=== PATIENT | male | born 1980 | race Caucasian/White ===

== ENCOUNTER → 2017-03-18 08:40 | Outpatient (CLI) | payer MEDICAID, SELFPAY ==
[2017-03-18 10:39] LABS: Absolute Lymphocyte Count 1.92 X10^3/ul (0.83-4.51); Absolute Neutrophil Count 4.6 X10^3/uL (2.0-7.7); Basophil# 0.07 X10^3/uL; Basophil% 0.9 % (0-1); Eosinophil# 0.43 X10^3/uL; Eosinophils% 5.5 % (0-5); Hematocrit 47.2 % (40-54); Hemoglobin 16.7 g/dl (13.0-16.5); Lymphocyte # 1.92 X10^3/ul (4.0); Lymphocyte % 24.5 % (19-41); Mean Corp Hgb Conc 35.4 g/gl (32-36); Mean Corpuscular Hgb 31.2 pg (27.0-32.0); Mean Corpuscular Volume 88.2 fL (80-94); Mean Platelet Vol. 9.7 fl (6.2-12.0); Monocyte% 10.2 % (0-10); Neutrophil % 58.5 % (47-70); POSITIVE COUNT NO; POSITIVE DIFFERENTIAL NO; POSITIVE MORPHOLOGY NO; Platelet Count 228 K/mm3 (150-450); RBC Distribution Width CV 12.5 % (11.6-14.6); RBC Distribution Width SD 40.4 fl (35.1-43.9); Red Blood Count 5.35 M/mm3 (4.6-6.2); White Blood Count 7.9 K/mm3 (4.4-11.0)
[2017-03-18 11:02] LABS: ALB/GLOB Ratio 1.1 RATIO (0.9-2.4); AST(SGOT) 10 U/L (15-37); Alanine Aminotransfer ALT/SGPT 37 U/L (16-61); Alkaline Phosphatase 53 U/L (45-117); Anion Gap 6 (5-15); BUN 20 mg/dL (7-18); BUN/Creat Ratio 19.6 RATIO (10-20); Calcium,Total 8.8 mg/dL (8.5-10.1); Chloride 106 mmol/L (98-107); Cholesterol 208 mg/dL (200); Creatinine, Serum 1.02 mg/dL (0.70-1.30); EST Glomerular Filtration Rate 87 mL/min (>60); Est Glom Filt Rate - Afr Amer 105 mL/min (>60); Globulin 3.5 g/dL (2.2-4.2); Glucose 104 mg/dL (74-106); High Density Lipoprotein 26 mg/dL; Potassium 4.2 mmol/L (3.5-5.1); Protein, Total 7.5 g/dL (6.4-8.2); Sodium Level 139 mmol/L (136-145); Triglycerides 601 mg/dL
== END ==
PROVIDERS: Family Provider Family Medicine; PCP Family Medicine; Visit Provider Family Medicine
DX: Z00.00 Encounter for general adult medical examination without abnormal findings (principal); E78.1 Pure hyperglyceridemia
CPT/HCPCS: 36415; 80053; 80061; 85025

== ENCOUNTER 2017-04-27 16:14 | Emergency (ER) | payer MEDICAID, SELFPAY ==
[2017-04-27 16:17] VITALS: BP 116/78; PULSE 92; PULSE 94; RESP 14; TEMP 37.1; O2SAT 97; O2SAT 99; BMI 29.3
--- NOTE | 2017-04-27 16:56 | EKG12_ITS ---
Test Reason : CP Blood Pressure : / mmHG Vent. Rate : 111 BPM Atrial Rate : 111 BPM P-R Int : 130 ms QRS Dur : 084 ms QT Int : 324 ms P-R-T Axes : 065 065 071 degrees QTc Int : 440 ms Sinus tachycardia Otherwise normal ECG Confirmed by DOROTHY ANDRADE MD ([id number]), pictures editor TIERRA ZEE ([id number] on 05/01/2017 2:23:49 PM Referred By: KANDIS Confirmed By:DOROTHY ANDRADE MD
--- NOTE | 2017-04-27 16:56 | RAD_ITS ---
STUDY: X-RAY CHEST REASON FOR EXAM: Male, 36 years old. Chest pain and nausea intermittently since Friday. History of hypertension. TECHNIQUE: Single AP portable view of the chest. COMPARISON: Prior chest radiograph of December 23, 2016 FINDINGS: The lungs are clear and expanded. There is no demonstrated pleural abnormality. Normal size heart. Normal mediastinum and noe. Normal visualized pulmonary arteries. Normal visualized aortic arch and descending thoracic aorta. Normal visualized thoracic spine. Normal visualized ribs, clavicles, and shoulders. There is no demonstrated abnormality of the visualized soft tissue structures of the upper abdomen. RAD/Chest 1 View (Portable) IMPRESSION: No acute cardiopulmonary findings or changes. Electronically Signed: Selma Ontiveros MD at 17:31 EDT , Service support ,
--- NOTE | 2017-04-27 17:08 | ED.DCSUM_ITS ---
- ER Visit Summary Date of Service: 04/27/17 Chief Complaint: Chest pain History of Present Illness: The patient is a 36 M who presents with chest pain that has been getting worse over the past 4 days. Patient states the pain is intermittent. Patient states the pain is in the substernal area and radiates into his upper abdomen. Patient states the pain is worse with stress. Patient admits to some nausea and vomiting. Patient admits to some mild diaphoresis. Patient denies any shortness of breath. Patient denies any fevers but admits to some chills. Patient has cardiac risk factors of hypercholesterolemia and smoking. Physical Examination: Vital signs are stable. Patient is afebrile. Patient is in no acute distress. Oral mucosa is pink and moist. Neck is supple. Trachea is midline. There is no JVD or lymphadenopathy. Heart was regular rate and rhythm. There are no murmurs noted. Lungs were clear and equal bilaterally. Abdomen is soft. There is normal bowel sounds. There is tenderness of the upper abdomen. There is voluntary guarding. There is no rebound noted. Cranial nerves II through XII are intact. There are no focal motor or sensory deficits noted. The remaining physical exam is within normal limits. Test Results: EKG showed sinus tachycardia with rate of 111. There are no acute ST or T-wave changes noted. There are no prior EKGs available for comparison. CBC, comprehensive metabolic profile, lipase, and troponin were obtained and were all within normal limits. Chest x-ray was within normal limits. Emergency Department Course and Treatment: Patient states his chest pain has resolved but he still has some mild abdominal pain. Patient states he takes omeprazole at home. Patient was encouraged to take that. Patient was instructed to follow-up with his primary care physician in 5-7 days. Patient understood and was agreeable with the plan. All questions were answered. Disposition: Discharge home Impression: Chest pain of uncertain etiology This note was generated with [employer] dictation software. It may contain incorrect words, spelling, and punctuation that were not noted in review of the chart prior to signing ED Disposition - Plan for ED Patient: Disposition: Home or Assisted Living Chief Complaint: Chest Pain Diagnosis: Chest pain of uncertain etiology Instructions: ED Chest Pain Atypical Unkn Cause Referrals: Bruno Tim DO [Primary Care Provider] -
[2017-04-27 17:15] LABS: Absolute Lymphocyte Count 2.33 X10^3/ul (0.83-4.51); Absolute Neutrophil Count 6.1 X10^3/uL (2.0-7.7); Basophil# 0.06 X10^3/uL; Basophil% 0.6 % (0-1); Eosinophil# 0.12 X10^3/uL; Eosinophils% 1.3 % (0-5); Hematocrit 44.7 % (40-54); Hemoglobin 16.2 g/dl (13.0-16.5); Lymphocyte # 2.33 X10^3/ul (4.0); Lymphocyte % 24.9 % (19-41); Mean Corp Hgb Conc 36.2 g/gl (32-36); Mean Corpuscular Hgb 31.5 pg (27.0-32.0); Mean Corpuscular Volume 86.8 fL (80-94); Mean Platelet Vol. 9.4 fl (6.2-12.0); Monocyte# 0.77 X10^3/uL; Monocyte% 8.2 % (0-10); Neutrophil # 6.06 X10^3/uL (2.7-7.7); Neutrophil % 64.7 % (47-70); POSITIVE COUNT NO; POSITIVE DIFFERENTIAL NO; POSITIVE MORPHOLOGY NO; Platelet Count 269 K/mm3 (150-450); RBC Distribution Width CV 12.5 % (11.6-14.6); RBC Distribution Width SD 39.4 fl (35.1-43.9); Red Blood Count 5.15 M/mm3 (4.6-6.2); White Blood Count 9.4 K/mm3 (4.4-11.0)
[2017-04-27] MEDS: Aspirin 81 MG TAB.CHEW 324 MG PO (17:17)
[2017-04-27 17:36] LABS: ALB/GLOB Ratio 1.2 RATIO (0.9-2.4); AST(SGOT) 15 U/L (15-37); Alanine Aminotransfer ALT/SGPT 28 U/L (16-61); Albumin, Serum 3.9 g/dL (3.2-5.0); Alkaline Phosphatase 37 U/L (45-117); Anion Gap 10 (5-15); BUN 11 mg/dL (7-18); BUN/Creat Ratio 10.3 RATIO (10-20); Calcium,Total 8.4 mg/dL (8.5-10.1); Chloride 105 mmol/L (98-107); Creatinine, Serum 1.07 mg/dL (0.70-1.30); EST Glomerular Filtration Rate 82 mL/min (>60); Est Glom Filt Rate - Afr Amer 99 mL/min (>60); Estimated Creatinine Clearance 108.83 ml/min; Globulin 3.3 g/dL (2.2-4.2); Glucose 110 mg/dL (74-106); Lipase 206 U/L (73-393); Potassium 3.3 mmol/L (3.5-5.1); Protein, Total 7.2 g/dL (6.4-8.2); Sodium Level 140 mmol/L (136-145)
[2017-04-27 18:38] VITALS: BP 125/75; PULSE 87; RESP 16; O2SAT 96
[2017-04-27 19:04] VITALS: BP 136/78; PULSE 85; RESP 14; O2SAT 98
[2017-04-27 19:14] VITALS: BP 130/80; PULSE 80; RESP 14; O2SAT 99
== END 2017-04-27 19:15 | disposition home or self-care (01) ==
PROVIDERS: Emergency Provider Emergency Medicine; Family Provider Family Medicine; PCP Family Medicine
DX: R07.89 Other chest pain (principal); R00.0 Tachycardia, unspecified; R11.2 Nausea with vomiting, unspecified; R61 Generalized hyperhidrosis; R68.83 Chills (without fever); E78.00 Pure hypercholesterolemia, unspecified; F17.210 Nicotine dependence, cigarettes, uncomplicated
CPT/HCPCS: 71045; 80053; 83690; 84484; 85025; 93005; 99285; J7030; A4216

== ENCOUNTER 2017-05-13 18:02 | Emergency (ER) | payer MEDICAID, SELFPAY ==
[2017-05-13 18:04] VITALS: BP 146/106; PULSE 104; RESP 18; TEMP 36.8; O2SAT 96; BMI 28.0
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
[2017-05-13 19:03] LABS: Absolute Lymphocyte Count 2.06 X10^3/ul (0.83-4.51); Absolute Neutrophil Count 7.5 X10^3/uL (2.0-7.7); Basophil# 0.01 X10^3/uL; Basophil% 0.1 % (0-1); Eosinophil# 0.15 X10^3/uL; Eosinophils% 1.4 % (0-5); Hematocrit 45.7 % (40-54); Hemoglobin 15.8 g/dl (13.0-16.5); Lymphocyte # 2.06 X10^3/ul (4.0); Lymphocyte % 19.5 % (19-41); Mean Corp Hgb Conc 34.6 g/gl (32-36); Mean Corpuscular Hgb 30.9 pg (27.0-32.0); Mean Corpuscular Volume 89.3 fL (80-94); Mean Platelet Vol. 9.5 fl (6.2-12.0); Monocyte# 0.85 X10^3/uL; Neutrophil # 7.49 X10^3/uL (2.7-7.7); Neutrophil % 70.8 % (47-70); Platelet Count 249 K/mm3 (150-450); RBC Distribution Width CV 13.2 % (11.6-14.6); RBC Distribution Width SD 43.2 fl (35.1-43.9); Red Blood Count 5.12 M/mm3 (4.6-6.2); White Blood Count 10.6 K/mm3 (4.4-11.0)
[2017-05-13 19:04] LABS: POSITIVE COUNT NO; POSITIVE DIFFERENTIAL NO; POSITIVE MORPHOLOGY NO
[2017-05-13 19:09] LABS: Anion Gap 6 (5-15); BUN 14 mg/dL (7-18); BUN/Creat Ratio 12.4 RATIO (10-20); Calcium,Total 8.4 mg/dL (8.5-10.1); Chloride 111 mmol/L (98-107); Creatinine, Serum 1.13 mg/dL (0.70-1.30); EST Glomerular Filtration Rate 77 mL/min (>60); Est Glom Filt Rate - Afr Amer 93 mL/min (>60); Estimated Creatinine Clearance 103.05 ml/min; Glucose 98 mg/dL (74-106); Potassium 3.7 mmol/L (3.5-5.1); Sodium Level 141 mmol/L (136-145)
[2017-05-13 19:17] LABS: Amphetamine Urine VISTA NEGATIVE (<1000 ng/mL); Barbiturate Urine VISTA NEGATIVE (< 200 ng/mL); Benzodiazepine Urine VISTA NEGATIVE (< 200 ng/mL); Cocaine Urine VISTA NEGATIVE (< 300 ng/mL); Ecstacy Urine VISTA NEGATIVE (< 500 ng/mL); Methadone Urine VISTA NEGATIVE (< 300 ng/mL); PCP Urine VISTA NEGATIVE (< 25 ng/mL); THC Urine VISTA NEGATIVE (< 50 ng/mL); Vista UDS pH Range 6
[2017-05-13] MEDS: LORazepam 1 MG Tablet PO (20:04)
[2017-05-13 20:05] VITALS: BP 134/94; PULSE 85; RESP 16; O2SAT 97
--- NOTE | 2017-05-13 20:54 | EKG12_ITS ---
Test Reason : Blood Pressure : / mmHG Vent. Rate : 081 BPM Atrial Rate : 081 BPM P-R Int : 140 ms QRS Dur : 092 ms QT Int : 356 ms P-R-T Axes : 047 036 048 degrees QTc Int : 413 ms Normal sinus rhythm Normal ECG Confirmed by DOROTHY ANDRADE MD ([id number]), editorial project manager TIERRA ZEE ([id number]) on 05/19/2017 3:45:12 PM Referred By: KANDIS Confirmed By:DOROTHY ANDRADE MD
[2017-05-13 21:00] VITALS: PULSE 84; RESP 14; O2SAT 98
[2017-05-13 21:31] LABS: AST(SGOT) 21 U/L (15-37); Alanine Aminotransfer ALT/SGPT 28 U/L (16-61); Albumin, Serum 4.1 g/dL (3.2-5.0); Alkaline Phosphatase 41 U/L (45-117); Bilirubin, Direct 0.11 mg/dL (0.00-0.30); Protein, Total 7.1 g/dL (6.4-8.2)
[2017-05-13 23:43] VITALS: BP 117/73; PULSE 86; O2SAT 96
[2017-05-14] VITALS: PULSE 82; RESP 16; O2SAT 98
--- NOTE | 2017-05-14 00:25 | ED.RN ---
Pt updated that he was accepted to [facility] but would not be able to go until morning due to transport. Pt became very angry and demanded his clothes and belongings, states Im fucking leaving Pt makes multiple threats to run and states you nurses are in for a hell of a night with me im not afraid to hurt people Pt explained he was pink slipped and explanation given as to what that means. Pt became more angry stating we are holding him against his will, and we are taking away his rights explained to patient his alternative options of being medicated or restrained if he got out of hand or violent. Emotional support given for approx 30 minutes. Pt calmed down, pt agrees to stay calm and cooperative. Phone examined for hidden weapons and given back to patient. Snack given. Pt states an understanding of the process and situation.
[2017-05-14 01:05] VITALS: BP 117/79; PULSE 82; PULSE 84; RESP 16; RESP 19; TEMP 36.9; O2SAT 98; O2SAT 99
[2017-05-14 03:38] VITALS: BP 123/87; PULSE 72; RESP 14; O2SAT 96
[2017-05-14 05:53] VITALS: RESP 14
--- NOTE | 2017-05-14 05:53 | ED.RN ---
BREAKFAST ORDER PLACED, PATIENT DENIES NEEDING ANY MORNING MEDICATIONS
--- NOTE | 2017-05-14 07:49 | NURSING ---
0715 CALLED [facility] FOR TRANSPORT. ETA IS ABOUT 1000
--- NOTE | 2017-05-14 08:20 | ED.RN ---
PT ON THE PHONE WITH HIS . PT BEGAN YELLING. THIS NURSE IN THE ROOM. PT REQUESTING TO HAVE THE POLICE CONTACTED SO THE PT CAN FILE A POLICE REPORT
[2017-05-14 08:29] VITALS: BP 144/88; PULSE 72; RESP 16; O2SAT 100
[2017-05-14 10:06] VITALS: BP 134/78; PULSE 84; RESP 16; O2SAT 100
== END 2017-05-14 11:07 ==
PROVIDERS: Emergency Provider Emergency Medicine; Family Provider Family Medicine; PCP Family Medicine
DX: R45.851 Suicidal ideations (principal); R45.850 Homicidal ideations; F32.9 Major depressive disorder, single episode, unspecified; K21.9 Gastro-esophageal reflux disease without esophagitis; E78.00 Pure hypercholesterolemia, unspecified; Z91.5 Personal history of self-harm; Z79.899 Other long term (current) drug therapy; Z72.0 Tobacco use
CPT/HCPCS: 80048; 80076; 80307; 80320; 85025; 93005; 99284; G0480

== ENCOUNTER 2017-05-29 06:44 | Emergency (ER) | payer MEDICAID, SELFPAY ==
[2017-05-29 06:45] VITALS: BP 128/83; PULSE 91; RESP 22; TEMP 36.7; O2SAT 97; BMI 27.6
--- NOTE | 2017-05-29 07:24 | ED.VISSUMM ---
- ER Visit Summary Date of Service: 05/29/17 Chief Complaint: Swollen uvula History of Present Illness: The patient is a [address] Tim and the counseling center. He reports that he woke up this morning and his uvula is swollen. Is touching the back of his tongue and making him gag. Reports that he has sharp pain when he swallows that is 10 out of 10 in severity. Pain is 8/10 otherwise. He denies being ill otherwise. No fever, chills, cough, or neck pain. Of note the patient was admitted to a psychiatric facility approximately 2 weeks ago and was started on Ativan, buspirone, fenofibrate, and olanzapine. His last dose of olanzapine was yesterday morning. Physical Examination: Vitals: Stable. Afebrile. General: Well-nourished and well-developed. Head: Normocephalic atraumatic. HEENT: Swelling that is limited to the uvula. There are no lesions on this. There is no tonsillar enlargement or exudate. No uvular shift. No evidence of peritonsillar abscess. No pain with palpation or movement of his trachea. No angioedema of his lips or tongue. Neck: Supple, no lymphadenopathy. No JVD. Nontender. Cardiovascular: Regular rate and rhythm. No murmurs. Respiratory: No respiratory distress. Clear to auscultation bilaterally. Abdominal: Soft, nontender, nondistended, normal bowel sounds. No guarding, rebound, or peritoneal signs. Back: Nontender. Extremities: Nontender, no edema. Skin: Normal color, no rash. Neurologic: Alert and oriented ?3. Cranial nerves II through XII are intact. Normal strength and sensation. Psych: Normal affect. Emergency Department Course and Treatment: Review of the literature shows that olanzapine can cause angioedema and I suspect that this is the cause of his swollen uvula. It does not appear infectious in nature. He was given a dose of prednisone here. Treatment Plan: Patient will be discharged on a 5 day burst of prednisone and also placed on Zyrtec. He is instructed to not take olanzapine again. Follow-up with Dr. Pike for further treatment of his bipolar disorder. Follow-up with his primary care physician in 1-2 days if not improving. Return to the emergency department for any worsening symptoms. Disposition: To home in improved and stable condition. Impression: 1. Uvulitis secondary to olanzapine. This note was generated with [employer] dictation software. It may contain incorrect words, spelling, and punctuation that were not noted in review of the chart prior to signing ED Disposition - Plan for ED Patient: Chief Complaint: Sore Throat Instructions: ED Uvulitis Prescriptions: Cetirizine HCl [Zyrtec] 10 mg PO DAILY #14 tab.rapdis Prednisone [Deltasone] 60 mg PO DAILY #15 tablet Referrals: Bruno Tim, [Primary Care Provider] - 1-2 Days if not improving Additional Instructions: Suck on ice to help with the swelling. Do not take olanzapine again. Speak with Dr. Pike about other possible medications for your bipolar disorder. Tell her that you had angioedema and uvulitis due to this medication.
--- NOTE | 2017-05-29 07:28 | ED.DCSUM_ITS ---
- ER Visit Summary Date of Service: 05/29/17 Chief Complaint: Swollen uvula History of Present Illness: The patient is a [address] Tim and the counseling center. He reports that he woke up this morning and his uvula is swollen. Is touching the back of his tongue and making him gag. Reports that he has sharp pain when he swallows that is 10 out of 10 in severity. Pain is 8/ 10 otherwise. He denies being ill otherwise. No fever, chills, cough, or neck pain. Of note the patient was admitted to a psychiatric facility approximately 2 weeks ago and was started on Ativan, buspirone, fenofibrate, and olanzapine. His last dose of olanzapine was yesterday morning. Physical Examination: Vitals: Stable. Afebrile. General: Well-nourished and well-developed. Head: Normocephalic atraumatic. HEENT: Swelling that is limited to the uvula. There are no lesions on this. There is no tonsillar enlargement or exudate. No uvular shift. No evidence of peritonsillar abscess. No pain with palpation or movement of his trachea. No angioedema of his lips or tongue. Neck: Supple, no lymphadenopathy. No JVD. Nontender. Cardiovascular: Regular rate and rhythm. No murmurs. Respiratory: No respiratory distress. Clear to auscultation bilaterally. Abdominal: Soft, nontender, nondistended, normal bowel sounds. No guarding, rebound, or peritoneal signs. Back: Nontender. Extremities: Nontender, no edema. Skin: Normal color, no rash. Neurologic: Alert and oriented ?3. Cranial nerves II through XII are intact. Normal strength and sensation. Psych: Normal affect. Emergency Department Course and Treatment: Review of the literature shows that olanzapine can cause angioedema and I suspect that this is the cause of his swollen uvula. It does not appear infectious in nature. He was given a dose of prednisone here. Treatment Plan: Patient will be discharged on a 5 day burst of prednisone and also placed on Zyrtec. He is instructed to not take olanzapine again. Follow- up with Dr. Pike for further treatment of his bipolar disorder. Follow-up with his primary care physician in 1-2 days if not improving. Return to the emergency department for any worsening symptoms. Disposition: To home in improved and stable condition. Impression: 1. Uvulitis secondary to olanzapine. This note was generated with [employer] dictation software. It may contain incorrect words, spelling, and punctuation that were not noted in review of the chart prior to signing ED Disposition - Plan for ED Patient: Chief Complaint: Sore Throat Instructions: ED Uvulitis Prescriptions: Cetirizine HCl [Zyrtec] 10 mg PO DAILY #14 tab.rapdis Prednisone [Deltasone] 60 mg PO DAILY #15 tablet Referrals: Bruno Tim, [Primary Care Provider] - 1-2 Days if not improving Additional Instructions: Suck on ice to help with the swelling. Do not take olanzapine again. Speak with Dr. Pike about other possible medications for your bipolar disorder. Tell her that you had angioedema and uvulitis due to this medication.
[2017-05-29 07:35] VITALS: BP 139/77; PULSE 62; RESP 15; O2SAT 98
[2017-05-29] MEDS: predniSONE 20 MG Tablet 60 MG PO (07:43)
== END 2017-05-29 07:45 | disposition home or self-care (01) ==
PROVIDERS: Emergency Provider Emergency Medicine; Family Provider Family Medicine; PCP Family Medicine
DX: K12.2 Cellulitis and abscess of mouth (principal); T43.595A Adverse effect of other antipsychotics and neuroleptics, initial encounter; Y92.9 Unspecified place or not applicable; R51 Headache; E78.00 Pure hypercholesterolemia, unspecified; F32.9 Major depressive disorder, single episode, unspecified; F17.200 Nicotine dependence, unspecified, uncomplicated; Z79.899 Other long term (current) drug therapy
CPT/HCPCS: 99283

== ENCOUNTER 2017-06-10 07:18 | Emergency (ER) | payer MEDICAID, SELFPAY ==
[2017-06-10 07:18] VITALS: BP 142/89; PULSE 88; RESP 20; TEMP 36.8; O2SAT 100; BMI 29.3
[2017-06-10] MEDS: MethylPREDNISolone 125 MG/2 ML Vial IV (07:26)
--- NOTE | 2017-06-10 07:32 | ED.DCSUM_ITS ---
- ER Visit Summary Date of Service: 06/10/17 Chief Complaint: Allergic reaction History of Present Illness: The patient is a 36 M who states he is having an allergic reaction. He states an hour ago he started feeling tongue and throat swelling. He denied being short of breath. He has been taking perphenazine for the past week. He thinks that this may be the cause. He did use his EpiPen at home. EMS was called and he was given 50 mg of IV Benadryl. He states that he is starting to feel better. Physical Examination: Vital signs reviewed. HEENT exam does show some mild uvular swelling, but the uvula is midline. There is no tongue swelling. Heart is regular rate and rhythm without murmurs. Lungs are clear to auscultation. Abdomen is soft and nontender. Extremities reveal no edema. Skin exam normal. Neurologic exam normal. Test Results: None indicated Emergency Department Course and Treatment: Patient was given site Medrol and Pepcid IV. He was observed for over an hour. He feels much better and wants to go home for a phone interview. I will send him home with prednisone. He will stop the offending medication and will follow up with his PCP Treatment Plan: [] Disposition: Discharge Impression: Allergic reaction This note was generated with [employer] dictation software. It may contain incorrect words, spelling, and punctuation that were not noted in review of the chart prior to signing ED Disposition - Plan for ED Patient: Chief Complaint: Allergic Reaction Referrals: Bruno Tim DO [Primary Care Provider] -
[2017-06-10 07:50] VITALS: BP 140/83; PULSE 75; RESP 20; O2SAT 97
--- NOTE | 2017-06-10 08:27 | ED.DEP ---
ED Disposition - Plan for ED Patient: Disposition: Home or Assisted Living Chief Complaint: Allergic Reaction Instructions: ED Drug React Allergic Prescriptions: Prednisone [Deltasone] 40 mg PO DAILY #8 tab Referrals: Bruno Tim DO [Primary Care Provider] -
[2017-06-10 08:47] VITALS: BP 139/95; PULSE 87; RESP 18; TEMP 36.6; O2SAT 98
== END 2017-06-10 08:53 | disposition home or self-care (01) ==
PROVIDERS: Emergency Provider Emergency Medicine; Family Provider Family Medicine; PCP Family Medicine
DX: T78.40XA Allergy, unspecified, initial encounter (principal); K13.79 Other lesions of oral mucosa; X58.XXXA Exposure to other specified factors, initial encounter; K21.9 Gastro-esophageal reflux disease without esophagitis; F31.9 Bipolar disorder, unspecified; Z79.899 Other long term (current) drug therapy
CPT/HCPCS: 96365; 96374; 99284; J7030; A4216; J3490

== ENCOUNTER → 2017-07-28 09:22 | Outpatient (CLI) | payer MEDICAID, SELFPAY ==
[2017-07-28 10:54] LABS: Hematocrit 46.3 % (40-54); Hemoglobin 15.6 g/dl (13.0-16.5); Mean Corp Hgb Conc 33.7 g/gl (32-36); Mean Corpuscular Hgb 30.8 pg (27.0-32.0); Mean Corpuscular Volume 91.3 fL (80-94); Mean Platelet Vol. 10.2 fl (6.2-12.0); Platelet Count 244 K/mm3 (150-450); RBC Distribution Width SD 43.2 fl (35.1-43.9); Red Blood Count 5.07 M/mm3 (4.6-6.2)
[2017-07-28 10:56] LABS: Scan Indicated on CBC? Y/N NO
[2017-07-28 11:30] LABS: Valproic Acid (Depakene) Level 9 ug/mL (50-100)
[2017-07-28 11:44] LABS: BUN 17 mg/dL (7-18); Creatinine, Serum 1.22 mg/dL (0.70-1.30); EST Glomerular Filtration Rate 70 mL/min (>60); Glucose 98 mg/dL (74-106)
[2017-07-28 11:45] LABS: AST(SGOT) 14 U/L (15-37); Alanine Aminotransfer ALT/SGPT 25 U/L (16-61); Albumin, Serum 3.9 g/dL (3.2-5.0); Alkaline Phosphatase 33 U/L (45-117); Anion Gap 8 (5-15); BUN/Creat Ratio 13.9 RATIO (10-20); Bilirubin, Direct 0.07 mg/dL (0.00-0.30); Calcium,Total 8.7 mg/dL (8.5-10.1); Chloride 109 mmol/L (98-107); Est Glom Filt Rate - Afr Amer 85 mL/min (>60); Globulin 3.3 g/dL (2.2-4.2); Potassium 4.3 mmol/L (3.5-5.1); Protein, Total 7.2 g/dL (6.4-8.2); Sodium Level 143 mmol/L (136-145); Thyroid Stim Hormone (TSH) 1.38 uIU/mL (0.358-3.74)
== END ==
PROVIDERS: Family Provider Family Medicine; PCP Family Medicine; Visit Provider Psychiatry & Neurology Psychiatry
DX: R53.83 Other fatigue (principal); F19.10 Other psychoactive substance abuse, uncomplicated; Z79.899 Other long term (current) drug therapy
CPT/HCPCS: 36415; 80048; 80076; 80164; 84443; 85027

== ENCOUNTER → 2017-09-15 09:31 | Outpatient (CLI) | payer MEDICAID, SELFPAY ==
[2017-09-15 12:20] LABS: Cholesterol 133 mg/dL (200); High Density Lipoprotein 33 mg/dL; Triglycerides 276 mg/dL; Very Low Density Lipoprotein 55 mg/dL (5-40)
[2017-09-16 15:10] LABS: LDL, Direct 120295 68 mg/dL (0-99)
== END ==
PROVIDERS: Family Provider Family Medicine; PCP Family Medicine; Visit Provider Family Medicine
DX: E78.1 Pure hyperglyceridemia (principal)
CPT/HCPCS: 36415; 80061; 83721

== ENCOUNTER → 2018-01-02 11:19 | Outpatient (CLI) | payer MEDICAID, SELFPAY ==
--- NOTE | 2018-01-02 11:30 | EKG12_ITS ---
Test Reason : PRE OP Blood Pressure : / mmHG Vent. Rate : 067 BPM Atrial Rate : 067 BPM P-R Int : 152 ms QRS Dur : 094 ms QT Int : 374 ms P-R-T Axes : 052 048 055 degrees QTc Int : 395 ms Normal sinus rhythm Normal ECG Confirmed by RAYMOND PERRY, DOROTHY ([id number]), order editor TIERRA ZEE ([id number]) on 01/02/2018 2:57:21 PM Referred By: Hany Castillo Confirmed By:DOROTHY ANDRADE MD
== END ==
PROVIDERS: Family Provider Family Medicine; PCP Family Medicine; Referring Provider Otolaryngology Otolaryngology/Facial Plastic Surgery; Visit Provider Otolaryngology Otolaryngology/Facial Plastic Surgery
DX: Z01.818 Encounter for other preprocedural examination (principal)
CPT/HCPCS: 93005

== ENCOUNTER 2018-03-10 09:44 | Emergency (ER) | payer MEDICAID, SELFPAY ==
[2018-03-10 09:47] VITALS: BP 135/94; PULSE 77; RESP 18; TEMP 36.6; O2SAT 97; BMI 32.8
[2018-03-10] MEDS: DiphenhydrAMINE 50 MG/ML Syringe IV (09:54)
[2018-03-10] MEDS: MethylPREDNISolone 125 MG/2 ML Vial IV (09:54)
--- NOTE | 2018-03-10 10:22 | ED.DCSUM_ITS ---
- ER Visit Summary Date of Service: 03/10/18 Chief Complaint: Swollen uvula History of Present Illness: The patient is a 37 M history of anxiety and reflux. Patient has had a swollen uvula 3 other times. States at 9 AM this morning hestarted swelling up again. Denies any trouble breathing. No itching. No tongue or lip swelling. He is on no LANA inhibitors or any blood pressure medications. Physical Examination: Well-appearing male no acute distress. Vital signs are stable afebrile. No stridor. No drooling. He is able to handle his own secretions. HEENT exam posterior pharynx the uvula is moderately swollen. Again is not having no trouble breathing or swallowing. Tongue and lips are normal. Neck nontender. Trachea midline. No lymphadenopathy. Lungs clear to auscultation bilaterally. Heart regular rate and rhythm no murmur. Abdomen soft and nontender. Extremities moves all 4. Calves nontender. Skin no rashes. Neurologically is awake alert with no focal deficits. Test Results: None Emergency Department Course and Treatment: Treated with IV Solu-Medrol, Benadryl and Pepcid. He will be observed in the ER. We will repeat exams patient is doing well. Is gotten no worse and may be sligh tly better. He is having no trouble swallowing or breathing is comfortable being discharged home. Treatment Plan: Prednisone daily 40 mg for 4 days. Return if worse. Disposition: Discharge Impression: Acute uvulitis This note was generated with [employer] dictation software. It may contain incorrect words, spelling, and punctuation that were not noted in review of the chart prior to signing ED Disposition - Plan for ED Patient: Chief Complaint: Allergic Reaction Referrals: Bruno Tim DO [Primary Care Provider] -
[2018-03-10 10:55] VITALS: BP 161/97; PULSE 75; RESP 18; O2SAT 98
[2018-03-10 11:38] VITALS: BP 164/86; PULSE 77; RESP 18; O2SAT 97
--- NOTE | 2018-03-10 13:54 | ED.DEP ---
ED Disposition - Plan for ED Patient: Disposition: Home or Assisted Living Chief Complaint: Allergic Reaction Instructions: ED Uvulitis Prescriptions: Prednisone [Deltasone] 40 mg PO DAILY 4 Days tab Referrals: Bruno Tim DO [Primary Care Provider] - 3-5 Days if not improving Additional Instructions: Prednisone daily until swelling goes down. Drink plenty of ice water to help decrease the swelling. Return if feeling worse. This should progressively get better the
[2018-03-10 14:11] VITALS: BP 136/70; PULSE 79; RESP 18; O2SAT 95
== END 2018-03-10 14:19 | disposition home or self-care (01) ==
PROVIDERS: Emergency Provider Emergency Medicine; Family Provider Family Medicine; PCP Family Medicine
DX: K12.2 Cellulitis and abscess of mouth (principal); F41.9 Anxiety disorder, unspecified; K21.9 Gastro-esophageal reflux disease without esophagitis; Z79.899 Other long term (current) drug therapy; Z72.0 Tobacco use
CPT/HCPCS: 96374; 96375; 99283; A4216; J3490

== ENCOUNTER → 2018-03-16 09:45 | Outpatient (CLI) | payer MEDICAID, SELFPAY ==
[2018-03-10 09:47] VITALS: BMI 32.8
[2018-03-19 04:10] LABS: Almond <0.10 kU/L (Class 0); Banana <0.10 kU/L (Class 0); Barley, Whole Grain 0.13 kU/L (Class 0/I); Beef <0.10 kU/L (Class 0); Carrot <0.10 kU/L (Class 0); Casein <0.10 kU/L (Class 0); Cashew <0.10 kU/L (Class 0); Celery <0.10 kU/L (Class 0); Cheddar Cheese <0.10 kU/L (Class 0); Chicken <0.10 kU/L (Class 0); Chocolate <0.10 kU/L (Class 0); Clam <0.10 kU/L (Class 0); Codfish <0.10 kU/L (Class 0); Corn 0.11 kU/L (Class 0/I); Crab <0.10 kU/L (Class 0); Egg, White <0.10 kU/L (Class 0); Egg, Whole <0.10 kU/L (Class 0); Egg, Yolk <0.10 kU/L (Class 0); Garlic <0.10 kU/L (Class 0); Gluten <0.10 kU/L (Class 0); Hazelnut/Filbert <0.10 kU/L (Class 0); Lettuce <0.10 kU/L (Class 0); Lobster <0.10 kU/L (Class 0); Milk (Cow) <0.10 kU/L (Class 0); Oat <0.10 kU/L (Class 0); Onion <0.10 kU/L (Class 0); Orange <0.10 kU/L (Class 0); Pea <0.10 kU/L (Class 0); Peach <0.10 kU/L (Class 0); Pecan <0.10 kU/L (Class 0); Pork <0.10 kU/L (Class 0); Potato, White <0.10 kU/L (Class 0); Rice <0.10 kU/L (Class 0); Rye 0.24 kU/L (Class 0/I); Salmon <0.10 kU/L (Class 0); Shrimp <0.10 kU/L (Class 0); Soybean <0.10 kU/L (Class 0); Strawberry <0.10 kU/L (Class 0); Tuna <0.10 kU/L (Class 0); Walnut, (Food) <0.10 kU/L (Class 0); Yeast <0.10 kU/L (Class 0)
[2018-03-19 07:52] LABS: Apple <0.10 kU/L (Class 0); Lactalbumin, Alpha <0.10 kU/L (Class 0); Peanut <0.10 kU/L (Class 0); Turkey <0.10 kU/L (Class 0)
== END ==
PROVIDERS: Family Provider Family Medicine; PCP Family Medicine; Visit Provider Family Medicine
DX: K12.2 Cellulitis and abscess of mouth (principal); R51 Headache; F31.60 Bipolar disorder, current episode mixed, unspecified; F41.1 Generalized anxiety disorder
CPT/HCPCS: 36415; 86003; 86160; 87070

== ENCOUNTER 2018-04-16 18:13 | Emergency (ER) | payer MEDICAID, SELFPAY ==
[2018-04-16] VITALS (7 sets, daily range): BP systolic 142–155; BP diastolic 90–108; PULSE 91–113; RESP 16–27; TEMP 37.3; O2SAT 94–97; BMI 34.0
[2018-04-16] MEDS: MethylPREDNISolone 125 MG/2 ML Vial IV (20:10)
[2018-04-16] MEDS: DiphenhydrAMINE 50 MG/ML Syringe 25 MG IV (20:10)
--- NOTE | 2018-04-16 22:09 | ED.DCSUM_ITS ---
- ER Visit Summary Date of Service: 04/16/18 Chief Complaint: Allergic reaction History of Present Illness: The patient is a 37 M with a history of recurrent uvulitis. Patient had allergy shots this morning which she has had in the past without difficulty. He then ate at [employer] around 415 this afternoon. Around 5 PM he started feeling his throat was tightening. Family member did note that his uvula seemed to be swelling again. He gave himself an EpiPen just prior to 6 PM and came in for evaluation. Patient states his symptoms are improving. Physical Examination: Blood pressure is 155/108, temperature 99.2, heart rate 107, respiratory rate 16, pulse ox 94% on room air. Patient sitting upright in bed no acute distress. He speaks with a strong voice and is tolerating secretions well. Head neck examination was mild uvula edema. No tongue edema noted. Heart is regular rate and rhythm. Lungs sounds clear. Abdomen is soft nontender. Skin exam reveals no rash or lesions. Test Results: [] Emergency Department Course and Treatment: Patient was given Benadryl, Pepcid, and Solu-Medrol. He was rechecked and observed for 2 hours. Symptoms are improved. He will be given prednisone for home. He does have another EpiPen at home. Treatment Plan: [] Disposition: Discharge Impression: Recurrent uvulitis This note was generated with [employer] dictation software. It may contain incorrect words, spelling, and punctuation that were not noted in review of the chart prior to signing ED Disposition - Plan for ED Patient: Disposition: Home or Assisted Living Instructions: ED Allergic Reaction General Other Prescriptions: Prednisone 10 mg PO UD #33 tablet Referrals: Bruno Tim DO [Primary Care Provider] - 5-7 Days
== END 2018-04-16 22:18 | disposition home or self-care (01) ==
PROVIDERS: Emergency Provider Emergency Medicine; Family Provider Family Medicine; PCP Family Medicine
DX: K12.2 Cellulitis and abscess of mouth (principal); K21.9 Gastro-esophageal reflux disease without esophagitis; G47.33 Obstructive sleep apnea (adult) (pediatric); F31.9 Bipolar disorder, unspecified; Z72.0 Tobacco use
CPT/HCPCS: 96374; 96375; 99285; A4216; J3490

== ENCOUNTER → 2018-05-01 16:05 | Outpatient (CLI) | payer MEDICAID, SELFPAY ==
[2018-04-16 18:18] VITALS: BMI 34.0
[2018-05-04 16:07] LABS: Endomysial Antibody IgA Negative (Negative)
[2018-05-05 15:26] LABS: Immunoglobulin A 235 mg/dL (90-386); t-Transglutaminase IgA <2 U/mL (0-3)
== END ==
PROVIDERS: Family Provider Family Medicine; PCP Family Medicine; Visit Provider Family Medicine
DX: K21.0 Gastro-esophageal reflux disease with esophagitis (principal); Z91.018 Allergy to other foods
CPT/HCPCS: 36415; 82784; 83516; 86255

== ENCOUNTER 2018-06-04 13:26 | Emergency (ER) | payer MEDICAID, SELFPAY ==
[2018-04-16 18:18] VITALS: BMI 34.0
[2018-06-04 13:27] VITALS: BP 147/84; PULSE 95; RESP 18; TEMP 37; O2SAT 96; BMI 34.0
--- NOTE | 2018-06-04 14:05 | ED.VIS.GEN ---
History of Present Illness Chief Complaint: Bite Detail of Chief Complaint: Redness anterior proximal right leg Informant: Patient, Significant Other Onset: Yesterday Context: Sudden Onset Timing: Continuous Quality: Redness and warmth Location: Anterior right leg Current Severity: Mild Maximum Severity: Mild Worsened by: Nothing Relieved by: Nothing Associated Symptoms: Redness, warmth, swelling and discomfort Narrative: 37-year-old male presents with lesion proximal anterior right leg. He believes he was bit by something. He denies fever or chills. Denies history medical fever, murmur, SBE, IV drug use or being immune suppressed. He denies antibiotic allergies. Prior similar symptoms: No Recent Illness/Hospitalization: No - Past Medical History (1) GERD with esophagitis Status: Acute Past Medical History - Allergies and Home Meds Allergies/Adverse Reactions: Allergies calamine Allergy (Verified 06/04/18 13:29) Swelling codeine Allergy (Verified 06/04/18 13:29) Hives perphenazine Allergy (Verified 06/04/18 13:29) Swelling rizatriptan Allergy (Verified 06/04/18 13:29) Anaphylaxis topiramate Allergy (Verified 06/04/18 13:29) Anaphylaxis morphine Adverse Reaction (Verified 06/04/18 13:29) Nausea/Vom/Diarrhea ENVIRONMENTAL Allergy (Uncoded 06/04/18 13:29) Itching Primary Care Physician: Bruno Tim DO [Primary Care Provider] - Prior records reviewed: Yes Surgical History: no surgical history Lives: Spouse/ Significant Other Smoking Status: Former smoker Alcohol: None Review of Systems General: Denies: Chills, Fever, Malaise, Subjective, Sweats, Weight loss, - Cardiovascular: Denies: Chest pain, Palpitations, Heart racing, -, - Gastrointestinal: Denies: Abdominal pain, Nausea, Vomiting, Diarrhea, Constipation, Melena, Hematochezia, -, - Skin: Reports: Rash, Wounds. Denies: Abscess, Abrasions Neurological: Denies: Headache, Weakness, Parasthesia, Numbness Hematologic: Denies: Easy bruising, Easy bleeding Allergy: Denies: Uticaria, Swelling of the mouth Physical Exam Vital Signs/Narrative: Vital Signs Temp Pulse Resp BP Pulse Ox 06/04/18 13:27 98.6 F 95 18 147/84 H 96 Inital Vital Signs reviewed: Yes General: Well nourished, Well developed, No Acute Distress Head: Normocephalic, Atraumatic Eyes: Perrl, EOMI. Negative for: Pale conjunctiva, Scleral icterus Cardiovascular: Regular rate, Regular rhythm, No murmurs, Normal S1, Normal S2 Respiratory: No distress, CTA bilaterally, Chest nontender Extremities: Nontender, No edema, - - There is an area 4 cm diameter that is erythematous, warm with induration. There is no lymphangitis. There is no popliteal angle lymphadenopathy. DP and PT pulses are palpable. Skin: Normal color, Rash - Cellulitis anterior proximal right leg Neurological: Alert, Oriented x3, Cranial nerves II-XII grossly intact, Normal Strength, Normal Sensation, Normal Gait Psychological: Normal affect, Normal Mood Diagnostic/Tx/Re-eval - Medical Decision Making Patient with cellulitis. Will treat with oral antibiotics since vital signs are normal and not febrile. Received first dose of cephalexin and Bactrim in the emergency department. Follow-up with primary care physician in 2 days otherwise return for wound reevaluation. ED Disposition - Plan for ED Patient: Disposition: Home or Assisted Living Diagnosis: Cellulitis of right leg without foot Instructions: ED Infec Skin Cellulitis Prescriptions: Smz/Tmp Ds [Bactrim Ds] 1 tablet PO BID #14 tablet Cephalexin [Keflex] 500 mg PO 4X/DAY #28 capsule Referrals: Bruno Tim DO [Primary Care Provider] - 2 Days for wound check Additional Instructions: Your prescriptions were electronically transmitted to [facility] your designated pharmacy of choice. If you are unable to be seen by Dr. Tim for wound evaluation in 2 days please return to the emergency department for reevaluation.
[2018-06-04] MEDS: Smz/Tmp Ds Tablet 1 TABLET PO (14:25)
[2018-06-04] MEDS: Cephalexin 250 MG Capsule 500 MG PO (14:25)
[2018-06-04 14:29] VITALS: BP 139/87; PULSE 84; RESP 18; O2SAT 97
== END 2018-06-04 14:29 | disposition home or self-care (01) ==
PROVIDERS: Emergency Provider Emergency Medicine; Family Provider Family Medicine; PCP Family Medicine
DX: S80.871A Other superficial bite, right lower leg, initial encounter (principal); L03.115 Cellulitis of right lower limb; X58.XXXA Exposure to other specified factors, initial encounter; Y93.9 Activity, unspecified; Y92.9 Unspecified place or not applicable; K21.0 Gastro-esophageal reflux disease with esophagitis; Z87.891 Personal history of nicotine dependence
CPT/HCPCS: 99283

== ENCOUNTER 2018-06-05 13:18 | Inpatient (IN) | payer MEDICAID, SELFPAY ==
[2018-06-04 13:27] VITALS: BMI 34.0
[2018-06-05 13:19] VITALS: BP 129/78; PULSE 98; RESP 14; TEMP 38; O2SAT 97; BMI 32.7
--- NOTE | 2018-06-05 14:43 | ED.VIS.GEN ---
History of Present Illness Chief Complaint: Cellulitis Detail of Chief Complaint: Swelling and rash is worse Informant: Patient, Significant Other Onset: Yesterday Context: Sudden Onset Timing: Continuous Quality: Cellulitis Location: Anterior right leg Current Severity: Moderate Maximum Severity: Moderate Worsened by: Nothing Relieved by: Nothing Associated Symptoms: Fever, chills and pain Narrative: Patient was seen yesterday. He had cellulitis that was approximately 4 cm in diameter proximal anterior right leg. There was no evidence of abscess. He was treated with IV antibiotics and given prescription for cephalexin and Bactrim. Patient presents because of redness of the entire leg with pain and limping. He states he is taken antibiotics. Prior similar symptoms: Yes Recent Illness/Hospitalization: Yes - Past Medical History (1) GERD with esophagitis Status: Acute Past Medical History - Allergies and Home Meds Allergies/Adverse Reactions: Allergies calamine Allergy (Verified 06/05/18 13:24) Swelling codeine Allergy (Verified 06/05/18 13:24) Hives perphenazine Allergy (Verified 06/05/18 13:24) Swelling rizatriptan Allergy (Verified 06/05/18 13:24) Anaphylaxis topiramate Allergy (Verified 06/05/18 13:24) Anaphylaxis morphine Adverse Reaction (Verified 06/05/18 13:24) Nausea/Vom/Diarrhea ENVIRONMENTAL Allergy (Uncoded 06/05/18 13:24) Itching Primary Care Physician: Bruno Tim DO [Primary Care Provider] - Prior records reviewed: Yes Surgical History: no surgical history Lives: Spouse/ Significant Other, With Family Smoking Status: Never smoker Alcohol: None Drugs: None Review of Systems General: Reports: Chills, Fever, Subjective. Denies: Malaise, Sweats, Weight loss, - Eyes: Denies: Visual changes - bilaterally, Diplopia ENT: Denies: Rhinorrhea, Sore throat Cardiovascular: Denies: Chest pain, Palpitations Respiratory: Denies: Dyspnea, Cough, Dyspnea on exertion Gastrointestinal: Denies: Nausea, Vomiting Musculoskeletal: Reports: Swelling, Extremity Pain. Denies: Myalgias, Arthralgias, Neck pain, Back pain Skin: Reports: Rash, Wounds, - - Patient has a small wound which is unchanged. The area was palpated with no fluctuance. Unable to express any fluid from the small wound.. Denies: Abscess Neurological: Denies: Headache, Weakness Hematologic: Denies: Easy bruising, Easy bleeding Physical Exam Vital Signs/Narrative: Vital Signs Temp Pulse Resp BP Pulse Ox 06/05/18 13:19 100.4 F H 98 14 129/78 H 97 Inital Vital Signs reviewed: Yes General: Well nourished, Well developed, No Acute Distress Head: Normocephalic, Atraumatic Eyes: Perrl, EOMI. Negative for: Pale conjunctiva, Scleral icterus ENT: Moist mucous membranes, No rhinorrhea, TM's clear Neck: Supple, Nontender, No lymphadenopathy, No JVD Cardiovascular: Regular rate, Regular rhythm, No murmurs, Normal S1, Normal S2 Respiratory: No distress, CTA bilaterally, Chest nontender Extremities: Tenderness Skin: Normal color, Rash. Negative for: Cyanosis, Jaundice Neurological: Alert, Oriented x3, Cranial nerves II-XII grossly intact, Normal Strength, Normal Sensation Psychological: Normal affect, Normal Mood Diagnostic/Tx/Re-eval Laboratory Results 06/05/18 06/05/18 06/05/18 14:33 14:33 14:33 WBC 12.1 H RBC 5.13 Hgb 15.8 Hct 45.6 MCV 88.9 MCH 30.8 MCHC 34.6 RDW 12.8 RDW Differential 41.1 Plt Count 234 MPV 9.5 Immature Gran % (Auto) 0.200 Neut % (Auto) 77.8 H Lymph % (Auto) 13.6 L [place] % (Auto) 7.5 Eos % (Auto) 0.7 Baso % (Auto) 0.2 Absolute Neuts (auto) 9.4 H Absolute Lymphs (auto) 1.64 Total Counted Not Reportable Sodium 139 Potassium 3.9 Chloride 106 Carbon Dioxide 25.0 Anion Gap 8 BUN 11 Creatinine 1.20 Estim Creat Clear Calc 88.02 Est GFR (MDRD) Af Amer 86 Est GFR (MDRD) Non-Af 71 BUN/Creatinine Ratio 9.2 L Glucose 99 Lactic Acid 1.1 Calcium 9.2 - Medical Decision Making Patient returns after appropriate outpatient trial. He failed outpatient trial. He is febrile today. Blood work is obtained to assess for sepsis and specifically severe. He was given dose of IV antibiotics after blood cultures were obtained. He will require admission to the hospital. We will compared laboratory results. ED Disposition - Plan for ED Patient: Disposition: Acute Care Hospital [facility] Diagnosis: Cellulitis of right leg without foot, Sepsis Referrals: Bruno Tim DO [Primary Care Provider] -
[2018-06-05 14:54] LABS: Absolute Lymphocyte Count 1.64 X10^3/ul (0.83-4.51); Absolute Neutrophil Count 9.4 X10^3/uL (2.0-7.7); Basophil# 0.02 X10^3/uL; Basophil% 0.2 % (0-1); Eosinophil# 0.09 X10^3/uL; Eosinophils% 0.7 % (0-5); Hematocrit 45.6 % (40-54); Hemoglobin 15.8 g/dl (13.0-16.5); Lymphocyte # 1.64 X10^3/ul (4.0); Lymphocyte % 13.6 % (19-41); Mean Corp Hgb Conc 34.6 g/gl (32-36); Mean Corpuscular Hgb 30.8 pg (27.0-32.0); Mean Corpuscular Volume 88.9 fL (80-94); Mean Platelet Vol. 9.5 fl (6.2-12.0); Monocyte# 0.91 X10^3/uL; Monocyte% 7.5 % (0-10); Neutrophil # 9.39 X10^3/uL (2.7-7.7); Neutrophil % 77.8 % (47-70); Platelet Count 234 K/mm3 (150-450); RBC Distribution Width CV 12.8 % (11.6-14.6); RBC Distribution Width SD 41.1 fl (35.1-43.9); Red Blood Count 5.13 M/mm3 (4.6-6.2); White Blood Count 12.1 K/mm3 (4.4-11.0)
[2018-06-05 14:56] LABS: POSITIVE COUNT NO; POSITIVE DIFFERENTIAL NO; POSITIVE MORPHOLOGY NO
[2018-06-05] MEDS: 0.9% Normal Saline 1,000 ML 1000 ML IV (14:58)
[2018-06-05] MEDS: Ceftriaxone 1 GM/50 ML BAG IV (14:59)
[2018-06-05 15:05] LABS: Anion Gap 8 (5-15); BUN 11 mg/dL (7-18); BUN/Creat Ratio 9.2 RATIO (10-20); Calcium,Total 9.2 mg/dL (8.5-10.1); Chloride 106 mmol/L (98-107); EST Glomerular Filtration Rate 71 mL/min (>60); Est Glom Filt Rate - Afr Amer 86 mL/min (>60); Estimated Creatinine Clearance 88.02 ml/min; Glucose 99 mg/dL (74-106); Potassium 3.9 mmol/L (3.5-5.1); Sodium Level 139 mmol/L (136-145)
[2018-06-05 15:27] LABS: Lactic Acid 1.1 mmol/L (0.4-2.0)
[2018-06-05 16:08] VITALS: BP 128/78; PULSE 74; RESP 16; O2SAT 98
--- NOTE | 2018-06-05 16:11 | HP.PCM_ITS ---
Problem List (1) Cellulitis of right leg without foot Status: Acute (2) H. pylori infection Status: Resolved (3) GERD with esophagitis Status: Chronic History of Present Illness Date of Admission: 06/05/18 Chief Complaint: Right leg pain, redness. The patient is a 37 year old M who presents to the Emergency Room due to right lower extremity pain and redness. He initially presented to the ER yesterday and was treated for cellulitis and discharged home on Bactrim and Keflex. He reports increased redness and pain. He also reports fever, chills and nausea. Patient notes a small black scab on his right barone. He reports a minimal amount of pus drainage following attempting to shave area. He states he initially thought it was an ingrown hair. He denies injury or trauma to the right lower extremity. He denies any known insect bite. His other past medical history includes DL, GERD and Anxiety. Past Medical History Past Medical History (Chronic Problems): Chronic Problems GERD with esophagitis (Chronic) Allergies calamine Allergy (Verified 06/05/18 13:24) Swelling codeine Allergy (Verified 06/05/18 13:24) Hives perphenazine Allergy (Verified 06/05/18 13:24) Swelling rizatriptan Allergy (Verified 06/05/18 13:24) Anaphylaxis topiramate Allergy (Verified 06/05/18 13:24) Anaphylaxis morphine Adverse Reaction (Verified 06/05/18 13:24) Nausea/Vom/Diarrhea ENVIRONMENTAL Allergy (Uncoded 06/05/18 13:24) Itching Home Medications: Ambulatory Orders Medication Instructions Recorded Omeprazole [Prilosec] 40 mg PO DAILY 03/08/13 Epi Pen (for allergic rxn) [Epi 0.3 mg IM X1 PRN 08/22/14 Pen] Buspirone HCl 7.5 mg PO BID 05/13/17 Surgical History: - - Right foot surgery. Psychiatric History: Anxiety Lives: Spouse/ Significant Other Smoking Status: Former smoker - Recent cessation Alcohol: None Drugs: None - *Family History Maternal History Items: Diabetes, Heart Disease, Hypertension, - - Mini stroke Paternal History Items: - - Father estranged, denies known paternal medical history. Review of Systems Constitutional: Reports: Chills, Fever HEENT: Denies: Head Aches, Sinus Congestion, Sinus Drainage Cardiovascular: Denies: Chest Pain, Palpitations Respiratory: Denies: Cough, Shortness of breath at rest, Sputum production Gastrointestinal: Reports: Nausea. Denies: Abdominal Pain, Vomiting Genitourinary: Denies: Dysuria Musculoskeletal: Denies: Joint Pain, Joint Tenderness Skin: Reports: - - Right barone scab, erythema right barone extending to below the knee and on right ankle. Neurological: Denies: Numbness, Tingling, Focal weakness Psychiatric: Reports: Anxiety Hematologic/ Lymphatic: Reports: Adenopathy VTE Information - Inpt Only VTE Present on Admission: No VTE Mechan Device Prophylaxis: None VTE Pharm Prophylaxis ordered?: Yes Patient Problems: Active and Suspected Problems Cellulitis of right leg without foot (Acute) - Physical Exam General: Alert, Oriented x3, Cooperative HEENT: Atraumatic, PERRLA, EOMI, Normocephalic, - - Hearing aid devices intact. Neck: Supple, No JVD, Negative Carotid Bruits Lungs: Clear to auscultation, Normal air movement Cardiovascular: Regular rate, Regular Rhythm, Normal S1, Normal S2, No murmurs Abdomen: Bowel Sounds Present, Soft, Non Tender, Non-Distended Extremities: No clubbing, No cyanosis, No edema, Capillary Refill Less than 3 Seconds Skin: - - Right lower extremity erythema, warmth. Small barone scab. No angina or abscess noted. Musculoskeletal: No Tenderness to Palpation of Joints or Extremities Neurological: Cranial nerves II-XII grossly intact, Neuro grossly intact Psych/Mental Status: Normal Affect, Appropriate Vital Signs Temp Pulse Resp BP Pulse Ox 100.4 F H 98 14 129/78 H 97 06/05/18 13:19 06/05/18 13:19 06/05/18 13:19 06/05/18 13:19 06/05/18 13:19 Oxygen Delivery Method Room Air Weight: 234 lb 12.677 oz Body Mass Index (BMI) 32.7 Laboratory Tests Past 24 Hrs 06/05/18 06/05/18 06/05/18 14:33 14:33 14:33 WBC 12.1 H RBC 5.13 Hgb 15.8 Hct 45.6 MCV 88.9 MCH 30.8 MCHC 34.6 RDW 12.8 RDW Differential 41.1 Plt Count 234 MPV 9.5 Immature Gran % (Auto) 0.200 Neut % (Auto) 77.8 H Lymph % (Auto) 13.6 L [place] % (Auto) 7.5 Eos % (Auto) 0.7 Baso % (Auto) 0.2 Absolute Neuts (auto) 9.4 H Absolute Lymphs (auto) 1.64 Total Counted Not Reportable Sodium 139 Potassium 3.9 Chloride 106 Carbon Dioxide 25.0 Anion Gap 8 BUN 11 Creatinine 1.20 Estim Creat Clear Calc 88.02 Est GFR (MDRD) Af Amer 86 Est GFR (MDRD) Non-Af 71 BUN/Creatinine Ratio 9.2 L Glucose 99 Lactic Acid 1.1 Calcium 9.2 Assessment/Plan All Active Problems Cellulitis of right leg without foot (Acute) H. pylori infection (Resolved) 1. Acute right lower extremity cellulitis-failed outpatient antibiotic therapy with Keflex and Bactrim. Begin IV cefazolin. PRN pain regimen. Obtain duplex ultrasound right lower extremity. Elevate right lower extremity. Obtain MRSA PCR. Blood cultures drawn in ER, pending. 2. DL-continue CPAP nightly. 3. GERD-continue home omeprazole regimen. 4. Anxiety-continue home Wellbutrin regimen. DVT prophylaxis- Lovenox sc This patient was seen by VIKTOR Childs under the supervision of Dr. Vallejo.
--- NOTE | 2018-06-05 16:46 | VDLE_ITS ---
Reason For Study: LEG PAIN RIGHT LEFT GSV is normal. CFV is compressible, spontaneous, phasic, CFV is compressible, spontaneous, phasic, competent, and demonstrates normal competent and demonstrates normal augmentation. augmentation. FV is compressible, spontaneous, phasic, competent and demonstrates normal augmentation. POP V is compressible, spontaneous, phasic, competent and demonstrates normal augmentation. T/P Trunk is compressible. PTV is compressible. RT PerV is compressible. Procedure Exam performed portable in patient room. A preliminary report was called and/or faxed to MS-2 nurse. Interpretation Summary There is no evidence of right lower extremity deep vein thrombosis. Right greater saphenous vein appears patent and compressible segmentally. Normal flow patterns left common femoral vein. Ordering Physician: Tracy Vallejo Referring Physician: Bruno Tim Performed By: Corina Ribeiro RVT
[2018-06-05 16:47] VITALS: BMI 32.4
[2018-06-05 16:52] VITALS: BMI 32.5
[2018-06-05 17:11] VITALS: BP 124/79; PULSE 86; RESP 18; TEMP 36.8; O2SAT 99
[2018-06-05] MEDS: Enoxaparin 100 MG/ML Syringe SC (17:28)
[2018-06-05] MEDS: 0.9% Normal Saline 1,000 ML 100 ML IV (17:28)
[2018-06-05] MEDS: Acetaminophen 325 MG Tablet 650 MG PO (17:38)
[2018-06-05] MEDS: busPIRone 5 MG Tablet 10 MG PO (21:09)
[2018-06-05] MEDS: Cefazolin 1 GM/50 ML BAG IV (21:09)
[2018-06-05 21:19] VITALS: BP 118/76; PULSE 77; RESP 16; TEMP 37.2; O2SAT 98
[2018-06-05] MEDS: Pantoprazole Sodium 40 MG Tablet PO (21:42)
[2018-06-06] MEDS: 0.9% Normal Saline 1,000 ML 100 ML IV ×2 (03:07→17:56)
[2018-06-06 03:12] VITALS: BP 119/77; PULSE 71; RESP 16; TEMP 37.2; O2SAT 99
[2018-06-06] MEDS: Acetaminophen 325 MG Tablet 650 MG PO ×3 (06:07→21:38)
[2018-06-06] MEDS: Cefazolin 1 GM/50 ML BAG IV ×3 (06:08→21:38)
[2018-06-06] MEDS: busPIRone 5 MG Tablet 10 MG PO ×3 (06:08→21:39)
[2018-06-06 07:10] LABS: Absolute Lymphocyte Count 1.51 X10^3/ul (0.83-4.51); Absolute Neutrophil Count 5.5 X10^3/uL (2.0-7.7); Basophil# 0.01 X10^3/uL; Basophil% 0.1 % (0-1); Eosinophil# 0.23 X10^3/uL; Eosinophils% 2.8 % (0-5); Hematocrit 43.5 % (40-54); Hemoglobin 15.2 g/dl (13.0-16.5); Lymphocyte # 1.51 X10^3/ul (4.0); Lymphocyte % 18.6 % (19-41); Mean Corp Hgb Conc 34.9 g/gl (32-36); Mean Corpuscular Hgb 30.7 pg (27.0-32.0); Mean Corpuscular Volume 87.9 fL (80-94); Mean Platelet Vol. 9.5 fl (6.2-12.0); Monocyte# 0.84 X10^3/uL; Monocyte% 10.4 % (0-10); Neutrophil # 5.49 X10^3/uL (2.7-7.7); Neutrophil % 67.9 % (47-70); Platelet Count 217 K/mm3 (150-450); RBC Distribution Width CV 12.7 % (11.6-14.6); RBC Distribution Width SD 40.5 fl (35.1-43.9); Red Blood Count 4.95 M/mm3 (4.6-6.2); White Blood Count 8.1 K/mm3 (4.4-11.0)
[2018-06-06 07:11] LABS: POSITIVE COUNT NO; POSITIVE DIFFERENTIAL NO; POSITIVE MORPHOLOGY NO
[2018-06-06 07:26] LABS: Anion Gap 5 (5-15); BUN 8 mg/dL (7-18); BUN/Creat Ratio 7.4 RATIO (10-20); Calcium,Total 8.4 mg/dL (8.5-10.1); Chloride 109 mmol/L (98-107); Creatinine, Serum 1.08 mg/dL (0.70-1.30); EST Glomerular Filtration Rate 81 mL/min (>60); Est Glom Filt Rate - Afr Amer 97 mL/min (>60); Glucose 103 mg/dL (74-106); Potassium 3.9 mmol/L (3.5-5.1); Sodium Level 141 mmol/L (136-145)
--- NOTE | 2018-06-06 07:44 | PCM.PN.HOSP ---
Patient Problems: Active and Suspected Problems Cellulitis of right leg without foot (Acute) Sepsis (Acute) Subjective: Patient is a 37-year-old gentleman who presented with erythema and warmth with swelling involving the right lower leg. An assessment of acute cellulitis made admitted to the hospital for inpatient management. Patient apparently being managed with Keflex and Bactrim as outpatient without much improvement. Objective: GENERAL: cooperative HEENT: Atraumatic; moist oral mucosa EYES; Anicteric, Normal Conjunctiva NECK; supple, normal thyroid, no distended JVD. RESPIRATORY: Diminished to auscultation bilaterally, CARDIOVASCULAR: Regular S1 S2, no audible murmurs GI: soft, non-tender, normoactive bowel sounds, : No Renal angle tenderness; EXTREMITIES: No edema, no clubbing, no cyanosis. MUSCULOSKELETAL: No Joint Tenderness; no muscle waisting NEURO: Awake; no lateralizing signs. SKIN: Area of induration just below the right knee with surrounding erythema and warmth PSYCH; Normal affect Vitals/I&O's: Vital Signs Temp Pulse Resp BP Pulse Ox 99.0 F 71 16 119/77 99 06/06/18 03:12 06/06/18 03:12 06/06/18 03:12 06/06/18 03:12 06/06/18 03:12 Oxygen Delivery Method CPAP Weight: 105.6 kg Body Mass Index (BMI) 32.4 Intake and Output for Last 24 Hours 06/04/18 06/05/18 06/06/18 23:59 23:59 23:59 Intake Total 607 / 607 657 / 657 Output Total 1750 / 1750 Balance 607 / 607 -1093 / -1093 Laboratory Results 06/05/18 14:33: WBC 12.1 H, RBC 5.13, Hgb 15.8, Hct 45.6, MCV 88.9, MCH 30.8, MCHC 34.6, RDW 12.8, RDW Differential 41.1, Plt Count 234, MPV 9.5, Immature Gran % (Auto) 0.200, Neut % (Auto) 77.8 H, Lymph % (Auto) 13.6 L, [place] % (Auto) 7.5, Eos % (Auto) 0.7, Baso % (Auto) 0.2, Absolute Neuts (auto) 9.4 H, Absolute Lymphs (auto) 1.64, Total Counted Not Reportable 06/05/18 14:33: Sodium 139, Potassium 3.9, Chloride 106, Carbon Dioxide 25.0, Anion Gap 8, BUN 11, Creatinine 1.20, Estim Creat Clear Calc 88.02, Est GFR (MDRD) Af Amer 86, Est GFR (MDRD) Non-Af 71, BUN/Creatinine Ratio 9.2 L, Glucose 99, Calcium 9.2 06/05/18 14:33: Lactic Acid 1.1 06/06/18 06:43: WBC 8.1, RBC 4.95, Hgb 15.2, Hct 43.5, MCV 87.9, MCH 30.7, MCHC 34.9, RDW 12.7, RDW Differential 40.5, Plt Count 217, MPV 9.5, Immature Gran % (Auto) 0.200, Neut % (Auto) 67.9, Lymph % (Auto) 18.6 L, [place] % (Auto) 10.4 H, Eos % (Auto) 2.8, Baso % (Auto) 0.1, Absolute Neuts (auto) 5.5, Absolute Lymphs (auto) 1.51, Total Counted Not Reportable 06/06/18 06:43: Sodium 141, Potassium 3.9, Chloride 109 H, Carbon Dioxide 27.0, Anion Gap 5, BUN 8, Creatinine 1.08, Estim Creat Clear Calc 97.80, Est GFR (MDRD) Af Amer 97, Est GFR (MDRD) Non-Af 81, BUN/Creatinine Ratio 7.4 L, Glucose 103, Calcium 8.4 L Current Medications Acetaminophen (Tylenol) 650 mg PO Q6H PRN PRN PRN Reason: Non-cardiac pain (mod-severe) Last Admin: 06/06/18 06:07 Dose: 650 mg Hydrocodone Bitart/Acetaminophen ([place] 5mg-325mg) 1 - 2 tablet PO Q6H PRN PRN PRN Reason: MOD-SEVERE PAIN (4-10/10) Al Hydroxide/Mg Hydroxide (Mylanta Ii) 15 - 30 ml PO Q4H PRN PRN PRN Reason: INDIGESTION Albuterol Sulfate (Ventolin Aerosols) 2.5 mg INHALATION Q2H PRN PRN PRN Reason: dyspnea, wheezing Buspirone HCl (Buspar) 10 mg PO TID [facility] Last Admin: 06/06/18 06:08 Dose: 10 mg Dextrose (D50w Syringe) 0 gm IV X1 PRN; Protocol PRN Reason: Hypoglycemia Enoxaparin Sodium (Lovenox) 100 mg SC BID [facility] Last Admin: 06/05/18 17:28 Dose: 100 mg Glucagon () 1 mg IM .X1 PRN PRN Reason: Hypoglycemia Hydralazine HCl (Apresoline Iv) 10 mg IV Q4H PRN PRN PRN Reason: SBP > 160 Sodium Chloride () 1,000 mls @ 100 mls/hr IV .Q10H [facility] Last Admin: 06/06/18 03:07 Dose: 100 mls/hr Cefazolin Sodium () 1 gm in 50 mls @ 150 mls/hr IV Q8 [facility] Last Admin: 06/06/18 06:08 Dose: 150 mls/hr Morphine Sulfate () 1 - 2 mg IV Q4H PRN PRN PRN Reason: PAIN Pantoprazole Sodium (Protonix) 40 mg PO BID [facility] Last Admin: 06/05/18 21:42 Dose: 40 mg Sodium Chloride () 5 - 15 ml IV UD PRN PRN Reason: SALINE FLUSH Medical Necessity - Tobacco Use Smoking Status: Former smoker Tobacco Use: Cigarettes Assessment/Plan All Active Problems Cellulitis of right leg without foot (Acute) Sepsis (Acute) H. pylori infection (Resolved) Patient is a 37-year-old gentleman who presented with erythema and warmth with swelling involving the right lower leg. An assessment of acute cellulitis made admitted to the hospital for inpatient management. Patient apparently being managed with Keflex and Bactrim as outpatient without much improvement. 1. Acute right lower extremity cellulitis patient apparently did fail outpatient treatment the patient was started on cefazolin on admission, with the patient having evidence of some purulence Comycin was added to his therapy 2. Obstructive sleep apnea patient is on CPAP at night 3. GERD patient is on omeprazole 4. Obesity with BMI of 32.5 weight loss advised 5. Anxiety disorder.patient is on Wellbutrin did continue 6. DVT prophylaxis SC Lovenox Code Visit Inpatient E&M: 22099 [facility] Hosp L3
[2018-06-06 08:15] VITALS: BP 121/82; PULSE 70; RESP 20; TEMP 36.6; O2SAT 98
--- NOTE | 2018-06-06 08:19 | NURSING ---
Dr. Alexander confirmed that order from Dr. Vallejo for US to right lower ext. is indeed to rule out DVT. This RN texted RN electronics supervisor to notify of order for US to rule out DVT.
[2018-06-06] MEDS: Pantoprazole Sodium 40 MG Tablet PO ×2 (09:47→21:40)
[2018-06-06] MEDS: Enoxaparin 100 MG/ML Syringe SC (09:48)
--- NOTE | 2018-06-06 10:08 | CM.UR ---
RN CM Assessment Introduced role of RN CM to patient and Josh at bedside.? Patient is alert, oriented and able?to participate in RN CM Assessment. ?Care providers, pharmacy, and demographics verified. Presentation: Bit by something on right leg. developed cellulitis. Failed OP treatment. Barriers/Issues: None PCP: Glenroy Dalton Pharmacy: [facility] Insurance: [employer] Rx Benefit:?Yes LNOK: Ailin ADL?s: Independent with ambulation and ADL's Transportation: Patient drives DME: None HHC: None SNF: None Goal: Home DC PLAN: Home. Denies any needs at this time. Case management will remain available should any needs arise. Maru Anderson RN, CCM.
--- NOTE | 2018-06-06 11:07 | PCM.RX.CS ---
Consult Pharmacy has been consulted to manage selected antiobiotic: Vancomycin Type of Consult: New start Suspected Infection: Sepsis, Skin/Soft tissue Labs: Sodium 141 mmol/L (136-145) 06/06/18 06:43 Potassium 3.9 mmol/L (3.5-5.1) 06/06/18 06:43 Chloride 109 mmol/L (98-107) H 06/06/18 06:43 Carbon Dioxide 27.0 mmol/L (21.0-32.0) 06/06/18 06:43 Anion Gap 5 (5-15) 06/06/18 06:43 BUN 8 mg/dL (7-18) 06/06/18 06:43 Creatinine 1.08 mg/dL (0.70-1.30) 06/06/18 06:43 Est GFR (MDRD) Af Amer 97 mL/min (>60) 06/06/18 06:43 Est GFR (MDRD) Non-Af 81 mL/min (>60) 06/06/18 06:43 BUN/Creatinine Ratio 7.4 RATIO (10-20) L 06/06/18 06:43 Glucose 103 mg/dL (74-106) 06/06/18 06:43 Weight used for dosin.6 kg Estimated Creatinine Clearance: 98 ML/MIN Goal Trough: 10-15 mcg/mL Pharmacy Plan for Drug Dosing: Per the [facility] Pharmacist-Managed Dosing Protocol, start with initial standard dose of 1500mg IV x1, then continue with 1500mg IV q12h. Draw a vancomycin trough before the 4th dose. Pharmacy Service will continue to monitor and adjust dosing as required. Follow-Up Labs: Trough Vancomycin Labs to be done on [date and time ordered]: 06/07/18 21:30
--- NOTE | 2018-06-06 11:11 | PHA.PHARE_ITS ---
Consult Pharmacy has been consulted to manage selected antiobiotic: Vancomycin Type of Consult: New start Suspected Infection: Sepsis, Skin/Soft tissue Labs: Sodium 141 mmol/L (136-145) 06/06/18 06:43 Potassium 3.9 mmol/L (3.5-5.1) 06/06/18 06:43 Chloride 109 mmol/L (98-107) H 06/06/18 06:43 Carbon Dioxide 27.0 mmol/L (21.0-32.0) 06/06/18 06:43 Anion Gap 5 (5-15) 06/06/18 06:43 BUN 8 mg/dL (7-18) 06/06/18 06:43 Creatinine 1.08 mg/dL (0.70-1.30) 06/06/18 06:43 Est GFR (MDRD) Af Amer 97 mL/min (>60) 06/06/18 06:43 Est GFR (MDRD) Non-Af 81 mL/min (>60) 06/06/18 06:43 BUN/Creatinine Ratio 7.4 RATIO (10-20) L 06/06/18 06:43 Glucose 103 mg/dL (74-106) 06/06/18 06:43 Weight used for dosin.6 kg Estimated Creatinine Clearance: 98 ML/MIN Goal Trough: 10-15 mcg/mL Pharmacy Plan for Drug Dosing: Per the [facility] Pharmacist-Managed Dosing Protocol, start with initial standard dose of 1500mg IV x1, then continue with 1500mg IV q12h. Draw a vancomycin trough before the 4th dose. Pharmacy Service will continue to monitor and adjust dosing as required. Follow-Up Labs: Trough Vancomycin Labs to be done on [date and time ordered]: 06/07/18 21:30
[2018-06-06 14:15] VITALS: BP 120/79; PULSE 78; RESP 20; TEMP 37.6; O2SAT 98
[2018-06-06] MEDS: 0.9% NaCl Peripheral Flush Adult/Peds IV (14:20)
[2018-06-06 15:41] VITALS: PULSE 78
[2018-06-06 21:34] VITALS: BP 126/78; PULSE 68; RESP 16; TEMP 36.8; O2SAT 98
[2018-06-07 04:23] VITALS: BP 126/87; PULSE 66; RESP 16; TEMP 36.8; O2SAT 98
[2018-06-07] MEDS: Cefazolin 1 GM/50 ML BAG IV (05:23)
[2018-06-07] MEDS: 0.9% Normal Saline 1,000 ML 100 ML IV ×2 (05:23→21:33)
[2018-06-07] MEDS: busPIRone 5 MG Tablet 10 MG PO ×3 (05:24→21:45)
[2018-06-07] MEDS: Acetaminophen 325 MG Tablet 650 MG PO ×2 (06:53→21:32)
--- NOTE | 2018-06-07 07:16 | PN_ITS ---
Patient Problems: Active and Suspected Problems Cellulitis of right leg without foot (Acute) Sepsis (Acute) Subjective: Patient seen complains of pain on ambulating. Patient appears to have a well- circumscribed area of induration on the anterior tibia. Did adjust patient antibiotics. Also order CT of the right lower extremity to confirm the suspicion of an abscess. Consultation placed to general surgery for possible I&D Objective: GENERAL: cooperative HEENT: Atraumatic; moist oral mucosa EYES; Anicteric, Normal Conjunctiva NECK; supple, normal thyroid, no distended JVD. RESPIRATORY: Diminished to auscultation bilaterally, CARDIOVASCULAR: Regular S1 S2, no audible murmurs GI: soft, non-tender, normoactive bowel sounds, : No Renal angle tenderness; EXTREMITIES: No edema, no clubbing, no cyanosis. MUSCULOSKELETAL: No Joint Tenderness; no muscle waisting NEURO: Awake; no lateralizing signs. SKIN: Area of induration just below the right knee with surrounding erythema and warmth PSYCH; Normal affect Vitals/I&O's: Vital Signs Temp Pulse Resp BP Pulse Ox 98.2 F 66 16 126/87 H 98 06/07/18 04:23 06/07/18 04:23 06/07/18 04:23 06/07/18 04:23 06/07/18 04:23 Oxygen Delivery Method Room Air Weight: 105.6 kg Body Mass Index (BMI) 32.4 Intake and Output for Last 24 Hours 06/05/18 06/06/18 06/07/18 23:59 23:59 23:59 Intake Total 607 / 607 3682 / 3682 1092 / 1092 Output Total 3925 / 3925 800 / 800 Balance 607 / 607 -243 / -243 292 / 292 Laboratory Results 06/06/18 06:43: Sodium 141, Potassium 3.9, Chloride 109 H, Carbon Dioxide 27.0, Anion Gap 5, BUN 8, Creatinine 1.08, Estim Creat Clear Calc 97.80, Est GFR (MDRD) Af Amer 97, Est GFR (MDRD) Non-Af 81, BUN/Creatinine Ratio 7.4 L, Glucose 103, Calcium 8.4 L 06/07/18 06:33: WBC Pending, RBC Pending, Hgb Pending, Hct Pending, MCV Pending, MCH Pending, MCHC Pending, RDW Pending, RDW Differential Pending, Plt Count Pending, Neut % (Auto) Pending, Absolute Neuts (auto) Pending, Total Counted Pending 06/07/18 06:33: Sodium Pending, Potassium Pending, Chloride Pending, Carbon Dioxide Pending, Anion Gap Pending, BUN Pending, Creatinine Pending, Est GFR (MDRD) Af Amer Pending, Est GFR (MDRD) Non-Af Pending, BUN/Creatinine Ratio Pending, Glucose Pending, Calcium Pending, Magnesium Pending Current Medications Acetaminophen (Tylenol) 650 mg PO Q6H PRN PRN PRN Reason: Non-cardiac pain (mod-severe) Last Admin: 06/07/18 06:53 Dose: 650 mg Hydrocodone Bitart/Acetaminophen ([place] 5mg-325mg) 1 - 2 tablet PO Q6H PRN PRN PRN Reason: MOD-SEVERE PAIN (4-10/10) Al Hydroxide/Mg Hydroxide (Mylanta Ii) 15 - 30 ml PO Q4H PRN PRN PRN Reason: INDIGESTION Albuterol Sulfate (Ventolin Aerosols) 2.5 mg INHALATION Q2H PRN PRN PRN Reason: dyspnea, wheezing Buspirone HCl (Buspar) 10 mg PO TID [facility] Last Admin: 06/07/18 05:24 Dose: 10 mg Dextrose (D50w Syringe) 0 gm IV X1 PRN; Protocol PRN Reason: Hypoglycemia Enoxaparin Sodium (Lovenox) 100 mg SC BID [facility] Last Admin: 06/06/18 21:43 Dose: Not Given Glucagon () 1 mg IM .X1 PRN PRN Reason: Hypoglycemia Hydralazine HCl (Apresoline Iv) 10 mg IV Q4H PRN PRN PRN Reason: SBP > 160 Sodium Chloride () 1,000 mls @ 100 mls/hr IV .Q10H [facility] Last Admin: 06/07/18 05:23 Dose: 100 mls/hr Cefazolin Sodium () 1 gm in 50 mls @ 150 mls/hr IV Q8 [facility] Last Admin: 06/07/18 05:23 Dose: 150 mls/hr Vancomycin IV Pharmacy to Dose (1 ea/ Sodium Chloride) 500 mls @ 250 mls/hr IV X1 PRN; Protocol PRN Reason: Rx to Dose Vancomycin HCl 1,500 mg/ (Sodium Chloride) 530 mls @ 250 mls/hr IV Q12H NOEL Last Admin: 06/06/18 22:58 Dose: 250 mls/hr Morphine Sulfate () 1 - 2 mg IV Q4H PRN PRN PRN Reason: PAIN Pantoprazole Sodium (Protonix) 40 mg PO BID NOEL Last Admin: 06/06/18 21:40 Dose: 40 mg Sodium Chloride () 5 - 15 ml IV UD PRN PRN Reason: SALINE FLUSH Last Admin: 06/06/18 14:20 Dose: 10 ml Medical Necessity - Tobacco Use Smoking Status: Former smoker Tobacco Use: Cigarettes Assessment/Plan All Active Problems Cellulitis of right leg without foot (Acute) Sepsis (Acute) H. pylori infection (Resolved) Patient is a 37-year-old gentleman who presented with erythema and warmth with swelling involving the right lower leg. An assessment of acute cellulitis made admitted to the hospital for inpatient management. Patient apparently being managed with Keflex and Bactrim as outpatient without much improvement. 1. Acute right lower extremity cellulitis patient apparently did fail outpatient treatment the patient was started on cefazolin on admission, with the patient having evidence of some purulence; vancomycin added to therapy 06/07 18 patient appears to have a well-circumscribed area of induration on the anterior tibia. Did adjust patient antibiotics: Discontinued cefazolin, added to Zosyn and clindamycin. Also order CT of the right lower extremity to confirm the suspicion of an abscess. Consultation placed to general surgery Dr. Lezama for possible I&D 2. Obstructive sleep apnea patient is on CPAP at night 3. GERD patient is on omeprazole 4. Obesity with BMI of 32.5 weight loss advised 5. Anxiety disorder.patient is on Wellbutrin did continue 6. DVT prophylaxis SC Lovenox Code Visit Inpatient E&M: 08537 [facility] Hosp L3
[2018-06-07 07:32] LABS: Absolute Lymphocyte Count 1.28 X10^3/ul (0.83-4.51); Absolute Neutrophil Count 5.8 X10^3/uL (2.0-7.7); Basophil# 0.02 X10^3/uL; Basophil% 0.2 % (0-1); Eosinophils% 3.7 % (0-5); Hematocrit 43.9 % (40-54); Hemoglobin 14.9 g/dl (13.0-16.5); Lymphocyte # 1.28 X10^3/ul (4.0); Lymphocyte % 15.7 % (19-41); Mean Corp Hgb Conc 33.9 g/gl (32-36); Mean Corpuscular Hgb 30.4 pg (27.0-32.0); Mean Corpuscular Volume 89.6 fL (80-94); Mean Platelet Vol. 9.9 fl (6.2-12.0); Monocyte# 0.75 X10^3/uL; Monocyte% 9.2 % (0-10); Platelet Count 203 K/mm3 (150-450); RBC Distribution Width CV 12.7 % (11.6-14.6); RBC Distribution Width SD 41.1 fl (35.1-43.9); White Blood Count 8.2 K/mm3 (4.4-11.0)
[2018-06-07 07:41] LABS: POSITIVE COUNT NO; POSITIVE DIFFERENTIAL NO; POSITIVE MORPHOLOGY NO
--- NOTE | 2018-06-07 08:02 | CT_ITS ---
STUDY: LOWER EXTREMITY WITH CONTRAST RIGHT RIGHT REASON FOR EXAM: Male, 37 years old. Rule out abscess no further history is provided. RADIATION DOSAGE (If Supplied By Facility): CTDIvol = ( 15.35 ) mGy, DLP = ( 699.16 ) mGycm. Individualized dose optimization techniques were used for this CT.? TECHNIQUE: Multiple axial images of the right lower extremity were obtained from the distal femur through the distal one third shaft of the tibia. Sagittal coronal reformatted images were performed. 100 mL of Isovue-300 was administered IV. COMPARISON: None. FINDINGS: There is a trace joint effusion. There is mild arthrosis of the mediolateral and patellofemoral compartments. There is a slightly widened appearance of the medial side of the patellofemoral compartment suggesting patellar retinaculum laxity. There is focal skin thickening within the anterior aspect of the knee with superficial edema essentially overlying the level of the tibial tuberosity without a definitive focal performed abscess. There is skin thickening along this area and soft tissue edema throughout the peripheral soft tissues and fat. There is no visualized bony lesion or fracture. CT/Extremity Lower WITH Contrast IMPRESSION: Things are most consistent with cellulitis overlying the tibial tuberosity. No definitive evidence of abscess. There is a trace joint effusion and degenerative change within the knee joint as detailed above. There is likely laxity or prior injury of the medial patellar retinaculum. Electronically Signed: Gladys Conley MD at 8:54 EDT Tel , Service support ,
[2018-06-07 08:05] LABS: Anion Gap 6 (5-15); BUN 12 mg/dL (7-18); BUN/Creat Ratio 13.1 RATIO (10-20); Calcium,Total 8.5 mg/dL (8.5-10.1); Chloride 111 mmol/L (98-107); Creatinine, Serum 0.92 mg/dL (0.70-1.30); EST Glomerular Filtration Rate 97 mL/min (>60); Est Glom Filt Rate - Afr Amer 118 mL/min (>60); Estimated Creatinine Clearance 114.81 ml/min; Glucose 117 mg/dL (74-106); Magnesium 2.1 mg/dL (1.6-2.6); Potassium 3.9 mmol/L (3.5-5.1); Sodium Level 142 mmol/L (136-145)
[2018-06-07 08:21] VITALS: BP 124/84; PULSE 66; RESP 20; TEMP 37.1; O2SAT 98
--- NOTE | 2018-06-07 08:26 | PCM.CONS.GEN ---
Reason for Consult Date of Consultation: 06/07/18 History of Present Illness: The patient is a 37 year old M presented to ER due to RLE cellulitis. Pt states it started about 4 days ago unsure if he bumped his leg on anything or if it was a bug bite. Patient came to the ER 06/04/2018 was given p.o. antibiotics and sent home and told to return if it worsened. Patient states that on Friday it seemed like the erythema was worsened and he had a lot of pain in the lower leg. Pt was admitting 06/05/18 and on Ancef IV initially then vancomycin was added yesterday and ancef changed to zosyn and vancomycin today. Pt still has some erythema over right anterior barone, pt states he had a small about of purulent material drain yesterday when the scab came off, no further drainage today. Past Medical History Past Medical History (Chronic Problems): Chronic Problems GERD with esophagitis (Chronic) Allergies calamine Allergy (Verified 06/05/18 13:24) Swelling codeine Allergy (Verified 06/05/18 13:24) Hives perphenazine Allergy (Verified 06/05/18 13:24) Swelling rizatriptan Allergy (Verified 06/05/18 13:24) Anaphylaxis topiramate Allergy (Verified 06/05/18 13:24) Anaphylaxis morphine Adverse Reaction (Verified 06/05/18 13:24) Nausea/Vom/Diarrhea ENVIRONMENTAL Allergy (Uncoded 06/05/18 13:24) Itching Home Medications: Ambulatory Orders Medication Instructions Recorded Omeprazole [Prilosec] 40 mg PO BID 03/08/13 Epi Pen (for allergic rxn) [Epi 0.3 mg IM X1 PRN 08/22/14 Pen] busPIRone [Buspar] 10 mg PO TID 06/05/18 Surgical History: - - Right foot surgery. Psychiatric History: Anxiety Lives: Spouse/ Significant Other Smoking Status: Former smoker Tobacco Use: Cigarettes Alcohol: None Drugs: None - *Family History Maternal History Items: Diabetes, Heart Disease, Hypertension, - - Mini stroke Paternal History Items: - - Father estranged, denies known paternal medical history. Review of Systems Constitutional: Denies: Anorexia Cardiovascular: Denies: Chest Pain Respiratory: Denies: Shortness of Breath Gastrointestinal: Denies: Abdominal Pain Musculoskeletal: Reports: Leg Pain - right lower Skin: Reports: Wounds - and erythema right barone Neurological: Denies: Balance problems Hematologic/ Lymphatic: Denies: Easy Bruising Patient Problems: Active and Suspected Problems Cellulitis of right leg without foot (Acute) Sepsis (Acute) - Physical Exam General: Alert, Oriented x3, Cooperative, No apparent distress HEENT: Atraumatic Lungs: Normal air movement Cardiovascular: Regular rate Abdomen: Soft Extremities: - - right anterior prox barone- 5x5cm area of erythema, small scab in middle, no obvious fluctuance as it is over the tibia. Skin: - - erythema 5x5cm on anterior barone, small scab no current drainage Vital Signs Temp Pulse Resp BP Pulse Ox 98.7 F 66 20 H 124/84 H 98 06/07/18 08:21 06/07/18 08:21 06/07/18 08:21 06/07/18 08:21 06/07/18 08:21 Oxygen Delivery Method Room Air Weight: 232 lb 12.93 oz Body Mass Index (BMI) 32.4 Intake and Output for Last 24 Hours 06/05/18 06/06/18 06/07/18 23:59 23:59 23:59 Intake Total 607 / 607 3682 / 3682 1092 / 1092 Output Total 3925 / 3925 800 / 800 Balance 607 / 607 -243 / -243 292 / 292 Laboratory Tests Past 24 Hrs 06/07/18 06/07/18 06:33 06:33 WBC 8.2 RBC 4.90 Hgb 14.9 Hct 43.9 MCV 89.6 MCH 30.4 MCHC 33.9 RDW 12.7 RDW Differential 41.1 Plt Count 203 MPV 9.9 Immature Gran % (Auto) 0.200 Neut % (Auto) 71.0 H Lymph % (Auto) 15.7 L [place] % (Auto) 9.2 Eos % (Auto) 3.7 Baso % (Auto) 0.2 Absolute Neuts (auto) 5.8 Absolute Lymphs (auto) 1.28 Total Counted Not Reportable Sodium 142 Potassium 3.9 Chloride 111 H Carbon Dioxide 25.0 Anion Gap 6 BUN 12 Creatinine 0.92 Estim Creat Clear Calc 114.81 Est GFR (MDRD) Af Amer 118 Est GFR (MDRD) Non-Af 97 BUN/Creatinine Ratio 13.1 Glucose 117 H Calcium 8.5 Magnesium 2.1 Assessment/Plan All Active Problems Cellulitis of right leg without foot (Acute) Sepsis (Acute) H. pylori infection (Resolved) 37 y/o M with cellulitis to R anterior barone 1. Discussed with patient that did not see any large fluid collection on CT. Region is still pending. Discussed with patient that I could do a small I&D the over the area of the scab to see if this helps at all with the erythema or any drainage. Discussed patient he could possibly need additional I&D in the future. Discussed risk and benefits including but not limited to bleeding, further infection patient was agreeable to proceed with I&D. Patient currently on Zosyn, Clinda, vancomycin IV. Bianca Rojas M.D. Pager: [phone] [facility] [address] [place] [address], [address] [place] [address] Office: [phone]
[2018-06-07] MEDS: 0.9% NaCl Peripheral Flush Adult/Peds IV (09:20)
--- NOTE | 2018-06-07 09:25 | PCM.OPRPT ---
Report of Operation Date of Procedure: 06/07/18 Pre-Operative Diagnosis: Right anterior barone cellulitis/abscess Post-Operative Diagnosis: Same Surgery/Procedure Performed:: Incision and drainage of right anterior barone abscess Type of Anesthesia:: Local Specimen's removed: Cultures obtained anaerobic and aerobic Estimated Blood Loss (mL): Minimal Description of Procedure: After consent was obtained. The right anterior barone prepped and draped in usual sterile fashion with Betadine. Local anesthesia of lidocaine 1% with epinephrine was used a total of 3 cc. A cruciate incision was made with 11 blade scalpel at the previous area of scab. Hemostat was used to try to explore the wound. Only a small amount of purulent material was able to be expressed. Wound culture was taken for anaerobic and aerobic. Wound was irrigated with saline. A small skin bleeder was stopped using an electric Bovie. Wound was dressed by with 2 x 2 and tape. Patient tolerated procedure well. - Complications none
--- NOTE | 2018-06-07 09:27 | NURSING ---
0915 Dr Rojas into do I/D of area on RT lower leg. noted some purulent drainage, pt tolerated well. dot applied. Junie Hatfield RN
--- NOTE | 2018-06-07 10:04 | NURSING ---
Sent text at 0820 to RN insulation supervisor requesting minor surgical tray within 45min-1hr and entered order to pharmacy for lidocaine/epi per order. Pt sent to CT around that time per Dr. Alexander's order. Dr. Rojas updated on pt leaving unit via cortext. Consent printed and pt signed- Dr. Rojas up to unit to completed I&D right leg. Order entered for culture and culture then sent to pharmacy. New order for dressing changes completed per Dr. Rojas order.
[2018-06-07] MEDS: Enoxaparin 100 MG/ML Syringe SC (10:07)
[2018-06-07] MEDS: Pantoprazole Sodium 40 MG Tablet PO ×2 (10:07→21:45)
--- NOTE | 2018-06-07 10:08 | NURSING ---
This RN called Cali in pharmacy and was notified that Extended Zosyn and Vancomycin cannot be infused together. Will initiate 2nd IV for IV therapy ordered.
--- NOTE | 2018-06-07 11:10 | NURSING ---
Vancomycin to be hung late due to difficulty inserting a 2nd IV.
[2018-06-07 14:10] VITALS: BP 126/79; PULSE 73; RESP 20; TEMP 36.6; O2SAT 99
[2018-06-07 16:31] VITALS: PULSE 73
[2018-06-07 20:02] VITALS: BP 126/84; PULSE 75; RESP 18; TEMP 36.5; O2SAT 97
[2018-06-07 22:51] LABS: Vancomycin, Trough Level 7.9 ug/mL (5.0-15.0)
--- NOTE | 2018-06-08 03:41 | PCM.RX.CS ---
Consult Pharmacy has been consulted to manage selected antiobiotic: Vancomycin Type of Consult: Follow-up Suspected Infection: Sepsis, Skin/Soft tissue Labs: Sodium 142 mmol/L (136-145) 06/07/18 06:33 Potassium 3.9 mmol/L (3.5-5.1) 06/07/18 06:33 Chloride 111 mmol/L (98-107) H 06/07/18 06:33 Carbon Dioxide 25.0 mmol/L (21.0-32.0) 06/07/18 06:33 Anion Gap 6 (5-15) 06/07/18 06:33 BUN 12 mg/dL (7-18) 06/07/18 06:33 Creatinine 0.92 mg/dL (0.70-1.30) 06/07/18 06:33 Est GFR (MDRD) Af Amer 118 mL/min (>60) 06/07/18 06:33 Est GFR (MDRD) Non-Af 97 mL/min (>60) 06/07/18 06:33 BUN/Creatinine Ratio 13.1 RATIO (10-20) 06/07/18 06:33 Glucose 117 mg/dL (74-106) H 06/07/18 06:33 Vancomycin Trough 7.9 ug/mL (5.0-15.0) 06/07/18 21:42 Microbiology: Microbiology 06/05/18 14:40 Blood Culture (Wb) - Anticubital Right Blood Culture - Preliminary No growth in 48 hours. 06/05/18 14:33 Blood Culture (Wb) - Anticubital Left Blood Culture - Preliminary No growth in 48 hours. Goal Trough: 10-15 mcg/mL Pharmacy Plan for Drug Dosing: Pharmacy Service will continue to monitor and adjust dosing as required. Medications Vancomycin HCl 2,000 mg/ (Sodium Chloride) 540 mls @ 250 mls/hr IV Q12H NOEL TROUGH 7.9 NEW DOSE 2000MG Q12H NEXT TROUGH 06/09 @ 2200 Follow-Up Labs: Trough Vancomycin Labs to be done on [date and time ordered]: 06/09 @ 2200
[2018-06-08 03:46] VITALS: BP 120/84; PULSE 59; RESP 16; TEMP 36.4; O2SAT 98
[2018-06-08] MEDS: busPIRone 5 MG Tablet 10 MG PO ×3 (05:42→21:08)
[2018-06-08 06:07] LABS: Absolute Lymphocyte Count 1.08 X10^3/ul (0.83-4.51); Absolute Neutrophil Count 3.5 X10^3/uL (2.0-7.7); Basophil# 0.02 X10^3/uL; Basophil% 0.4 % (0-1); Eosinophil# 0.28 X10^3/uL; Eosinophils% 5.1 % (0-5); Hematocrit 44.3 % (40-54); Hemoglobin 15.1 g/dl (13.0-16.5); Lymphocyte # 1.08 X10^3/ul (4.0); Lymphocyte % 19.7 % (19-41); Mean Corp Hgb Conc 34.1 g/gl (32-36); Mean Corpuscular Hgb 30.5 pg (27.0-32.0); Mean Corpuscular Volume 89.5 fL (80-94); Mean Platelet Vol. 9.6 fl (6.2-12.0); Monocyte# 0.57 X10^3/uL; Monocyte% 10.4 % (0-10); Neutrophil # 3.52 X10^3/uL (2.7-7.7); Neutrophil % 64.2 % (47-70); Platelet Count 205 K/mm3 (150-450); RBC Distribution Width CV 12.6 % (11.6-14.6); Red Blood Count 4.95 M/mm3 (4.6-6.2); White Blood Count 5.5 K/mm3 (4.4-11.0)
[2018-06-08 06:21] LABS: POSITIVE COUNT NO; POSITIVE DIFFERENTIAL NO; POSITIVE MORPHOLOGY NO
[2018-06-08 06:30] LABS: Anion Gap 5 (5-15); BUN 10 mg/dL (7-18); BUN/Creat Ratio 11.6 RATIO (10-20); Calcium,Total 8.6 mg/dL (8.5-10.1); Chloride 110 mmol/L (98-107); Creatinine, Serum 0.86 mg/dL (0.70-1.30); EST Glomerular Filtration Rate 105 mL/min (>60); Est Glom Filt Rate - Afr Amer 127 mL/min (>60); Estimated Creatinine Clearance 122.82 ml/min; Glucose 99 mg/dL (74-106); Sodium Level 142 mmol/L (136-145)
--- NOTE | 2018-06-08 07:38 | PN.SURG_ITS ---
Patient Problems: Active and Suspected Problems Cellulitis of right leg without foot (Acute) Sepsis (Acute) Subjective: Pt states pain/pressure is improved was a 6/10 now 2/10 and pt states he thinks it is less swollen - Physical Exam General: Alert, Oriented x3, Cooperative, No apparent distress HEENT: Atraumatic Lungs: Normal air movement Cardiovascular: Regular rate Abdomen: Soft Extremities: - - Right anterior barone- +erythema about the same 5x5cm, maybe slightly fainter red, +ttp, less swelling/edema, no fluctuance on exam to suggest fluid collection Vital Signs Temp Pulse Resp BP Pulse Ox 97.6 F L 59 L 16 120/84 H 98 06/08/18 03:46 06/08/18 03:46 06/08/18 03:46 06/08/18 03:46 06/08/18 03:46 Oxygen Delivery Method Bi-pap Weight: 232 lb 12.93 oz Body Mass Index (BMI) 32.4 Intake and Output for Last 24 Hours 06/06/18 06/07/18 06/08/18 23:59 23:59 23:59 Intake Total 3682 / 3682 3805 / 3805 2278 / 2278 Output Total 3925 / 3925 1400 / 1400 1225 / 1225 Balance -243 / -243 2405 / 2405 1053 / 1053 Microbiology Past 72 Hours 06/05/18 14:40 Blood Culture - Preliminary Blood Culture (Wb) - Anticubital Right No growth in 48 hours. 06/05/18 14:33 Blood Culture - Preliminary Blood Culture (Wb) - Anticubital Left No growth in 48 hours. Laboratory Tests Past 24 Hrs 06/07/18 06/07/18 06/07/18 06:33 06:33 21:42 WBC 8.2 RBC 4.90 Hgb 14.9 Hct 43.9 MCV 89.6 MCH 30.4 MCHC 33.9 RDW 12.7 RDW Differential 41.1 Plt Count 203 MPV 9.9 Immature Gran % (Auto) 0.200 Neut % (Auto) 71.0 H Lymph % (Auto) 15.7 L [place] % (Auto) 9.2 Eos % (Auto) 3.7 Baso % (Auto) 0.2 Absolute Neuts (auto) 5.8 Absolute Lymphs (auto) 1.28 Total Counted Not Reportable Sodium 142 Potassium 3.9 Chloride 111 H Carbon Dioxide 25.0 Anion Gap 6 BUN 12 Creatinine 0.92 Estim Creat Clear Calc 114.81 Est GFR (MDRD) Af Amer 118 Est GFR (MDRD) Non-Af 97 BUN/Creatinine Ratio 13.1 Glucose 117 H Calcium 8.5 Magnesium 2.1 Vancomycin Trough 7.9 06/08/18 06/08/18 05:25 05:25 WBC 5.5 RBC 4.95 Hgb 15.1 Hct 44.3 MCV 89.5 MCH 30.5 MCHC 34.1 RDW 12.6 RDW Differential 41.0 Plt Count 205 MPV 9.6 Immature Gran % (Auto) 0.200 Neut % (Auto) 64.2 Lymph % (Auto) 19.7 [place] % (Auto) 10.4 H Eos % (Auto) 5.1 H Baso % (Auto) 0.4 Absolute Neuts (auto) 3.5 Absolute Lymphs (auto) 1.08 Total Counted Not Reportable Sodium 142 Potassium 4.0 Chloride 110 H Carbon Dioxide 27.0 Anion Gap 5 BUN 10 Creatinine 0.86 Estim Creat Clear Calc 122.82 Est GFR (MDRD) Af Amer 127 Est GFR (MDRD) Non-Af 105 BUN/Creatinine Ratio 11.6 Glucose 99 Calcium 8.6 Magnesium Vancomycin Trough Medical Necessity - Tobacco Use Smoking Status: Former smoker Tobacco Use: Cigarettes Assessment/Plan All Active Problems Cellulitis of right leg without foot (Acute) Sepsis (Acute) H. pylori infection (Resolved) 37 y/o male s/p I&D right anterior barone 1. Pt states pain is better, swelling is improved; however still about same erythema, maybe a little more faint. CT of leg didn't show any fluid collections, only a little purulent fluid obtained on I&D, wait cultures, continue IV abx-per primary.
[2018-06-08 08:11] VITALS: BP 130/91; PULSE 53; RESP 18; TEMP 37; O2SAT 98
[2018-06-08] MEDS: Pantoprazole Sodium 40 MG Tablet PO ×2 (08:20→21:08)
[2018-06-08] MEDS: 0.9% Normal Saline 1,000 ML 100 ML IV ×2 (09:54→21:07)
--- NOTE | 2018-06-08 10:58 | PCM.PN.HOSP ---
Patient Problems: Active and Suspected Problems Cellulitis of right leg without foot (Acute) Sepsis (Acute) Subjective: RLE feeling better. Less pain. Vitals/I&O's: Vital Signs Temp Pulse Resp BP Pulse Ox 37.0 C 53 L 18 130/91 H 98 06/08/18 08:11 06/08/18 08:11 06/08/18 08:11 06/08/18 08:11 06/08/18 08:11 Oxygen Delivery Method Room Air Weight: 105.6 kg Body Mass Index (BMI) 32.4 Intake and Output for Last 24 Hours 06/06/18 06/07/18 06/08/18 23:59 23:59 23:59 Intake Total 3682 / 3682 3805 / 3805 2278 / 2278 Output Total 3925 / 3925 1400 / 1400 1225 / 1225 Balance -243 / -243 2405 / 2405 1053 / 1053 General: Alert, No apparent distress HEENT: Atraumatic, Normocephalic Extremities: No edema, No Calf Tenderness Skin: - - decreased erythema RLE, withdrawn from line of demarcation. Microbiology Past 72 Hours 06/07/18 09:00 Incision/Surgical Site Gram Stain - Final 06/05/18 14:40 Blood Culture (Wb) - Anticubital Right Blood Culture - Preliminary No growth in 48 hours. 06/05/18 14:33 Blood Culture (Wb) - Anticubital Left Blood Culture - Preliminary No growth in 48 hours. Laboratory Results 06/07/18 21:42: Vancomycin Trough 7.9 06/08/18 05:25: WBC 5.5, RBC 4.95, Hgb 15.1, Hct 44.3, MCV 89.5, MCH 30.5, MCHC 34.1, RDW 12.6, RDW Differential 41.0, Plt Count 205, MPV 9.6, Immature Gran % (Auto) 0.200, Neut % (Auto) 64.2, Lymph % (Auto) 19.7, [place] % (Auto) 10.4 H, Eos % (Auto) 5.1 H, Baso % (Auto) 0.4, Absolute Neuts (auto) 3.5, Absolute Lymphs (auto) 1.08, Total Counted Not Reportable 06/08/18 05:25: Sodium 142, Potassium 4.0, Chloride 110 H, Carbon Dioxide 27.0, Anion Gap 5, BUN 10, Creatinine 0.86, Estim Creat Clear Calc 122.82, Est GFR (MDRD) Af Amer 127, Est GFR (MDRD) Non-Af 105, BUN/Creatinine Ratio 11.6, Glucose 99, Calcium 8.6 Current Medications Acetaminophen (Tylenol) 650 mg PO Q6H PRN PRN PRN Reason: Non-cardiac pain (mod-severe) Last Admin: 06/07/18 21:32 Dose: 650 mg Hydrocodone Bitart/Acetaminophen ([place] 5mg-325mg) 1 - 2 tablet PO Q6H PRN PRN PRN Reason: MOD-SEVERE PAIN (4-1010) Al Hydroxide/Mg Hydroxide ([place]ylanta Ii) 15 - 30 ml PO Q4H PRN PRN PRN Reason: INDIGESTION Albuterol Sulfate (Ventolin Aerosols) 2.5 mg INHALATION Q2H PRN PRN PRN Reason: dyspnea, wheezing Buspirone HCl (Buspar) 10 mg PO TID [facility] Last Admin: 06/08/18 05:42 Dose: 10 mg Dextrose (D50w Syringe) 0 gm IV X1 PRN; Protocol PRN Reason: Hypoglycemia Enoxaparin Sodium (Lovenox) 100 mg SC BID [facility] Last Admin: 06/08/18 08:22 Dose: Not Given Glucagon () 1 mg IM .X1 PRN PRN Reason: Hypoglycemia Hydralazine HCl (Apresoline Iv) 10 mg IV Q4H PRN PRN PRN Reason: SBP > 160 Sodium Chloride () 1,000 mls @ 100 mls/hr IV .Q10H [facility] Last Admin: 06/08/18 09:54 Dose: 100 mls/hr Vancomycin IV Pharmacy to Dose (1 ea/ Sodium Chloride) 500 mls @ 250 mls/hr IV X1 PRN; Protocol PRN Reason: Rx to Dose Piperacillin Sod/Tazobactam (Sod 3.375 gm/ Sodium Chloride) 50 mls @ 12.5 mls/hr IV Q8 [facility] Last Admin: 06/08/18 05:37 Dose: 12.5 mls/hr Clindamycin Phosphate 600 mg/ (Dextrose) 54 mls @ 100 mls/hr IV Q8H [facility] Last Admin: 06/08/18 03:43 Dose: 100 mls/hr Vancomycin HCl 2,000 mg/ (Sodium Chloride) 540 mls @ 250 mls/hr IV Q12H NOEL Last Admin: 06/08/18 09:54 Dose: 250 mls/hr Morphine Sulfate () 1 - 2 mg IV Q4H PRN PRN PRN Reason: PAIN Pantoprazole Sodium (Protonix) 40 mg PO BID NOEL Last Admin: 06/08/18 08:20 Dose: 40 mg Sodium Chloride () 5 - 15 ml IV UD PRN PRN Reason: SALINE FLUSH Last Admin: 06/07/18 09:20 Dose: 10 ml Medical Necessity - Tobacco Use Smoking Status: Former smoker Tobacco Use: Cigarettes Assessment/Plan All Active Problems Cellulitis of right leg without foot (Acute) Sepsis (Acute) H. pylori infection (Resolved) 1. RLE cellulitis and abscess improving. I+D done 06/07, cultures pending Continue vanc DC Zosyn adjust abx accordingly based on cultures not sure this was an abx failure 2. Sepsis POA 2/2 #1 resolved 3. VTE proph: LMWH. Code Visit Inpatient E&M: 42712 Subs Hosp L1
--- NOTE | 2018-06-08 11:02 | PN_ITS ---
Patient Problems: Active and Suspected Problems Cellulitis of right leg without foot (Acute) Sepsis (Acute) Subjective: RLE feeling better. Less pain. Vitals/I&O's: Vital Signs Temp Pulse Resp BP Pulse Ox 37.0 C 53 L 18 130/91 H 98 06/08/18 08:11 06/08/18 08:11 06/08/18 08:11 06/08/18 08:11 06/08/18 08:11 Oxygen Delivery Method Room Air Weight: 105.6 kg Body Mass Index (BMI) 32.4 Intake and Output for Last 24 Hours 06/06/18 06/07/18 06/08/18 23:59 23:59 23:59 Intake Total 3682 / 3682 3805 / 3805 2278 / 2278 Output Total 3925 / 3925 1400 / 1400 1225 / 1225 Balance -243 / -243 2405 / 2405 1053 / 1053 General: Alert, No apparent distress HEENT: Atraumatic, Normocephalic Extremities: No edema, No Calf Tenderness Skin: - - decreased erythema RLE, withdrawn from line of demarcation. Microbiology Past 72 Hours 06/07/18 09:00 Incision/Surgical Site Gram Stain - Final 06/05/18 14:40 Blood Culture (Wb) - Anticubital Right Blood Culture - Preliminary No growth in 48 hours. 06/05/18 14:33 Blood Culture (Wb) - Anticubital Left Blood Culture - Preliminary No growth in 48 hours. Laboratory Results 06/07/18 21:42: Vancomycin Trough 7.9 06/08/18 05:25: WBC 5.5, RBC 4.95, Hgb 15.1, Hct 44.3, MCV 89.5, MCH 30.5, MCHC 34.1, RDW 12.6, RDW Differential 41.0, Plt Count 205, MPV 9.6, Immature Gran % (Auto) 0.200, Neut % (Auto) 64.2, Lymph % (Auto) 19.7, [place] % (Auto) 10.4 H, Eos % (Auto) 5.1 H, Baso % (Auto) 0.4, Absolute Neuts (auto) 3.5, Absolute Lymphs (auto) 1.08, Total Counted Not Reportable 06/08/18 05:25: Sodium 142, Potassium 4.0, Chloride 110 H, Carbon Dioxide 27.0, Anion Gap 5, BUN 10, Creatinine 0.86, Estim Creat Clear Calc 122.82, Est GFR (MDRD) Af Amer 127, Est GFR (MDRD) Non-Af 105, BUN/Creatinine Ratio 11.6, Glucose 99, Calcium 8.6 Current Medications Acetaminophen (Tylenol) 650 mg PO Q6H PRN PRN PRN Reason: Non-cardiac pain (mod-severe) Last Admin: 06/07/18 21:32 Dose: 650 mg Hydrocodone Bitart/Acetaminophen ([place] 5mg-325mg) 1 - 2 tablet PO Q6H PRN PRN PRN Reason: MOD-SEVERE PAIN (4-1010) Al Hydroxide/Mg Hydroxide (Mylanta Ii) 15 - 30 ml PO Q4H PRN PRN PRN Reason: INDIGESTION Albuterol Sulfate (Ventolin Aerosols) 2.5 mg INHALATION Q2H PRN PRN PRN Reason: dyspnea, wheezing Buspirone HCl (Buspar) 10 mg PO TID [facility] Last Admin: 06/08/18 05:42 Dose: 10 mg Dextrose (D50w Syringe) 0 gm IV X1 PRN; Protocol PRN Reason: Hypoglycemia Enoxaparin Sodium (Lovenox) 100 mg SC BID [facility] Last Admin: 06/08/18 08:22 Dose: Not Given Glucagon () 1 mg IM .X1 PRN PRN Reason: Hypoglycemia Hydralazine HCl (Apresoline Iv) 10 mg IV Q4H PRN PRN PRN Reason: SBP > 160 Sodium Chloride () 1,000 mls @ 100 mls/hr IV .Q10H [facility] Last Admin: 06/08/18 09:54 Dose: 100 mls/hr Vancomycin IV Pharmacy to Dose (1 ea/ Sodium Chloride) 500 mls @ 250 mls/hr IV X1 PRN; Protocol PRN Reason: Rx to Dose Piperacillin Sod/Tazobactam (Sod 3.375 gm/ Sodium Chloride) 50 mls @ 12.5 mls/hr IV Q8 [facility] Last Admin: 06/08/18 05:37 Dose: 12.5 mls/hr Clindamycin Phosphate 600 mg/ (Dextrose) 54 mls @ 100 mls/hr IV Q8H [facility] Last Admin: 06/08/18 03:43 Dose: 100 mls/hr Vancomycin HCl 2,000 mg/ (Sodium Chloride) 540 mls @ 250 mls/hr IV Q12H [facility] Last Admin: 06/08/18 09:54 Dose: 250 mls/hr Morphine Sulfate () 1 - 2 mg IV Q4H PRN PRN PRN Reason: PAIN Pantoprazole Sodium (Protonix) 40 mg PO BID [facility] Last Admin: 06/08/18 08:20 Dose: 40 mg Sodium Chloride () 5 - 15 ml IV UD PRN PRN Reason: SALINE FLUSH Last Admin: 06/07/18 09:20 Dose: 10 ml Medical Necessity - Tobacco Use Smoking Status: Former smoker Tobacco Use: Cigarettes Assessment/Plan All Active Problems Cellulitis of right leg without foot (Acute) Sepsis (Acute) H. pylori infection (Resolved) 1. RLE cellulitis and abscess * improving. * I+D done 06/07, cultures pending * Continue vanc * DC Zosyn * adjust abx accordingly based on cultures * not sure this was an abx failure 2. Sepsis * POA * 2/2 #1 * resolved 3. VTE proph: LMWH. Code Visit Inpatient E&M: 84615 Subs Hosp L1
[2018-06-08 14:00] VITALS: BP 131/89; PULSE 70; RESP 18; TEMP 37.2; O2SAT 98
[2018-06-08] MEDS: Acetaminophen 325 MG Tablet 650 MG PO (15:44)
[2018-06-08 20:21] VITALS: BP 126/84; PULSE 72; RESP 16; TEMP 36.7; O2SAT 97
[2018-06-08] MEDS: Enoxaparin 100 MG/ML Syringe SC (21:08)
[2018-06-09 03:48] VITALS: BP 124/87; PULSE 58; RESP 16; TEMP 36.9; O2SAT 97
[2018-06-09] MEDS: busPIRone 5 MG Tablet 10 MG PO (05:33)
[2018-06-09 07:07] LABS: Absolute Lymphocyte Count 1.26 X10^3/ul (0.83-4.51); Absolute Neutrophil Count 3.6 X10^3/uL (2.0-7.7); Basophil# 0.01 X10^3/uL; Basophil% 0.2 % (0-1); Eosinophil# 0.31 X10^3/uL; Eosinophils% 5.4 % (0-5); Hematocrit 45.8 % (40-54); Hemoglobin 15.6 g/dl (13.0-16.5); Lymphocyte # 1.26 X10^3/ul (4.0); Lymphocyte % 22.1 % (19-41); Mean Corp Hgb Conc 34.1 g/gl (32-36); Mean Corpuscular Hgb 29.8 pg (27.0-32.0); Mean Corpuscular Volume 87.6 fL (80-94); Mean Platelet Vol. 9.7 fl (6.2-12.0); Monocyte# 0.52 X10^3/uL; Monocyte% 9.1 % (0-10); Neutrophil # 3.59 X10^3/uL (2.7-7.7); Neutrophil % 62.8 % (47-70); Platelet Count 210 K/mm3 (150-450); RBC Distribution Width CV 12.4 % (11.6-14.6); RBC Distribution Width SD 39.6 fl (35.1-43.9); Red Blood Count 5.23 M/mm3 (4.6-6.2); White Blood Count 5.7 K/mm3 (4.4-11.0)
[2018-06-09 07:09] LABS: POSITIVE COUNT NO; POSITIVE DIFFERENTIAL NO; POSITIVE MORPHOLOGY NO
[2018-06-09 07:32] LABS: Anion Gap 10 (5-15); BUN 9 mg/dL (7-18); BUN/Creat Ratio 9.8 RATIO (10-20); Calcium,Total 8.8 mg/dL (8.5-10.1); Chloride 107 mmol/L (98-107); Creatinine, Serum 0.92 mg/dL (0.70-1.30); EST Glomerular Filtration Rate 97 mL/min (>60); Est Glom Filt Rate - Afr Amer 118 mL/min (>60); Estimated Creatinine Clearance 114.81 ml/min; Glucose 120 mg/dL (74-106); Sodium Level 142 mmol/L (136-145)
--- NOTE | 2018-06-09 08:35 | PN.SURG_ITS ---
Patient Problems: Active and Suspected Problems Cellulitis of right leg without foot (Acute) Sepsis (Acute) Subjective: Patient states pain is a 1 out of 6, patient has been ambulating. Patient has had some diarrhea however he has been on IV antibiotics. - Physical Exam General: Alert, Oriented x3, Cooperative, No apparent distress HEENT: Atraumatic Lungs: Normal air movement Extremities: - - Right anterior barone: Still about a 4 x 4 centimeter area of erythema, minimal drainage on the dressing the I&D site still open, mild tenderness palpation of the erythematous area, no obvious fluctuance on exam Vital Signs Temp Pulse Resp BP Pulse Ox 98.4 F 58 L 16 124/87 H 97 06/09/18 03:48 06/09/18 03:48 06/09/18 03:48 06/09/18 03:48 06/09/18 03:48 Oxygen Delivery Method CPAP Weight: 232 lb 12.93 oz Body Mass Index (BMI) 32.4 Intake and Output for Last 24 Hours 06/07/18 06/08/18 06/09/18 23:59 23:59 23:59 Intake Total 3805 / 3805 7055 / 7055 802 / 802 Output Total 1400 / 1400 4375 / 4375 500 / 500 Balance 2405 / 2405 2680 / 2680 302 / 302 Microbiology Past 72 Hours 06/07/18 09:00 Gram Stain - Final Incision/Surgical Site Wound Culture - Final Staphylococcus aureus 06/05/18 14:40 Blood Culture - Preliminary Blood Culture (Wb) - Anticubital Right No growth in 48 hours. 06/05/18 14:33 Blood Culture - Preliminary Blood Culture (Wb) - Anticubital Left No growth in 48 hours. Laboratory Tests Past 24 Hrs 06/09/18 06/09/18 06:30 06:30 WBC 5.7 RBC 5.23 Hgb 15.6 Hct 45.8 MCV 87.6 MCH 29.8 MCHC 34.1 RDW 12.4 RDW Differential 39.6 Plt Count 210 MPV 9.7 Immature Gran % (Auto) 0.400 Neut % (Auto) 62.8 Lymph % (Auto) 22.1 [place] % (Auto) 9.1 Eos % (Auto) 5.4 H Baso % (Auto) 0.2 Absolute Neuts (auto) 3.6 Absolute Lymphs (auto) 1.26 Total Counted Not Reportable Sodium 142 Potassium 4.0 Chloride 107 Carbon Dioxide 25.0 Anion Gap 10 BUN 9 Creatinine 0.92 Estim Creat Clear Calc 114.81 Est GFR (MDRD) Af Amer 118 Est GFR (MDRD) Non-Af 97 BUN/Creatinine Ratio 9.8 L Glucose 120 H Calcium 8.8 Medical Necessity - Tobacco Use Smoking Status: Former smoker Tobacco Use: Cigarettes Assessment/Plan All Active Problems Cellulitis of right leg without foot (Acute) Sepsis (Acute) H. pylori infection (Resolved) 37 y/o male s/p I&D right anterior barone, culture staph aureus 1. Pt states pain is better, swelling is improved; however still about same erythema, maybe a little more faint-no fluctuation on exam. Continue IV pain per primary, cultures are showing staph aureus await sensitivities Bianca Rojas M.D. Pager: [phone] [facility] [address] [place] [address], [facility], [address] [place] [address] Office: [phone]
[2018-06-09] MEDS: Pantoprazole Sodium 40 MG Tablet PO (09:04)
[2018-06-09 09:16] VITALS: BP 129/92; PULSE 68; RESP 16; TEMP 36.1; O2SAT 98
--- NOTE | 2018-06-09 10:10 | DCINST_ITS ---
- Discharge Diagnoses Current Active Problems: Current Active and Chronic Problems Cellulitis of right leg without foot (Acute) Sepsis (Acute) You will use the following diet at home:: No restrictions Your food should be the consistency of: Regular Your liquids should be the consistency of: Regular/Thin Discharge Activity: Return to Normal Activity Return to work on:: 06/10/18 Keep extremity elevated above heart level: Right Leg Call your doctor if your incision/area has: Continuous Slow Oozing, Sudden Increased Bleeding, Increased Pain/ Swelling, Increased Redness Call your doctor if you observe: Fever of 101 or Higher Cleanse incision/area with: Soap & Water, Keep Dressing Clean & Dry - until healed. Allergies/Adverse Reactions: Allergies calamine Allergy (Verified 06/05/18 13:24) Swelling codeine Allergy (Verified 06/05/18 13:24) Hives perphenazine Allergy (Verified 06/05/18 13:24) Swelling rizatriptan Allergy (Verified 06/05/18 13:24) Anaphylaxis topiramate Allergy (Verified 06/05/18 13:24) Anaphylaxis morphine Adverse Reaction (Verified 06/05/18 13:24) Nausea/Vom/Diarrhea ENVIRONMENTAL Allergy (Uncoded 06/05/18 13:24) Itching Medications to take at Discharge Omeprazole [Prilosec] 40 mg PO BID 03/08/13 Epi Pen (for allergic rxn) 0.3 mg IM X1 PRN 08/22/14 busPIRone [Buspar] 10 mg PO TID 06/05/18 Acetaminophen [Tylenol Tablet] 650 mg PO Q6H PRN PRN tablet 06/09/18 Ibuprofen 2 - 3 tab PO Q6H PRN #1 tablet 06/09/18 Sulfamethoxazole/Trimethoprim [Bactrim Ds Tablet] 1 each PO BID #1 tablet 06/09/18 The following prescriptions were given: Sulfamethoxazole/Trimethoprim [Bactrim Ds Tablet] 1 each PO BID #1 tablet Ibuprofen 2 - 3 tab PO Q6H PRN #1 tablet PRN Reason: Pain Primary Care Physician: Bruno Tim DO [Primary Care Provider] - Within 2 Weeks Test Results: Test results from this visit will be discussed in further detail at your follow- up appointment, if applicable. Proposed Discharge Date: 06/09/18
--- NOTE | 2018-06-09 10:10 | PCM.WORK.EX ---
Work/School Excuse Work/School Excuse for:: Patient Please excuse this person from:: Work From: 06/05/18 through: 06/09/18
--- NOTE | 2018-06-09 10:10 | PCM.DC.SUM ---
Discharge Date and Diagnosis - Problem List Patient Problems: Active and Suspected Problems Cellulitis of right leg without foot (Acute) Sepsis (Acute) Date of Admission: 06/05/18 Date of Discharge: 06/09/18 - Primary Discharge Diagnosis Active and Suspected Problems Cellulitis of right leg without foot (Acute) Sepsis (Acute) 1. RLE cellulitis and abscess MSSA finish Bactrim (hold Keflex) improving. I+D done 06/07, cultures pending 2. Sepsis POA 03/14 #1 resolved - Secondary Discharge Diagnosis Chronic Problems GERD with esophagitis (Chronic) Hospital Course and Treatment Imaging Results: Clinical Impression(s) from Imaging Studies Lower Extremity CT 06/07/18 08:02 IMPRESSION: Things are most consistent with cellulitis overlying the tibial tuberosity. No definitive evidence of abscess. There is a trace joint effusion and degenerative change within the knee joint as detailed above. There is likely laxity or prior injury of the medial patellar retinaculum. Electronically Signed: Gladys Conley MD at 8:54 EDT Tel , Service support , Bianca Rojas MD: Surgery Operations: None Procedures: - - I+D right barone abscess. Summary of Care Provided: The patient is a 37 year old M with sepsis and cellulitis of the right barone. Patient was seen earlier in the emergency room and diagnosed with cellulitis and discharged with Bactrim and Keflex. Returns a short time later with just pain after standing on his leg. Patient was seen by general surgery and did a bedside I&D and had a culture that came back showing methicillin sensitive staph aureus. Overall, his cellulitis is improved though not completely resolved at this time. Does recommend the patient just continue with the Bactrim and hold off on the Keflex and to return if he has any worsening symptoms. Patient did have some temporary diarrhea while he was here but this subsequently resolved. His normal stools since and therefore I do not feel that this is C. difficile. Though I did talk to the patient about being on antibiotics and hospitalization is being risk factors for C. difficile and that he could be at risk for developing that and advised him if he does have worsening refractory diarrhea and/or abdominal pain to notify his primary care provider or go to an urgent care or emergency room for further evaluation. [] Patient Problems: Active and Suspected Problems Cellulitis of right leg without foot (Acute) Sepsis (Acute) - Physical Exam General: Alert, No apparent distress HEENT: Atraumatic, Normocephalic Skin: - - resolving erythema of right barone. Psych/Mental Status: Normal Affect, Appropriate Vital Signs Temp Pulse Resp BP Pulse Ox 36.1 C L 68 16 129/92 H 98 06/09/18 09:16 06/09/18 09:16 06/09/18 09:16 06/09/18 09:16 06/09/18 09:16 Oxygen Delivery Method Room Air Weight: 105.6 kg Body Mass Index (BMI) 32.4 Intake and Output for Last 24 Hours 06/07/18 06/08/18 06/09/18 23:59 23:59 23:59 Intake Total 3805 / 3805 7055 / 7055 802 / 802 Output Total 1400 / 1400 4375 / 4375 500 / 500 Balance 2405 / 2405 2680 / 2680 302 / 302 Microbiology Past 72 Hours 06/07/18 09:00 Gram Stain - Final Incision/Surgical Site Wound Culture - Final Staphylococcus aureus 06/05/18 14:40 Blood Culture - Preliminary Blood Culture (Wb) - Anticubital Right No growth in 48 hours. 06/05/18 14:33 Blood Culture - Preliminary Blood Culture (Wb) - Anticubital Left No growth in 48 hours. Laboratory Tests Past 24 Hrs 06/09/18 06/09/18 06:30 06:30 WBC 5.7 RBC 5.23 Hgb 15.6 Hct 45.8 MCV 87.6 MCH 29.8 MCHC 34.1 RDW 12.4 RDW Differential 39.6 Plt Count 210 MPV 9.7 Immature Gran % (Auto) 0.400 Neut % (Auto) 62.8 Lymph % (Auto) 22.1 [place] % (Auto) 9.1 Eos % (Auto) 5.4 H Baso % (Auto) 0.2 Absolute Neuts (auto) 3.6 Absolute Lymphs (auto) 1.26 Total Counted Not Reportable Sodium 142 Potassium 4.0 Chloride 107 Carbon Dioxide 25.0 Anion Gap 10 BUN 9 Creatinine 0.92 Estim Creat Clear Calc 114.81 Est GFR (MDRD) Af Amer 118 Est GFR (MDRD) Non-Af 97 BUN/Creatinine Ratio 9.8 L Glucose 120 H Calcium 8.8 Discharge Diet: No Restrictions Discharge Activity: Return to Normal Activity Return to work on:: 06/10/18 Keep extremity elevated above heart level: Right Leg Call your doctor if your incision/area has: Continuous Slow Oozing, Sudden Increased Bleeding, Increased Pain/ Swelling, Increased Redness Call your doctor if you observe: Fever of 101 or Higher Cleanse incision/area with: Soap & Water, Keep Dressing Clean & Dry - until healed. Home Medications: Medications to take at Discharge Omeprazole [Prilosec] 40 mg PO BID 03/08/13 Epi Pen (for allergic rxn) 0.3 mg IM X1 PRN 08/22/14 busPIRone [Buspar] 10 mg PO TID 06/05/18 Acetaminophen [Tylenol Tablet] 650 mg PO Q6H PRN PRN tablet 06/09/18 Ibuprofen 2 - 3 tab PO Q6H PRN #1 tablet 06/09/18 Sulfamethoxazole/Trimethoprim [Bactrim Ds Tablet] 1 each PO BID #1 tablet 06/09/18 Following Prescrptions Were Given to Patient: Sulfamethoxazole/Trimethoprim [Bactrim Ds Tablet] 1 each PO BID #1 tablet Ibuprofen 2 - 3 tab PO Q6H PRN #1 tablet PRN Reason: Pain Primary Care Physician: Bruno Tim DO [Primary Care Provider] - Within 2 Weeks Disposition: Home Minutes spent on discharge:: 32 Patient Condition:: Good Medical Necessity - Tobacco Use Smoking Status: Former smoker Tobacco Use: Cigarettes Meaningful Use Info Meaningful Use Diagnoses (Choose all that apply): None applicable Code Visit Inpatient E&M: 65068 Disch Hosp
--- NOTE | 2018-06-09 10:14 | DS.PCM_ITS ---
Discharge Date and Diagnosis - Problem List Patient Problems: Active and Suspected Problems Cellulitis of right leg without foot (Acute) Sepsis (Acute) Date of Admission: 06/05/18 Date of Discharge: 06/09/18 - Primary Discharge Diagnosis Active and Suspected Problems Cellulitis of right leg without foot (Acute) Sepsis (Acute) 1. RLE cellulitis and abscess * MSSA * finish Bactrim (hold Keflex) * improving. * I+D done 06/07, cultures pending 2. Sepsis * POA * 2/ #1 * resolved - Secondary Discharge Diagnosis Chronic Problems GERD with esophagitis (Chronic) Hospital Course and Treatment Imaging Results: Clinical Impression(s) from Imaging Studies Lower Extremity CT 06/07/18 08:02 IMPRESSION: Things are most consistent with cellulitis overlying the tibial tuberosity. No definitive evidence of abscess. There is a trace joint effusion and degenerative change within the knee joint as detailed above. There is likely laxity or prior injury of the medial patellar retinaculum. Electronically Signed: Gladys Conley MD at 8:54 EDT Tel , Service support , Bianca Rojas MD: Surgery Operations: None Procedures: - - I+D right barone abscess. Summary of Care Provided: The patient is a 37 year old M with sepsis and cellulitis of the right barone. Patient was seen earlier in the emergency room and diagnosed with cellulitis and discharged with Bactrim and Keflex. Returns a short time later with just pain after standing on his leg. Patient was seen by general surgery and did a bedside I&D and had a culture that came back showing methicillin sensitive staph aureus. Overall, his cellulitis is improved though not completely resolved at this time. Does recommend the patient just continue with the Bactrim and hold off on the Keflex and to return if he has any worsening symptoms. Patient did have some temporary diarrhea while he was here but this subsequently resolved. His normal stools since and therefore I do not feel that this is C. difficile. Though I did talk to the patient about being on antibiotics and hospitalization is being risk factors for C. difficile and that he could be at risk for developing that and advised him if he does have worsening refractory diarrhea and/or abdominal pain to notify his primary care provider or go to an urgent care or emergency room for further evaluation. [] Patient Problems: Active and Suspected Problems Cellulitis of right leg without foot (Acute) Sepsis (Acute) - Physical Exam General: Alert, No apparent distress HEENT: Atraumatic, Normocephalic Skin: - - resolving erythema of right barone. Psych/Mental Status: Normal Affect, Appropriate Vital Signs Temp Pulse Resp BP Pulse Ox 36.1 C L 68 16 129/92 H 98 06/09/18 09:16 06/09/18 09:16 06/09/18 09:16 06/09/18 09:16 06/09/18 09:16 Oxygen Delivery Method Room Air Weight: 105.6 kg Body Mass Index (BMI) 32.4 Intake and Output for Last 24 Hours 06/07/18 06/08/18 06/09/18 23:59 23:59 23:59 Intake Total 3805 / 3805 7055 / 7055 802 / 802 Output Total 1400 / 1400 4375 / 4375 500 / 500 Balance 2405 / 2405 2680 / 2680 302 / 302 Microbiology Past 72 Hours 06/07/18 09:00 Gram Stain - Final Incision/Surgical Site Wound Culture - Final Staphylococcus aureus 06/05/18 14:40 Blood Culture - Preliminary Blood Culture (Wb) - Anticubital Right No growth in 48 hours. 06/05/18 14:33 Blood Culture - Preliminary Blood Culture (Wb) - Anticubital Left No growth in 48 hours. Laboratory Tests Past 24 Hrs 06/09/18 06/09/18 06:30 06:30 WBC 5.7 RBC 5.23 Hgb 15.6 Hct 45.8 MCV 87.6 MCH 29.8 MCHC 34.1 RDW 12.4 RDW Differential 39.6 Plt Count 210 MPV 9.7 Immature Gran % (Auto) 0.400 Neut % (Auto) 62.8 Lymph % (Auto) 22.1 [place] % (Auto) 9.1 Eos % (Auto) 5.4 H Baso % (Auto) 0.2 Absolute Neuts (auto) 3.6 Absolute Lymphs (auto) 1.26 Total Counted Not Reportable Sodium 142 Potassium 4.0 Chloride 107 Carbon Dioxide 25.0 Anion Gap 10 BUN 9 Creatinine 0.92 Estim Creat Clear Calc 114.81 Est GFR (MDRD) Af Amer 118 Est GFR (MDRD) Non-Af 97 BUN/Creatinine Ratio 9.8 L Glucose 120 H Calcium 8.8 Discharge Diet: No Restrictions Discharge Activity: Return to Normal Activity Return to work on:: 06/10/18 Keep extremity elevated above heart level: Right Leg Call your doctor if your incision/area has: Continuous Slow Oozing, Sudden Increased Bleeding, Increased Pain/ Swelling, Increased Redness Call your doctor if you observe: Fever of 101 or Higher Cleanse incision/area with: Soap & Water, Keep Dressing Clean & Dry - until healed. Home Medications: Medications to take at Discharge Omeprazole [Prilosec] 40 mg PO BID 03/08/13 Epi Pen (for allergic rxn) 0.3 mg IM X1 PRN 08/22/14 busPIRone [Buspar] 10 mg PO TID 06/05/18 Acetaminophen [Tylenol Tablet] 650 mg PO Q6H PRN PRN tablet 06/09/18 Ibuprofen 2 - 3 tab PO Q6H PRN #1 tablet 06/09/18 Sulfamethoxazole/Trimethoprim [Bactrim Ds Tablet] 1 each PO BID #1 tablet 06/09/18 Following Prescrptions Were Given to Patient: Sulfamethoxazole/Trimethoprim [Bactrim Ds Tablet] 1 each PO BID #1 tablet Ibuprofen 2 - 3 tab PO Q6H PRN #1 tablet PRN Reason: Pain Primary Care Physician: Bruno Tim DO [Primary Care Provider] - Within 2 Weeks Disposition: Home Minutes spent on discharge:: 32 Patient Condition:: Good Medical Necessity - Tobacco Use Smoking Status: Former smoker Tobacco Use: Cigarettes Meaningful Use Info Meaningful Use Diagnoses (Choose all that apply): None applicable Code Visit Inpatient E&M: 51194 Disch Hosp
[2018-06-09 11:05] VITALS: BP 138/74; PULSE 74; RESP 18; TEMP 36.9; O2SAT 98
--- NOTE | 2018-06-10 14:32 | CASEMGMT ---
RN DAKSHA Discharge Follow-Up Phone Call. Lace: 10 Strata: 3 Discharge Date: 06/09/18 Adm Dx: Cellulitis Attempted discharge follow-up phone call. No answer. Message left for pt to return call to MS2 NOLAN CROOKS, Rajesh, if he has any questions about discharge instructions, medications, appts, or any other concerns. Phone number provided. Melecio BUCHANAN RN CM
== END 2018-06-09 11:05 | disposition home or self-care (01) | DRG 720 ==
LOC: ED 15:32 → MS2 16:06
PROVIDERS: Internal Medicine; Admitting Provider Family Medicine; Emergency Provider Emergency Medicine; Family Provider Family Medicine; PCP Family Medicine; Referring Provider Family Medicine
DX: A41.9 Sepsis, unspecified organism (principal); L02.415 Cutaneous abscess of right lower limb; L03.115 Cellulitis of right lower limb; G47.33 Obstructive sleep apnea (adult) (pediatric); F41.9 Anxiety disorder, unspecified; E66.9 Obesity, unspecified; B95.61 Methicillin susceptible Staphylococcus aureus infection as the cause of diseases classified elsewhere; K21.0 Gastro-esophageal reflux disease with esophagitis; Z68.32 Body mass index [BMI] 32.0-32.9, adult; S80.871A Other superficial bite, right lower leg, initial encounter; Z87.891 Personal history of nicotine dependence; X58.XXXA Exposure to other specified factors, initial encounter; Y93.9 Activity, unspecified; Y92.9 Unspecified place or not applicable
CPT/HCPCS: 36415; 73701; 80048; 80202; 83605; 83735; 85025; 87040; 87070; 87075; 87077; 87186; 87205; 87493; 93971; 99283; 99285; J7030; J7040; Q9967; A4216

== ENCOUNTER → 2018-09-15 | Outpatient (CLI) | payer MEDICAID, SELFPAY ==
--- NOTE | 2018-09-15 17:10 | MRI_ITS ---
HISTORY:instability, recurrent patellar dislocation MRI EXAMINATION OF THERight KNEE COMPARISON: None TECHNIQUE: Coronal proton density, fat-suppressed T2, thin section T2, sagittal proton density and fat-suppressed T2 and axial fat-suppressed T2 # of images including paperwork:207 FINDINGS: Bones: There is marrow edema and following the far lateral anterior femoral tibia with an associated subcortical cysts. Minimal marrow edema is seen at the far medial inferior patella. Ligaments and tendons: The medial collateral ligaments, anterior and posterior cruciate ligaments, iliotibial band, biceps femoris tendon, as anserine is tendons, and popliteus tendons are intact. There is minimal abnormal signal seen within the lateral collateral ligament near its attachment suspect for chronic mild sprain Extensor mechanism: The quadriceps tendon and the patellar tendon are intact. A trace amount of fluid is seen within the deep patella bursa The medial and lateral retinaculum are intact. Knee joint: Trace joint effusion. No significant popliteal cyst. No loose bodies are noted Medial compartment: No evidence of a meniscal tear. The articular cartilage is intact Lateral compartment: No evidence of a meniscal tear. The articular cartilage is intact Patellofemoral articulation: The articular cartilage of the patella and the trochlea are intact MRI/Lower Ext Joint Only (Routine) IMPRESSION: There is subchondral edema and subcortical cyst formation that is seen at the far anterior lateral tibia Trace edema seen at the inferior lateral patella. Trace joint effusion Trace amount of fluid within the deep infrapatellar bursa Minimal abnormal signal within the proximal lateral collateral ligament near its attachment suggesting a chronic mild sprain at 1940 Reported and signed by: Gladys Haq DO Electronically Signed: Gladys Haq DO at 19:39 EDT Tel , Service support ,
== END | disposition home or self-care (01) ==
LOC: MRI 16:42
PROVIDERS: Family Provider Family Medicine; PCP Family Medicine; Referring Provider Family Medicine; Visit Provider Family Medicine
DX: M25.561 Pain in right knee (principal); M22.01 Recurrent dislocation of patella, right knee
CPT/HCPCS: 73721

== ENCOUNTER 2018-09-18 11:54 | Outpatient (RCR) | payer MEDICAID, SELFPAY ==
--- NOTE | 2018-09-18 12:51 | HP.PTEVAL_ITS ---
Patient's Visit Information BENY GAXIOLA is a 38 year old M referred to Physical Therapy by Bruno Tim DO with a diagnosis of RIGHT KNEE PAIN. Date of Evaluation: 09/18/18 Physical Therapist: Jose Rizo, PT, Cert MDT, OCS - Visit Plan Frequency: 2x /Week Duration: 4 Weeks Plan: PT INTERVENTIONS PRES' QUADS/HAMS/HIP,FLEXABLITY,MODALITIES ORN,FUNCTIONAL STRENGTHENING - Subjective Findings: This 38 y/o male presents to physical therapy physical therapy with right knee pain. Patient was mowing dog and slipped in yard . Pateint twisted knee causing immediate pain. Patient pain seen DR 2 weeks ago . Patient had MRI -. Patient pain is global knee. Pain is desribed as sharp pain. Patient aggraveting bending ,lifting squatting,kneeling. Alleviating factors rest. Patient pain affects job demands ,ADLS' and housework tasks. Patient pain affects sleeping. Denies parathesia/tingling. Patient knee pain affects QOL. SOCAIL: spouse. VOCATION: cuts cars - Pain Right Knee Pain Intensity (Out of 10): 5 Pain Intensity Range: 10 - Objective POSTURE: WFL. GAIT: reciprocal pattern. PALAPTION: medial joint line. EDEMA: ABSENT. FLEXABILITY: hams mod tight. AROM: 0-135 supine knee flexion. MMT: quads 4-/5,hams 4/5,hip flexion 4/5,hip abd 4-/5,ankle5/5. STAIRS: alteranating - Special Tests R Knee Maryse - Meniscus: Negative R Knee Apley - Meniscus: Negative R Knee Eduardo - ACL: Negative R Knee Anterior Drawer - ACL: Negative R Knee Valgus - MCL: Negative R Knee Varus - LCL: Negative R Knee Patellar Grind - PFS: Negative - Goals Goal 1:: Indeepndant with HEP. Goal Time Frame: 2-4 Weeks Goal 2:: Pateint to decrease knee pain by 75% or greater to improve function. Goal Time Frame: 2-4 Weeks Goal 3:: Patient increase strength quads/hams 5/5 to improve function. Goal Time Frame: 2-4 Weeks Goal 4:: Patient to improve ability to perform squatting/kneeling/lifting for jpob deamnds. Goal Time Frame: 2-4 Weeks Goal 5:: Patient to improve LFES score by 5-8 points > to improve QOL. Goal Time Frame: 2-4 Weeks - Rehabilitation Potential Physical Therapy Diagnosis: Patient has right knee pain with weakness and pain impairs job demnads and lifting ,MRI was negative except effusion . Rehabilitation Potential: Good - Anticipated Interventions Patient/Client Instruction: Educate patient on: Condition, Plan of Care For the Purpose of:: To decrease pain, To increase ROM, To improve muscle performance and motor function, To improve ability to perform ADL's, To increase tolerance to activity/condition/position, To improve ability of physical actions for home/community/work/leisure, To improve health of tissue, To decrease soft tissue restriction, To increase flexibility/ROM, To improve ability to perform tasks related to life management Therapeutic Exercise to Include: Strength training, Balance training, Postural training, Active ROM Comment: KNEE /HIP For the Purpose of:: To decrease pain, To increase ROM, To improve muscle performance and motor function, To increase tolerance to activity/condition/position, To improve ability of physical actions for home/community/work/leisure, To improve health of tissue, To decrease soft tissue restriction, To increase flexibility/ROM, To improve ability to perform tasks related to life management TENS: Yes IF ES: Yes Cryotherapy (ice pack, ice massage): Yes Thermo therapy (hot pack): Yes For the Purpose of:: To decrease pain, To increase ROM, To improve health of tissue, To decrease soft tissue restriction Thank you for the opportunity to evaluate your patient. For Medicare and Medicare HMO plans, please review the plan of care and approve it. It will need to be FAXED BACK to us at [phone] for Medicare purposes. For Medicare only, by signing this I certify the plan of care. Please let me know if there are questions or concerns regarding this plan of care. Physician Signature: Date:
--- NOTE | 2018-12-01 09:56 | HP.PT.NRP ---
HP - Discharge Summary (1) - Patient Information BENY GAXIOLA was seen in my office for initial evaluation on 09/18/18. The following Plan of Care was established for this patient: Initial Frequency: 2x /Week Initial Duration: 4 Weeks - Anticipated Interventions Patient/Client Instruction: Educate patient on: Condition, Plan of Care For the Purpose of:: To decrease pain, To increase ROM, To improve muscle performance and motor function, To improve ability to perform ADL's, To increase tolerance to activity/condition/position, To improve ability of physical actions for home/community/work/leisure, To improve health of tissue, To decrease soft tissue restriction, To increase flexibility/ROM, To improve ability to perform tasks related to life management Therapeutic Exercise to Include: Strength training, Balance training, Postural training, Active ROM For the Purpose of:: To decrease pain, To increase ROM, To improve muscle performance and motor function, To increase tolerance to activity/condition/position, To improve ability of physical actions for home/community/work/leisure, To improve health of tissue, To decrease soft tissue restriction, To increase flexibility/ROM, To improve ability to perform tasks related to life management TENS: Yes IF ES: Yes Cryotherapy (ice pack, ice massage): Yes Thermo therapy (hot pack): Yes For the Purpose of:: To decrease pain, To increase ROM, To improve health of tissue, To decrease soft tissue restriction This patient was last seen in our office . Pertinent comments regarding their Physical therapy will appear below: Patient was seen for PT Becca for Knee pain for HEP. At this point I will be discontinuing this patient from physical therapy. I would be happy to see this patient again in the future if found appropriate by the physician. Thank you! Jose Rizo, PT, Cert MDT, OCS
== END 2018-09-18 19:00 | disposition home or self-care (01) ==
LOC: PT 11:54
PROVIDERS: Family Provider Family Medicine; PCP Family Medicine; Referring Provider Family Medicine; Visit Provider Family Medicine
DX: M25.561 Pain in right knee (principal)
CPT/HCPCS: 97110; 97162

== ENCOUNTER 2018-10-24 21:17 | Emergency (ER) | payer MEDICAID, SELFPAY ==
[2018-10-24 21:17] VITALS: BP 138/95; PULSE 96; RESP 18; TEMP 37.3; O2SAT 99; BMI 29.0
--- NOTE | 2018-10-24 22:37 | ED.VIS.GEN ---
History of Present Illness Chief Complaint: Back Narrative: Patient is a 38-year-old male who presents with left-sided back pain and right knee pain. He is actually been having the right knee pain for months. He is already had x-rays. He has already done physical therapy although he states this continues to hurt. He also complains of left sided mid back pain for the past 3 days. He was having a little bit of pain but was helping a friend with some yard work and went to move a ladder and his pain has increased since that time. It is worse with palpation or movement. He denies any chest pain shortness of breath numbness tingling weakness. Past Medical History - Allergies and Home Meds Allergies/Adverse Reactions: Allergies calamine Allergy (Verified 10/24/18 21:20) Swelling codeine Allergy (Verified 10/24/18 21:20) Hives perphenazine Allergy (Verified 10/24/18 21:20) Swelling rizatriptan Allergy (Verified 10/24/18 21:20) Anaphylaxis topiramate Allergy (Verified 10/24/18 21:20) Anaphylaxis morphine Adverse Reaction (Verified 10/24/18 21:20) Nausea/Vom/Diarrhea ENVIRONMENTAL Allergy (Uncoded 10/24/18 21:20) Itching Primary Care Physician: Bruno Tim DO [Primary Care Provider] - Past Medical History: - - Bipolar, depression, GERD Surgical History: - - Right foot surgery. Smoking Status: Current every day smoker - Family History Maternal Family History: Reports: Diabetes, Heart Disease, Hypertension, - - Mini stroke Paternal Family History: Reports: - - Father estranged, denies known paternal medical history. Review of Systems All systems negative except as indicated Physical Exam Vital Signs/Narrative: Vital Signs Temp Pulse Resp BP Pulse Ox 10/24/18 21:17 99.1 F 96 18 138/95 H 99 Inital Vital Signs reviewed: Yes General: Well nourished, Well developed Head: Normocephalic Eyes: EOMI ENT: Moist mucous membranes Neck: Supple Cardiovascular: Regular rate, Regular rhythm Respiratory: No distress, CTA bilaterally Abdomen: Soft Back: - - Left-sided posterior paraspinal thoracic tenderness Extremities: - - Active full range of motion x4, no tenderness of the right knee no appreciable effusion no soft tissue swelling no erythema not hot to the touch brisk capillary refill distally with normal sensation to light touch Skin: Normal color Neurological: Alert Diagnostic/Tx/Re-eval - Medical Decision Making Patient was given an Antonio wrap for his right knee. He was also given a prescription for naproxen and advised on supportive care both for his knee pain and thoracic strain. I do not believe any imaging would be of benefit at this time. Patient in agreement with the plan and advised to follow-up as an outpatient. He understands to return for new or worsening symptoms and was discharged home. ED Disposition - Plan for ED Patient: Disposition: Psychiatric Hospital or Unit Diagnosis: Right knee pain, Acute thoracic myofascial strain Instructions: Back Sprain/Strain, KNEE PAIN, Uncertain Cause Prescriptions: Naproxen [Naprosyn] 500 mg PO BID #20 tab Prescription Printed Referrals: Bruno Tim DO [Primary Care Provider] -
[2018-10-24] MEDS: Naproxen 500 MG Tablet PO (22:50)
[2018-10-24 22:51] VITALS: RESP 16
== END 2018-10-24 22:51 | disposition home or self-care (01) ==
PROVIDERS: Emergency Provider Emergency Medicine; Family Provider Family Medicine; PCP Family Medicine
DX: S29.012A Strain of muscle and tendon of back wall of thorax, initial encounter (principal); Z79.899 Other long term (current) drug therapy; K21.9 Gastro-esophageal reflux disease without esophagitis; F32.9 Major depressive disorder, single episode, unspecified; F17.200 Nicotine dependence, unspecified, uncomplicated; Y93.H9 Activity, other involving exterior property and land maintenance, building and construction; Y92.89 Other specified places as the place of occurrence of the external cause
CPT/HCPCS: 99283

== ENCOUNTER → 2018-10-28 08:11 | Outpatient (CLI) | payer MEDICAID, SELFPAY ==
[2018-10-24 21:17] VITALS: BMI 29.0
--- NOTE | 2018-10-28 08:13 | RAD_ITS ---
STUDY: X-RAY - UNILATERAL RIBS ( RIGHT ) WITH CHEST REASON FOR EXAM: Male, 38 years old. Lateral lower rib pain following injury. TECHNIQUE - RIBS: 4 view(s) of the ribs. TECHNIQUE - CHEST: Single PA view of the chest. COMPARISON: Comparison is made with prior study of April 27, 2017. FINDINGS - RIBS: Normal visualized ribs without a demonstrated fracture. FINDINGS - CHEST: The lungs are clear and expanded. There is no demonstrated pleural abnormality. Normal size heart. Normal mediastinum and noe. Normal visualized pulmonary arteries. Normal visualized aortic arch and descending thoracic aorta. Normal visualized thoracic spine. Normal visualized ribs, clavicles, and shoulders. There is no demonstrated abnormality of the visualized soft tissue structures of the upper abdomen. RAD/Ribs Uni Min 3V w/PA Chest IMPRESSION: RIBS: Normal x-ray examination of the ribs. CHEST: Normal x-ray examination of the chest. Electronically Signed: Sarabjit Duke, at 9:05 EDT , Service support ,
== END ==
PROVIDERS: Family Provider Family Medicine; PCP Family Medicine; Referring Provider Physician Assistant; Visit Provider Physician Assistant
DX: S20.211A Contusion of right front wall of thorax, initial encounter (principal)
CPT/HCPCS: 71101

== ENCOUNTER 2019-01-26 18:17 | Emergency (ER) | payer SELFPAY ==
[2018-10-28 08:40] VITALS: BMI 29.0
[2019-01-26 18:19] VITALS: BP 133/96; PULSE 104; RESP 18; TEMP 36.6; O2SAT 98; BMI 27.3
--- NOTE | 2019-01-26 18:24 | ED.DCSUM_ITS ---
History of Present Illness Chief Complaint: Suicidal Informant: Patient Onset: Days Context: Gradual Onset Timing: Continuous Current Severity: Moderate Maximum Severity: Severe Narrative: The patient is a 38-year-old male with medical history significant for bipolar disorder, depression, and anxiety who presents to the emergency department with increasing suicidal thoughts. The patient states for the past 4 days, he has been increasingly anxious and increasingly depressed. He states he has had intrusive thoughts of self-harm. He states that he would run in front of a train. The patient has had prior suicide attempt before. He denies any drug or alcohol use. He does admit to medication noncompliance. He states that around the holidays, his symptoms seem to get worse. Prior similar symptoms: Yes Recent Illness/Hospitalization: No Past Medical History - Allergies and Home Meds Allergies/Adverse Reactions: Allergies calamine Allergy (Verified 01/26/19 18:29) Swelling codeine Allergy (Verified 01/26/19 18:29) Hives perphenazine Allergy (Verified 01/26/19 18:29) Swelling rizatriptan Allergy (Verified 01/26/19 18:29) Anaphylaxis topiramate Allergy (Verified 01/26/19 18:29) Anaphylaxis morphine Adverse Reaction (Verified 01/26/19 18:29) Nausea/Vom/Diarrhea ENVIRONMENTAL Allergy (Uncoded 01/26/19 18:29) Itching Primary Care Physician: Bruno Tim DO [Primary Care Provider] - Prior records reviewed: Yes Past Medical History: - - Bipolar disorder, anxiety Surgical History: noncontributory, - - Right foot surgery. Smoking Status: Current every day smoker - Family History Maternal Family History: Family History (Last Updated 10/28/18 @ 08:40 by Mallory Bella) Mother Hypertension Cancer Family History: Reports: Diabetes, Heart Disease, Hypertension, - - Mini stroke Paternal Family History: Family History (Last Updated 10/28/18 @ 08:40 by Mallory Bella) Mother Hypertension Cancer Family History: Reports: - - Father estranged, denies known paternal medical history. Review of Systems General: Denies: Chills, Fever, Sweats Eyes: Denies: Visual changes - bilaterally, Diplopia ENT: Denies: Rhinorrhea, Sore throat Cardiovascular: Denies: Chest pain, Palpitations Respiratory: Denies: Dyspnea, Cough, Dyspnea on exertion Gastrointestinal: Denies: Abdominal pain, Nausea, Vomiting, Diarrhea, Melena, Hematochezia Genitourinary: Denies: Dysuria, Hematuria, Frequency Musculoskeletal: Denies: Back pain, Extremity Pain Skin: Denies: Rash, Wounds Neurological: Denies: Headache, Weakness, Numbness Psych: Reports: Anxiety, Suicidal thoughts, Suicidal ideations Physical Exam Vital Signs/Narrative: Vital Signs Temp Pulse Resp BP Pulse Ox 01/26/19 18:19 98 F 104 H 18 133/96 H 98 Inital Vital Signs reviewed: Yes General: Well nourished, Well developed, No Acute Distress Head: Normocephalic, Atraumatic Eyes: Perrl, EOMI ENT: Moist mucous membranes, No rhinorrhea Neck: Supple, Nontender Cardiovascular: Regular rate, Regular rhythm, No murmurs Respiratory: No distress, CTA bilaterally, Chest nontender Abdomen: Soft, Nontender, Nondistended, Normal bowel sounds Back: Nontender, Normal Inspection Extremities: Nontender, No edema Skin: Normal color, No rash Neurological: Alert, Oriented x3, Cranial nerves II-XII grossly intact, Normal Strength, Normal Sensation Psychological: Normal affect, Normal Mood Diagnostic/Tx/Re-eval Abnormal Lab Results 01/26/19 01/26/19 01/26/19 18:45 18:45 18:45 WBC 11.2 H RBC 5.59 Hgb 17.3 H Hct 49.3 MCV 88.2 MCH 30.9 MCHC 35.1 RDW Std Deviation 40.5 RDW Coeff of Martin 12.5 Plt Count 258 MPV 9.6 Immature Gran % (Auto) 0.400 Neut % (Auto) 63.8 Lymph % (Auto) 26.0 [place] % (Auto) 6.8 Eos % (Auto) 2.6 Baso % (Auto) 0.4 Absolute Neuts (auto) 7.1 Absolute Lymphs (auto) 2.90 Nucleated RBC % 0 Sodium 139 Potassium 3.9 Chloride 109 H Carbon Dioxide 24.0 Anion Gap 6 BUN 14 Creatinine 1.16 Estim Creat Clear Calc 92.91 Est GFR (MDRD) Af Amer 89 Est GFR (MDRD) Non-Af 74 BUN/Creatinine Ratio 12.1 Glucose 136 H Calcium 8.8 Total Bilirubin Direct Bilirubin AST ALT Alkaline Phosphatase Total Protein Albumin Globulin Urine Opiates Screen Urine Methadone Screen Ur Barbiturates Screen Ur Phencyclidine Scrn Ur Amphetamines Screen U Methamphetamin-MDMA U Benzodiazepines Scrn Urine Cocaine Screen U Cannabinoids Screen Ur Drug Screen Comment Ethyl Alcohol 3.0 01/26/19 01/26/19 18:45 18:59 WBC RBC Hgb Hct MCV MCH MCHC RDW Std Deviation RDW Coeff of Martin Plt Count MPV Immature Gran % (Auto) Neut % (Auto) Lymph % (Auto) [place] % (Auto) Eos % (Auto) Baso % (Auto) Absolute Neuts (auto) Absolute Lymphs (auto) Nucleated RBC % Sodium Potassium Chloride Carbon Dioxide Anion Gap BUN Creatinine Estim Creat Clear Calc Est GFR (MDRD) Af Amer Est GFR (MDRD) Non-Af BUN/Creatinine Ratio Glucose Calcium Total Bilirubin 0.30 Direct Bilirubin 0.12 AST 16 ALT 30 Alkaline Phosphatase 59 Total Protein 7.6 Albumin 4.3 Globulin 3.3 Urine Opiates Screen NEGATIVE Urine Methadone Screen NEGATIVE Ur Barbiturates Screen NEGATIVE Ur Phencyclidine Scrn NEGATIVE Ur Amphetamines Screen NEGATIVE U Methamphetamin-MDMA NEGATIVE U Benzodiazepines Scrn NEGATIVE Urine Cocaine Screen NEGATIVE U Cannabinoids Screen NEGATIVE Ur Drug Screen Comment Ethyl Alcohol - Medical Decision Making EKG was obtained on patient arrival. It was sinus rhythm without acute ischemia. The patient was given oral Ativan. He was observed. He underwent medical clearance and his labs are unremarkable. With the patient's suicidal ideation with plan, he will be evaluated by crisis. At this point, he is medically cleared for psychiatric hospitalization. Impression 1. Suicidal ideation with plan ED Disposition - Plan for ED Patient: Referrals: Bruno Tim DO [Primary Care Provider] -
--- NOTE | 2019-01-26 18:31 | ED.RN ---
SITTER AT BEDSIDE
[2019-01-26 18:57] LABS: Absolute Neutrophil Count 7.1 X10^3/uL (2.0-7.7); Basophil# 0.05 X10^3/uL; Basophil% 0.4 % (0-1); Eosinophil# 0.29 X10^3/uL; Eosinophils% 2.6 % (0-5); Hematocrit 49.3 % (40-54); Hemoglobin 17.3 g/dL (13.0-16.5); Mean Corp Hgb Conc 35.1 g/dL (32-36); Mean Corpuscular Hgb 30.9 pg (27.0-32.0); Mean Corpuscular Volume 88.2 fL (80-94); Mean Platelet Vol. 9.6 fl (6.2-12.0); Monocyte# 0.76 X10^3/uL; Monocyte% 6.8 % (0-10); NRBC Flagged by Analyzer 0 % (0-5); Neutrophil # 7.13 X10^3/uL (2.7-7.7); Neutrophil % 63.8 % (47-70); Platelet Count 258 K/mm3 (150-450); RBC Distribution Width CV 12.5 % (11.6-14.6); RBC Distribution Width SD 40.5 fl (35.1-43.9); Red Blood Count 5.59 M/mm3 (4.6-6.2); White Blood Count 11.2 K/mm3 (4.4-11.0)
--- NOTE | 2019-01-26 18:59 | EKG12_ITS ---
Test Reason : MHC Blood Pressure : / mmHG Vent. Rate : 081 BPM Atrial Rate : 081 BPM P-R Int : 134 ms QRS Dur : 086 ms QT Int : 350 ms P-R-T Axes : 056 048 044 degrees QTc Int : 406 ms Normal sinus rhythm Normal ECG Confirmed by ROSEMARIE PERRY, ROBERT ([id number]), acquisitions editor NAKUL BIRD ([id number]) on 02/01/2019 11:50:08 AM Referred By: AYDIN Confirmed By:JILLIAN HOUSTON MD
--- NOTE | 2019-01-26 19:07 | CM.ED ---
SOCIAL WORK CALL TO CRISIS TO UPDATE ON SELF-PAY PATIENT, SPOKE WITH JESS. JESS TO BE UPDATED ONCE PATIENT IS MEDICALLY CLEARED TO COMPLETE ASSESSMENT. Mable ZUNIGA, GLYCERINE PLANT OPERATOR, RESEARCH ANTHROPOLOGIST.
[2019-01-26 19:09] LABS: Anion Gap 6 (5-15); BUN 14 mg/dL (7-18); BUN/Creat Ratio 12.1 RATIO (10-20); Calcium,Total 8.8 mg/dL (8.5-10.1); Chloride 109 mmol/L (98-107); Creatinine, Serum 1.16 mg/dL (0.70-1.30); EST Glomerular Filtration Rate 74 mL/min (>60); Est Glom Filt Rate - Afr Amer 89 mL/min (>60); Estimated Creatinine Clearance 92.91 ml/min; Glucose 136 mg/dL (74-106); Potassium 3.9 mmol/L (3.5-5.1); Sodium Level 139 mmol/L (136-145)
[2019-01-26] MEDS: LORazepam 1 MG Tablet 2 MG PO (19:10)
[2019-01-26 19:13] LABS: Amphetamine Urine VISTA NEGATIVE (<1000 ng/mL); Barbiturate Urine VISTA NEGATIVE (< 200 ng/mL); Benzodiazepine Urine VISTA NEGATIVE (< 200 ng/mL); Cocaine Urine VISTA NEGATIVE (< 300 ng/mL); Ecstacy Urine VISTA NEGATIVE (< 500 ng/mL); Methadone Urine VISTA NEGATIVE (< 300 ng/mL); PCP Urine VISTA NEGATIVE (< 25 ng/mL); THC Urine VISTA NEGATIVE (< 50 ng/mL); Vista UDS pH Range 6
[2019-01-26 19:30] LABS: AST(SGOT) 16 U/L (15-37); Alanine Aminotransfer ALT/SGPT 30 U/L (16-61); Albumin, Serum 4.3 g/dL (3.2-5.0); Alkaline Phosphatase 59 U/L (45-117); Bilirubin, Direct 0.12 mg/dL (0.00-0.30); Globulin 3.3 g/dL (2.2-4.2); Protein, Total 7.6 g/dL (6.4-8.2)
[2019-01-26 19:41] VITALS: RESP 16
--- NOTE | 2019-01-26 19:50 | ED.RN ---
PT USED PHONE TO JANINE PARENTS. SITTING UP IN BED AT THIS TIME BEING COOPERATIVE AND CALM.
[2019-01-26 20:00] VITALS: PULSE 16
--- NOTE | 2019-01-26 20:12 | ED.RN ---
CALLED CRISIS TO SEE THIS PT, JACQUE IS SOFTWARE PUBLISHER
--- NOTE | 2019-01-26 20:55 | ED.RN ---
CRISIS ON SITE
[2019-01-26 21:01] VITALS: PULSE 14
--- NOTE | 2019-01-26 21:52 | ED.RN ---
CRISIS AT BEDSIDE
[2019-01-26 22:10] VITALS: BP 126/86; PULSE 90; RESP 16; O2SAT 95
[2019-01-27] VITALS (15 sets, daily range): BP systolic 105–132; BP diastolic 63–94; PULSE 80–101; RESP 14–18; TEMP 36.4; O2SAT 93–99
--- NOTE | 2019-01-27 01:48 | ED.RN ---
JOSESITO CALLED, TO REQUEST EKG ON THIS PT, I ADVISED HER IT WAS DONE AND FAXED IT TO HER
[2019-01-27] MEDS: busPIRone 5 MG Tablet 10 MG PO ×2 (06:23→19:39)
--- NOTE | 2019-01-27 07:46 | ED.RN ---
TALKED TO [facility] THEY ARE JUST WAITING ON A BED FOR THE PATIENT
[2019-01-27] MEDS: Pantoprazole Sodium 40 MG Tablet PO ×2 (10:25→22:22)
[2019-01-27] MEDS: Triamcinolone Acetonide 40 MG/ML Vial IM (11:28)
[2019-01-27] MEDS: DiphenhydrAMINE 25 MG Capsule PO (11:28)
--- NOTE | 2019-01-27 13:17 | ED.RN ---
pt resting in bed with eyes closed and no needs at this time. room darkened and pt resting well
--- NOTE | 2019-01-27 17:15 | ED.RN ---
[facility] and pt aggitated and angry saying, cant i just leave then and take my meds? stated, they had them locked up so i didnt have them so thats why i said all those things! i have my meds now so why do i have to wait ?!
--- NOTE | 2019-01-27 17:30 | ED.RN ---
adrian came to door and reported that pt snapped phone in half and threw it on the floor. phone in several pieces and adrian said that was a cut on his hand when did it though pt keeping arms to self and unwilling to show rn. martir rn aware and talking with pt over wait time. pt showed hand to nurse then and superficial cuts obs to lt hand between thumb and finger. meal tray ordered. brent special police officer aware and will make rounds past room.
--- NOTE | 2019-01-27 17:45 | ED.RN ---
pt refusing to take any meds now. sitting in bed with arms crossed and wont look at nurse. stated, whats the point? im not taking em.
--- NOTE | 2019-01-27 18:35 | ED.RN ---
pt c/o rt chest discomfort to sitter but stated, so what. im not going to let them do anything for it anyways. pt now sleeping with no discomforts obs. will monitor
[2019-01-27] MEDS: LORazepam 1 MG Tablet 2 MG PO (19:39)
--- NOTE | 2019-01-27 20:13 | ED.RN ---
pt cooperative at this time. ate 100% of dinner and requested medicine. took medicine with no issue. pt aware of previous behavior and understands that he will be here over night. continues to talk to 1:1 respectfully. denies needing anything at this time.
[2019-01-28] VITALS (12 sets, daily range): BP systolic 113–133; BP diastolic 78–88; PULSE 82–84; RESP 14–16; TEMP 36.6–37.1; O2SAT 98–100
--- NOTE | 2019-01-28 05:39 | ED.RN ---
RENEE WITH [facility] CALL BACK AFTER 914, AFTER THEIR MORNING MEETING. I'M NOT SURE WHERE HE IS AT IN THE WAITING LIST
[2019-01-28] MEDS: busPIRone 5 MG Tablet 10 MG PO (06:25)
--- NOTE | 2019-01-28 08:04 | ED.RN ---
PER PATRIC WITH CRISIS NO UPDATE ON [facility]
[2019-01-28] MEDS: Pantoprazole Sodium 40 MG Tablet PO (09:56)
--- NOTE | 2019-01-28 11:23 | ED.RN ---
JACQUE WITH CRISIS PT NEEDS RE EVALUATED BECAUSE OF THE LENGTH OF TIME HE HAS BEEN HERE. SHE IS ALSO GOING TO CHECK STATUS WITH [facility]
== END 2019-01-28 15:02 ==
PROVIDERS: Emergency Provider Emergency Medicine; Family Provider Family Medicine; PCP Family Medicine
DX: F31.9 Bipolar disorder, unspecified (principal); F41.9 Anxiety disorder, unspecified; R45.851 Suicidal ideations; Z91.14 Patient's other noncompliance with medication regimen; F17.200 Nicotine dependence, unspecified, uncomplicated; Z79.899 Other long term (current) drug therapy; Z91.5 Personal history of self-harm
CPT/HCPCS: 36415; 80048; 80076; 80307; 80320; 85025; 93005; 96372; 99285; G0480

== ENCOUNTER 2019-02-27 17:30 | Emergency (ER) | payer MEDICAID, SELFPAY ==
[2019-02-27 17:30] VITALS: BP 136/92; PULSE 92; RESP 16; TEMP 36.7; O2SAT 97; BMI 28.6
--- NOTE | 2019-02-27 17:51 | ED.DCSUM_ITS ---
- ER Visit Summary Date of Service: 02/27/19 Chief Complaint: Dizziness, nausea, vomiting, headache History of Present Illness: The patient is a 38 M who presents with dizziness, nausea, vomiting, headache that began today. Patient states his dizziness feels like the room is spinning. Patient states this is worse when he sits up or stands up. Patient states that dizziness began before the nausea and vomiting. Patient states he has been vomiting stomach contents. Patient denies any hematemesis or coffee-ground emesis. Patient denies any melena or hematochezia. Patient also admits to a sore throat and some postnasal drainage. Patient also admits to some right upper quadrant abdominal pain. Patient admits to subjective chills. Physical Examination: Vital signs are stable. Patient is afebrile. Patient is in no acute distress. Pupils are equal, round, and reactive to light bilaterally. Extraocular muscles are intact. There is nystagmus with right lateral gaze. This did reproduce his dizziness. Oral mucosa is pink and moist. Neck is supple. Trachea is midline. There is no JVD. Heart was regular rate and rhythm. Lungs are clear and equal bilaterally. Abdomen is soft. Bowel sounds are normal. There is right upper quadrant tenderness. There is no marcelo ound or guarding noted. Cranial nerves II through XII are intact. There are no focal motor or sensory deficits noted. Test Results: CBC, comprehensive metabolic profile, and urinalysis were obtained were all normal. CT scan of the brain was obtained. There is no acute intracranial abnormality. This was interpreted by the radiologist and reviewed by myself. Emergency Department Course and Treatment: Patient was given IV fluids. Patient was given a dose of Valium and Zofran initially. Patient states his nausea has persisted. Patient also complained of a headache. Patient was given a dose of Toradol and a repeat dose of Zofran. Patient felt better on reevaluation. Patient had no further dizziness. Patient was able to turn his head as well as his eyes to the right without any dizziness. Patient was given prescriptions for Valium and Zofran. Patient was instructed to follow-up with his primary care physician in 5 to 7 days. Patient understood and was agreeable with the plan. All questions were answered. Disposition: Discharge home Impression: Vertigo This note was generated with [employer] software. It may contain incorrect words, spelling, and punctuation that were not noted in review of the chart prior to signing ED Disposition - Plan for ED Patient: Disposition: Home or Assisted Living Diagnosis: Vertigo Instructions: VERTIGO, Unspecified Prescriptions: Diazepam [Valium] 2 mg PO TID PRN PRN #10 tab PRN Reason: Vertigo Prescription Printed Ondansetron [Zofran Odt] 4 mg PO Q8H PRN PRN #10 tab PRN Reason: Nausea Prescription Printed Referrals: Bruno Tim DO [Primary Care Provider] - 3-5 Days
--- NOTE | 2019-02-27 17:53 | CT_ITS ---
STUDY: CT BRAIN WITHOUT CONTRAST REASON FOR EXAM: Male, 38 years old. Headache dizziness RADIATION DOSAGE (If Supplied By Facility): CTDIvol = ( 44.99 ) mGy, DLP = ( 812.98 ) mGycm TECHNIQUE: Transaxial CT imaging of the brain was performed without administration of intravenous contrast material. Individualized dose optimization techniques were used for this CT. COMPARISON: No relevant priors. FINDINGS: Brain parenchyma is without focal lesions, mass effect, acute intracranial hemorrhage, extra parenchymal fluid collections, hydrocephalus or herniation. The skull is intact. Paranasal sinuses are clear. CT/Brain/Head without Contrast IMPRESSION: 1. Normal CT brain. Electronically Signed: Mere William, at 18:41 EST Tel , Service support ,
[2019-02-27] MEDS: Ondansetron 4 MG/2 ML Vial IV ×2 (18:04→19:48)
[2019-02-27] MEDS: 0.9% Normal Saline 1,000 ML 1000 ML IV (18:04)
[2019-02-27] MEDS: diazePAM 5 MG Tablet 2.5 MG PO (18:06)
[2019-02-27 18:08] LABS: Absolute Lymphocyte Count 2.16 X10^3/uL (0.83-4.51); Absolute Neutrophil Count 7.4 X10^3/uL (2.0-7.7); Basophil# 0.05 X10^3/uL; Basophil% 0.5 % (0-1); Eosinophil# 0.12 X10^3/uL; Eosinophils% 1.1 % (0-5); Hematocrit 48.5 % (40-54); Lymphocyte # 2.16 X10^3/ul (4.0); Lymphocyte % 20.2 % (19-41); Mean Corp Hgb Conc 35.1 g/dL (32-36); Mean Corpuscular Hgb 31.2 pg (27.0-32.0); Mean Platelet Vol. 8.9 fl (6.2-12.0); Monocyte# 0.87 X10^3/uL; Monocyte% 8.1 % (0-10); NRBC Flagged by Analyzer 0 % (0-5); Neutrophil # 7.41 X10^3/uL (2.7-7.7); Neutrophil % 69.2 % (47-70); Platelet Count 238 K/mm3 (150-450); RBC Distribution Width CV 12.2 % (11.6-14.6); RBC Distribution Width SD 39.6 fl (35.1-43.9); Red Blood Count 5.45 M/mm3 (4.6-6.2); White Blood Count 10.7 K/mm3 (4.4-11.0)
[2019-02-27 18:16] LABS: ALB/GLOB Ratio 1.3 RATIO (0.9-2.4); AST(SGOT) 18 U/L (15-37); Alanine Aminotransfer ALT/SGPT 37 U/L (16-61); Albumin, Serum 4.4 g/dL (3.2-5.0); Alkaline Phosphatase 55 U/L (45-117); Anion Gap 5 (5-15); BUN 14 mg/dL (7-18); BUN/Creat Ratio 13.3 RATIO (10-20); Calcium,Total 9.5 mg/dL (8.5-10.1); Chloride 109 mmol/L (98-107); Creatinine, Serum 1.05 mg/dL (0.70-1.30); EST Glomerular Filtration Rate 83 mL/min (>60); Est Glom Filt Rate - Afr Amer 100 mL/min (>60); Estimated Creatinine Clearance 108.73 ml/min; Globulin 3.5 g/dL (2.2-4.2); Glucose 100 mg/dL (74-106); Lipase 117 U/L (73-393); Protein, Total 7.9 g/dL (6.4-8.2); Sodium Level 141 mmol/L (136-145)
[2019-02-27 18:26] VITALS: BP 122/92; BP 133/102; BP 133/88; PULSE 102; PULSE 78; PULSE 85
[2019-02-27 19:04] LABS: Bacteria 0 SEEN /hpf (None Seen); Mucous, Urine 0 SEEN /hpf (<or=2+); Red Blood Cells-Urine 0 SEEN /hpf (0-5); White Blood Cells 0 SEEN /hpf (0-5)
[2019-02-27 19:14] LABS: Color, Urine Yellow (Yellow); Glucose, Dipstick Normal (Normal); Ketone-Dipstick 5 mg/dl (Negative); Leukocyte Esterase-Dipstick Negative /ul (Negative); Nitrite-Dipstick Negative (Negative); Occult Blood-Urine Negative /ul (Negative); Protein-Dipstick 15 mg/dl (Negative); Urine Bilirubin Dipstick Negative (Negative); Urine Clarity Sl. Cloudy (Clear); Urine Urobilinogen 1 mg/dl (Normal); Urine pH 6.5 (5.0 - 8.0)
[2019-02-27 19:20] LABS: Amorphous Sediment 1+ URATE; Squamous Epithelial Cells - UA 0-5 SEEN /hpf (0-5)
[2019-02-27] MEDS: Ketorolac 30 MG/ML Syringe IV (19:49)
[2019-02-27 19:50] VITALS: BP 123/90; PULSE 77; RESP 13; O2SAT 96
[2019-02-27 20:34] VITALS: BP 120/87; PULSE 72; RESP 24; O2SAT 95
== END 2019-02-27 20:41 | disposition home or self-care (01) ==
PROVIDERS: Emergency Provider Emergency Medicine; PCP Family Medicine
DX: R42 Dizziness and giddiness (principal); R11.2 Nausea with vomiting, unspecified; R10.11 Right upper quadrant pain; R30.0 Dysuria; R51 Headache; J02.9 Acute pharyngitis, unspecified; R09.82 Postnasal drip; K21.9 Gastro-esophageal reflux disease without esophagitis; F32.9 Major depressive disorder, single episode, unspecified; F41.9 Anxiety disorder, unspecified; Z79.899 Other long term (current) drug therapy
CPT/HCPCS: 70450; 80053; 81001; 83690; 85025; 96361; 96374; 96375; 96376; 99284; J7030; A4216; J2405

== ENCOUNTER → 2019-03-08 16:16 | Outpatient (CLI) | payer MEDICAID, SELFPAY ==
[2019-02-27 17:30] VITALS: BMI 28.6
[2019-03-08 17:54] LABS: Thyroid Stim Hormone (TSH) 0.94 uIU/mL (0.358-3.74)
[2019-03-11 09:14] LABS: ANTINUCLEAR ANTIBODIES DIRECT Negative (Negative)
[2019-03-12 19:30] LABS: C1 EST Inhibitor, Functional 83 (.); Thyroid Peroxidase AB 10 IU/mL (0-34)
== END ==
PROVIDERS: PCP Family Medicine; Visit Provider Family Medicine
DX: T78.3XXA Angioneurotic edema, initial encounter (principal)
CPT/HCPCS: 36415; 84443; 86038; 86161; 86225; 86235; 86376

== ENCOUNTER 2019-06-20 09:56 | Observation (INO) | payer MEDICAID, SELFPAY ==
[2019-03-19 08:10] VITALS: BMI 28.0
[2019-06-20 09:57] VITALS: BP 137/92; PULSE 75; RESP 18; TEMP 36.3; O2SAT 99; BMI 30.2
--- NOTE | 2019-06-20 10:22 | ED.VIS.GEN ---
History of Present Illness Chief Complaint: Allergic Reaction Informant: Patient Onset: Yesterday Maximum Severity: Mild Narrative: Patient with history basically of bipolar disorder and he indicates allergies that cause throat swelling, He complains of fullness in his throat trouble swallowing mildly that began last night he went to bed feeling fine this has occurred multiple times in the past he seen multiple outpatient providers including ENT and allergy, he indicates there is a concern that he may get the swelling related to food or environmental allergens, it was recommended to him that he have a tonsillectomy and have allergy shots but he declined all of the above. He has had no fever no cough no exposure to coronavirus eating and drinking well no other complaints Past Medical History - Allergies and Home Meds Allergies/Adverse Reactions: Allergies calamine Allergy (Verified 06/20/19 09:56) Swelling codeine Allergy (Verified 06/20/19 09:56) Hives perphenazine Allergy (Verified 06/20/19 09:56) Swelling rizatriptan Allergy (Verified 06/20/19 09:56) Anaphylaxis topiramate Allergy (Verified 06/20/19 09:56) Anaphylaxis morphine Adverse Reaction (Verified 06/20/19 09:56) Nausea/Vom/Diarrhea ENVIRONMENTAL Allergy (Uncoded 06/20/19 09:56) Itching wheat/rye bread Allergy (Uncoded 06/20/19 09:56) Other Primary Care Physician: Bruno Tim DO [Primary Care Provider] - Past Medical History: - - Allergic reaction throat swelling bipolar disorder all medical conditions are stable Surgical History: noncontributory, - - Right foot surgery. Smoking Status: Former smoker - Family History Maternal Family History: Family History (Last Updated 10/28/18 @ 08:40 by Mallory Bella) Mother Hypertension Cancer Family History: Reports: Diabetes, Heart Disease, Hypertension, - - Mini stroke Paternal Family History: Family History (Last Updated 10/28/18 @ 08:40 by Mallory Bella) Mother Hypertension Cancer Family History: Reports: - - Father estranged, denies known paternal medical history. Review of Systems General: Denies: Chills, Fever, Sweats Eyes: Denies: Visual changes - bilaterally, Diplopia ENT: Reports: Sore throat. Denies: Rhinorrhea Cardiovascular: Denies: Chest pain, Palpitations Respiratory: Denies: Dyspnea, Cough, Dyspnea on exertion Gastrointestinal: Denies: Abdominal pain, Nausea, Vomiting, Diarrhea, Melena, Hematochezia Genitourinary: Denies: Dysuria, Hematuria, Frequency Musculoskeletal: Denies: Back pain, Extremity Pain Skin: Denies: Rash, Wounds Neurological: Denies: Headache, Weakness, Numbness Physical Exam Vital Signs/Narrative: Vital Signs Temp Pulse Resp BP Pulse Ox 06/20/19 09:57 97.4 F L 75 18 137/92 H 99 General: Well nourished, Well developed, No Acute Distress, - - Patient is in no distress resting comfortably vital signs are normal he has obvious uvulitis the rest of his airways and airway tissue pharynx are normal tongue is normal for the mouth is normal lips are normal mucosa is normal otherwise he is able to speak and breathe and swallow normally his neck is supple lungs are clear heart tones are normal rest the skin exam and the medical exam are complete unremarkable as documented on this chart Head: Normocephalic, Atraumatic Eyes: Perrl, EOMI ENT: Moist mucous membranes, No rhinorrhea Neck: Supple, Nontender Cardiovascular: Regular rate, Regular rhythm, No murmurs Respiratory: No distress, CTA bilaterally, Chest nontender Abdomen: Soft, Nontender, Nondistended, Normal bowel sounds Back: Nontender, Normal Inspection Extremities: Nontender, No edema Skin: Normal color, No rash Neurological: Alert, Oriented x3, Cranial nerves II-XII grossly intact, Normal Strength, Normal Sensation Psychological: Normal affect, Normal Mood Diagnostic/Tx/Re-eval - Medical Decision Making He has uvulitis I explained all the above to the patient he indicates he is had this in the past sometimes he gets it 5 times a year he is not describing any type of exposures of any kind he indicates he has allergies to multiple food including wheat multiple medications but has had no exposures to them none of his medications are new he usually indicates she is treated with something like Benadryl he is discharged home he has seen ENT and allergy in the past At this time we did provide him with Kenalog IM, azithromycin p.o. Benadryl p.o. he was observed he had no further issues he does not wish to be admitted he feels fine he wants to go home he will drink cold liquids follow-up with ENT and/or allergy and return for change in symptoms he understands the potential severe complications that could progress should this go beyond uvulitis he states he it never does and well resolve So prior to him going home we tried an oral challenge with some Benadryl tablets he could not take that he vomited them back up, we then started an IV gave him IV screening labs, IV meds went back to reassess him he is resting comfortable in the bed he speaking full sentences there is no stridor or drooling or any sign of airway compromise but he does not believe he can take pills by mouth and as result I do not believe he would do well as an outpatient and he indicates he is feeling slightly better with IV meds will require admission for further management and observation spoke with the hospitalist and they agree he is admitted to PCU Admit stable Final impression is uvulitis mild trouble swallowing ED Disposition - Plan for ED Patient: Diagnosis: Uvulitis Prescriptions: Azithromycin 250 mg PO DAILY #4 tab Prescription Printed DiphenhydrAMINE [Benadryl] 25 mg PO TID PRN #10 cap Prescription Printed Referrals: Bruno Tim DO [Primary Care Provider] -
[2019-06-20] MEDS: Triamcinolone Acetonide 40 MG/ML Vial IM (10:41)
--- NOTE | 2019-06-20 10:49 | RAD_ITS ---
STUDY: X-RAY CHEST REASON FOR EXAM: Male, 38 years old. C/O SWOLLEN THROAT FROM ALLERGIC REACTION TO UNK SOURCE TECHNIQUE: Single AP portable view of the chest. COMPARISON: April 27, 2017 FINDINGS: The lungs are clear and expanded. There is no demonstrated pleural abnormality. Normal size heart. Normal mediastinum and noe. Normal visualized pulmonary arteries. Normal visualized aortic arch and descending thoracic aorta. Normal visualized thoracic spine. Normal visualized ribs, clavicles, and shoulders. There is no demonstrated abnormality of the visualized soft tissue structures of the upper abdomen. RAD/Chest 1 View (Portable) IMPRESSION: Normal x-ray examination of the chest. Electronically Signed: Isaias Haywood MD at 11:51 EDT , Service support ,
[2019-06-20] MEDS: MethylPREDNISolone 125 MG/2 ML Vial IV (10:56)
[2019-06-20] MEDS: DiphenhydrAMINE 50 MG/ML Syringe IV (10:56)
[2019-06-20] MEDS: Famotidine 200 MG/20 ML MDV 20 MG in 0.9% Normal Saline (Pres. free 8 ML 300 MG IV (11:23)
[2019-06-20] MEDS: Ondansetron 4 MG/2 ML Vial IV (11:23)
[2019-06-20 11:37] LABS: Absolute Lymphocyte Count 1.77 X10^3/uL (0.83-4.51); Absolute Neutrophil Count 4.2 X10^3/uL (2.0-7.7); Basophil# 0.04 X10^3/uL; Basophil% 0.6 % (0-1); Eosinophil# 0.32 X10^3/uL; Eosinophils% 4.5 % (0-5); Hematocrit 45.9 % (40-54); Hemoglobin 15.9 g/dL (13.0-16.5); Lymphocyte # 1.77 X10^3/ul (4.0); Mean Corp Hgb Conc 34.6 g/dL (32-36); Mean Corpuscular Hgb 30.8 pg (27.0-32.0); Mean Corpuscular Volume 88.8 fL (80-94); Monocyte# 0.69 X10^3/uL; Monocyte% 9.8 % (0-10); NRBC Flagged by Analyzer 0 % (0-5); Neutrophil # 4.22 X10^3/uL (2.7-7.7); Neutrophil % 59.7 % (47-70); Platelet Count 250 K/mm3 (150-450); RBC Distribution Width CV 12.7 % (11.6-14.6); RBC Distribution Width SD 41.1 fl (35.1-43.9); Red Blood Count 5.17 M/mm3 (4.6-6.2); White Blood Count 7.1 K/mm3 (4.4-11.0)
[2019-06-20 11:56] LABS: Anion Gap 7 (5-15); BUN 13 mg/dL (7-18); BUN/Creat Ratio 13.1 RATIO (10-20); Calcium,Total 8.9 mg/dL (8.5-10.1); Chloride 109 mmol/L (98-107); Creatinine, Serum 0.99 mg/dL (0.70-1.30); EST Glomerular Filtration Rate 88 mL/min (>60); Est Glom Filt Rate - Afr Amer 107 mL/min (>60); Estimated Creatinine Clearance 115.32 ml/min; Glucose 104 mg/dL (74-106); Potassium 4.1 mmol/L (3.5-5.1); Sodium Level 141 mmol/L (136-145)
[2019-06-20 12:20] VITALS: BP 142/90; PULSE 107; RESP 16; TEMP 36.7; O2SAT 97
--- NOTE | 2019-06-20 12:39 | HP.PCM_ITS ---
History of Present Illness Date of Admission: 06/20/19 Chief Complaint: throat swelling The patient is a 38 year old M with a PMH of bipolar disorder and depression. He was admitted with a complaint of difficulty swallowing and throat swelling. Symptoms started morning of admission. He had difficulty swallowing but denied any shortness of breath, wheezing or rhonchi or any fever or chills. Patient states he has had symptoms like this before and they usually resolve with use of his EpiPen but he does not like using it because it makes his heart race and makes him feel uncomfortable. On admission in the ED, vitals were stable. He was saturating at 99% on room air and chemistry was unremarkable as well as hematology was unremarkable. Chest x-ray showed no acute cardiopulmonary process. Patient was given IV Benadryl and Solu-Medrol also in the ED. Plan was to discharge him home but he subsequently still could not swallow even water in the ED and so decision was made to admit him for overnight monitoring. Soft tissue neck CT was ordered and was pending.[] Past Medical History Past Medical History (Chronic Problems): Chronic Problems (Last Updated 10/28/18 @ 08:40 by Mallory Bella) Anxiety and depression (Chronic) Acid reflux disease (Chronic) Bipolar disorder, unspecified (Chronic) Depression (Chronic) GERD with esophagitis (Chronic) Medical History: Medical History (Last Updated 10/28/18 @ 08:40 by Mallory Bella) Acid reflux disease (Chronic) K21.9 Bipolar disorder, unspecified (Chronic) F31.9 Depression (Chronic) F32.9 Allergies calamine Allergy (Verified 06/20/19 09:56) Swelling codeine Allergy (Verified 06/20/19 09:56) Hives perphenazine Allergy (Verified 06/20/19 09:56) Swelling rizatriptan Allergy (Verified 06/20/19 09:56) Anaphylaxis topiramate Allergy (Verified 06/20/19 09:56) Anaphylaxis morphine Adverse Reaction (Verified 06/20/19 09:56) Nausea/Vom/Diarrhea ENVIRONMENTAL Allergy (Uncoded 06/20/19 09:56) Itching wheat/rye bread Allergy (Uncoded 06/20/19 09:56) Other Home Medications: Ambulatory Orders Medication Instructions Recorded Omeprazole [Prilosec] 40 mg PO BID 03/08/13 Epi Pen (for allergic rxn) 0.3 mg IM X1 PRN 08/22/14 busPIRone [Buspar] 10 mg PO TID 06/05/18 Naproxen [Naprosyn] 500 mg PO BID #20 tab 10/24/18 Citalopram [Celexa] 20 mg PO DAILY 02/27/19 Diazepam [Valium] 2 mg PO TID PRN PRN #10 tab 02/27/19 Lamotrigine 150 mg PO DAILY 02/27/19 Ondansetron [Zofran Odt] 4 mg PO Q8H PRN PRN #10 tab 02/27/19 Azithromycin 250 mg PO DAILY #4 tab 06/20/19 DiphenhydrAMINE [Benadryl] 25 mg PO TID PRN #10 cap 06/20/19 Surgical History: noncontributory, - - Right foot surgery. Psychiatric History: Anxiety Lives: Alone Smoking Status: Former smoker - quit ~ 3 months ago Alcohol: Occasional Drugs: None - *Family History Maternal Family History: Family History (Last Updated 10/28/18 @ 08:40 by Mallory Bella) Mother Hypertension Cancer History Items: Diabetes, Heart Disease, Hypertension, - - Mini stroke Paternal Family History: Family History (Last Updated 10/28/18 @ 08:40 by Mallory Bella) Mother Hypertension Cancer History Items: - - Father estranged, denies known paternal medical history. Review of Systems Constitutional: Denies: Chills, Fever, Malaise, Weight Change Eyes: Denies: Blurred vision HEENT: Reports: Sore Throat, - - difficulty swallowing. Denies: Head Aches, Sinus Congestion, Sinus Drainage Cardiovascular: Denies: Chest Pain, Palpitations Respiratory: Denies: Cough, Shortness of breath at rest, Sputum production Gastrointestinal: Denies: Abdominal Pain, Nausea, Vomiting Genitourinary: Denies: Dysuria Musculoskeletal: Denies: Joint Pain, Joint Tenderness Skin: Denies: Rash, Wounds Neurological: Denies: Numbness, Tingling, Focal weakness Psychiatric: Denies: Anxiety, Depression, Homicidal Ideations, Suicidal Ideations Hematologic/ Lymphatic: Denies: Easy Bruising, Easy Bleeding VTE Information - Inpt Only VTE Present on Admission: No VTE Mechan Device Prophylaxis: SCD's Patient Problems: Active and Suspected Problems (Last Updated 10/28/18 @ 08:40 by Mallory Bella) Uvulitis (Acute) - Physical Exam Vitals/I&O's: Vital Signs Temp Pulse Resp BP Pulse Ox 98.0 F 107 H 16 142/90 H 97 06/20/19 12:20 06/20/19 12:20 06/20/19 12:20 06/20/19 12:20 06/20/19 12:20 Oxygen Delivery Method Room Air Weight: 235 lb Body Mass Index (BMI) 30.2 General: Alert, Oriented x3, Cooperative HEENT: - - no visible swelling in throat Oral: Dry Mucosa Neck: Supple, No JVD, Negative Carotid Bruits Lungs: Clear to auscultation, Normal air movement, No rhonchi, No wheeze, No rales Cardiovascular: Regular rate, Regular Rhythm, Normal S1, Normal S2, No murmurs Abdomen: Bowel Sounds Present, Soft, Non Tender, Non-Distended, No Hepato- splenomegaly Extremities: No clubbing, No cyanosis, No edema, Capillary Refill Less than 3 Seconds Skin: No rashes, No breakdown Musculoskeletal: No Tenderness to Palpation of Joints or Extremities Lymphatic: No Cervical, Supraclavicular, or Inguinal Adenopathy Neurological: Cranial nerves II-XII grossly intact, Neuro grossly intact, Motor Exam 5/5 strength throughout Psych/Mental Status: Normal Affect, Appropriate, Alert and oriented to time, place, person, mood and affect Laboratory Results 06/20/19 11:30: WBC 7.1, RBC 5.17, Hgb 15.9, Hct 45.9, MCV 88.8, MCH 30.8, MCHC 34.6, RDW Std Deviation 41.1, RDW Coeff of Martin 12.7, Plt Count 250, MPV 9.0, Immature Gran % (Auto) 0.400, Neut % (Auto) 59.7, Lymph % (Auto) 25.0, [place] % (Auto) 9.8, Eos % (Auto) 4.5, Baso % (Auto) 0.6, Absolute Neuts (auto) 4.2, Absolute Lymphs (auto) 1.77, Nucleated RBC % 0 06/20/19 11:30: Sodium 141, Potassium 4.1, Chloride 109 H, Carbon Dioxide 25.0, Anion Gap 7, BUN 13, Creatinine 0.99, Estim Creat Clear Calc 115.32, Est GFR (MDRD) Af Amer 107, Est GFR (MDRD) Non-Af 88, BUN/Creatinine Ratio 13.1, Glucose 104, Calcium 8.9 Diagnostic Data Chest X-Ray 06/20/19 10:49 IMPRESSION: Normal x-ray examination of the chest. Electronically Signed: Isaias Haywood MD at 11:51 EDT , Service support , Assessment/Plan All Active Problems (Last Updated 10/28/18 @ 08:40 by Mallory Bella) Suicidal ideation (Acute) Uvulitis (Acute) Right shoulder strain (Acute) Rib pain on right side (Acute) Cellulitis of right leg without foot (Acute) Sepsis (Acute) H. pylori infection (Resolved) 38 y/o admitted with a complaint of throat pain and inability to swallow 1. Throat swelling * likely due to an allergic reaction; unclear exactly what caused it * has had it several times and says he follow up with ENT; he has an Epipen that helps, but he didnt use it today because he doesnt like the heart racing that accompanies the use of epipen. * says he was told by his ENT surgeon that if he kept getting a recurrence of it, he would have to have his tonsils removed. * admit to PCu with telemetry * keep NPO until speech therapy evaluates * IV solumedrol 40mg q8 * IV benadryl 25mg q8 * monitor closely for respiratory fistress * CT soft tissue head and neck pending * 2. Bipolar disorder * on lamotrigine and buspar. * 3. GERD: on omeprazole. DVT prophylaxis: low risk. encourage ambulation Code status: full code * Patient counseled extensively about different types of CODE STATUS including full code, DNR CCA and DNR CCA. Patient elects to be full code. Total mybw-oe-miuc time 16 minutes. OBSV E&M: 45101 Initial observation care L2 Procedures: 69109 Advncd Care Plan 30 Min
--- NOTE | 2019-06-20 12:46 | CT_ITS ---
STUDY: CT SOFT TISSUE NECK WITH CONTRAST REASON FOR EXAM: Male, 38 years old. THROAT SWELLING AND UVULITIS . ALLERGY TO UNKNOWN SOURCE RADIATION DOSAGE (If Supplied By Facility): CTDIvol = ( 19.60 ) mGy, DLP = ( 611.79 ) mGycm TECHNIQUE: The patient was scanned in a multi-detector CT scanner. High resolution transaxial imaging was performed following intravenous administration of IV 100mL Isovue-370. Sagittal and coronal images were reconstructed. Individualized dose optimization techniques were used for this CT. COMPARISON: None. FINDINGS: Normal bilateral parotid glands. Normal bilateral risk adjustment specialist spaces. Normal bilateral parapharyngeal spaces. Normal bilateral carotid spaces. Normal bilateral sublingual and submandibular glands and spaces. Normal visualized nasopharynx. Normal retropharyngeal space. Normal perivertebral space. Normal visualized bilateral faucial tonsils. The visualized tongue, tongue base and oropharynx are normal. The visualized cervical lymph nodes (levels I-) are within normal size limits, and maintain normal morphology. There is no demonstrated solid or cystic mass lesion. There is no abnormal contrast enhancement. Normal epiglottis, bilateral vallecula and hypopharynx. The pre-epiglottic and paraglottic adipose spaces are normal. Normal visualized bilateral piriform sinuses, aryepiglottic folds, vocal cords, and arytenoid-cricoid articulations. Normal subglottic trachea. Normal bilateral lobes of the thyroid gland. Normal visualized pulmonary apices. There is mild mucosal thickening of the visualized paranasal sinuses. Normal visualized cervical spine. CT/Soft Tissue Neck WITH Contrast IMPRESSION: Normal enhanced CT examination of the soft tissues of the neck. Electronically Signed: Isaias Haywood MD at 15:56 EDT , Service support ,
[2019-06-20 14:05] VITALS: PULSE 92
[2019-06-20 14:06] VITALS: BP 130/92; PULSE 78; RESP 16; TEMP 36.8; O2SAT 94
[2019-06-20 14:12] VITALS: BMI 30.2
[2019-06-20] MEDS: 0.9% Saline Lock 10 ML Syringe IV (15:17)
[2019-06-20] MEDS: 0.9% Normal Saline 1,000 ML 100 ML IV (15:18)
[2019-06-20 18:20] VITALS: BP 135/88; PULSE 94; RESP 18; TEMP 36.4; O2SAT 96
[2019-06-20 19:00] VITALS: PULSE 90
[2019-06-20] MEDS: Pantoprazole Sodium 40 MG Tablet PO (21:13)
[2019-06-20] MEDS: OXcarbazepine 300 MG Tablet PO (21:13)
[2019-06-20] MEDS: buPROPion (SR) 150 MG Tablet.SA PO (21:14)
[2019-06-21 00:20] VITALS: BP 124/80; PULSE 90; RESP 16; TEMP 37.3; O2SAT 95
[2019-06-21] MEDS: 0.9% Normal Saline 1,000 ML 100 ML IV (01:25)
[2019-06-21 03:00] VITALS: PULSE 99
[2019-06-21 05:57] VITALS: BP 115/73; PULSE 88; RESP 18; TEMP 36.8; O2SAT 96
[2019-06-21 07:45] VITALS: PULSE 92
--- NOTE | 2019-06-21 08:24 | DCINST_ITS ---
- Discharge Diagnoses Current Active Problems: Current Active and Chronic Problems (Last Updated 10/28/18 @ 08:40 by Mallory Bella) Uvulitis (Acute) You will use the following diet at home:: Regular Your food should be the consistency of: Regular Your liquids should be the consistency of: Regular/Thin Discharge Activity: Return to Normal Activity Weight Bearing Status: Weight bearing as tolerated Call your doctor if you observe: Fever of 101 or Higher, Shortness of breath, - - sore throat Instructions: ED Uvulitis Allergies/Adverse Reactions: Allergies calamine Allergy (Verified 06/20/19 09:56) Swelling codeine Allergy (Verified 06/20/19 09:56) Hives perphenazine Allergy (Verified 06/20/19 09:56) Swelling rizatriptan Allergy (Verified 06/20/19 09:56) Anaphylaxis topiramate Allergy (Verified 06/20/19 09:56) Anaphylaxis morphine Adverse Reaction (Verified 06/20/19 09:56) Nausea/Vom/Diarrhea ENVIRONMENTAL Allergy (Uncoded 06/20/19 09:56) Itching wheat/rye bread Allergy (Uncoded 06/20/19 09:56) Other Medications to take at Discharge Omeprazole [Prilosec] 40 mg PO BID 03/08/13 Epi Pen (for allergic rxn) 0.3 mg IM X1 PRN 08/22/14 Bupropion HCl [Bupropion HCl Sr] 150 mg PO BID 06/20/19 DiphenhydrAMINE [Benadryl] 25 mg PO TID PRN #10 cap 06/20/19 Hydroxyzine HCl 50 mg PO QHS PRN 06/20/19 Meclizine HCl 12.5 mg PO TID PRN 06/20/19 Oxcarbazepine 300 mg PO BID 06/20/19 traZODone [Desyrel] 100 mg PO QHS PRN 06/20/19 predniSONE tablet 40 mg PO DAILY #10 tab 06/21/19 The following prescriptions were given: DiphenhydrAMINE [Benadryl] 25 mg PO TID PRN #10 cap Prescription Printed predniSONE tablet 40 mg PO DAILY #10 tab Transmission Status: Pending to [id number] Primary Care Physician: Bruno Tim DO [Primary Care Provider] - Please follow up with your Primary Care Physician in: 1-2 weeks Test Results: Test results from this visit will be discussed in further detail at your follow- up appointment, if applicable. Please Follow Up With: Delroy Castillo MD When: 1-2 weeks Proposed Discharge Date: 06/21/19
--- NOTE | 2019-06-21 08:32 | PCM.DC.SUM ---
Discharge Date and Diagnosis - Problem List Patient Problems: Active and Suspected Problems (Last Updated 10/28/18 @ 08:40 by Mallory Bella) Uvulitis (Acute) Date of Admission: 06/20/19 Date of Discharge: 06/21/19 - Primary Discharge Diagnosis Active and Suspected Problems (Last Updated 10/28/18 @ 08:40 by Mallory Bella) Uvulitis (Acute) throat swelling - Secondary Discharge Diagnosis Chronic Problems (Last Updated 10/28/18 @ 08:40 by Mallory Bella) Anxiety and depression (Chronic) Acid reflux disease (Chronic) Bipolar disorder, unspecified (Chronic) Depression (Chronic) GERD with esophagitis (Chronic) Hospital Course and Treatment Imaging Results: Diagnostic Data Chest X-Ray 06/20/19 10:49 IMPRESSION: Normal x-ray examination of the chest. Electronically Signed: Isaias Haywood MD at 11:51 EDT , Service support , Soft Tissue Neck CT 06/20/19 12:46 IMPRESSION: Normal enhanced CT examination of the soft tissues of the neck. Electronically Signed: Isaias Haywood MD at 15:56 EDT , Service support , Operations: None Procedures: None Summary of Care Provided: The patient is a 38 year old M with a PMH of bipolar disorder and depression. He was admitted with a complaint of difficulty swallowing and throat swelling. Symptoms started morning of admission. He had difficulty swallowing but denied any shortness of breath, wheezing or rhonchi or any fever or chills. Patient states he has had symptoms like this before and they usually resolve with use of his EpiPen but he does not like using it because it makes his heart race and makes him feel uncomfortable. On admission in the ED, vitals were stable. He was saturating at 99% on room air and chemistry was unremarkable as well as hematology was unremarkable. Chest x-ray showed no acute cardiopulmonary process. Patient was given IV Benadryl and Solu-Medrol also in the ED. Plan was to discharge him home but he subsequently still could not swallow even water in the ED and so decision was made to admit him for overnight monitoring. Soft tissue neck CT was normal and showed no acute pathology. Patient was admitted and managed for throat swelling and uvulitis. He was put on IV Solu-Medrol and IV Benadryl. Patient passed bedside swallow evaluation and was put on diet which she tolerated. Patient remained stable overnight and had no shortness of breath or difficulty swallowing. He was discharged home on 06/21/2019 with a prescription for p.o. prednisone 40 mg daily x5 days and also with a prescription for p.o. Benadryl. He is to follow-up with his primary care doctor and the ENT surgeon that he has been following. Patient seen and examined prior to discharge. He had no complaints and felt improved and had been able to eat breakfast. Review of symptoms otherwise negative. Labs and vitals reviewed. Home medications reviewed and reconciled. O/E: Vital Signs Temp Pulse Resp BP Pulse Ox 98.5 F 100 14 154/84 H 96 06/21/19 09:52 06/21/19 09:52 06/21/19 09:52 06/21/19 09:52 06/21/19 09:52 General: Alert, Oriented x3, Cooperative HEENT: - -moist mucous membranes, normal, no evidence of throat swelling. Tonsils minimally enlarged Oral: Dry Mucosa Neck: Supple, No JVD, Negative Carotid Bruits Lungs: Clear to auscultation, Normal air movement, No rhonchi, No wheeze, No rales Cardiovascular: Regular rate, Regular Rhythm, Normal S1, Normal S2, No murmurs Abdomen: Bowel Sounds Present, Soft, Non Tender, Non-Distended, No Hepato-splenomegaly Extremities: No clubbing, No cyanosis, No edema, Capillary Refill Less than 3 Seconds Skin: No rashes, No breakdown Musculoskeletal: No Tenderness to Palpation of Joints or Extremities Lymphatic: No Cervical, Supraclavicular, or Inguinal Adenopathy Neurological: Cranial nerves II-XII grossly intact, Neuro grossly intact, Motor Exam 5/5 strength throughout Psych/Mental Status: Normal Affect, Appropriate, Alert and oriented to time, place, person, mood and affect Plan is for discharge home today. Patient Problems: Active and Suspected Problems (Last Updated 10/28/18 @ 08:40 by Mallory Bella) Uvulitis (Acute) - Physical Exam Vitals/I&O's: Vital Signs Temp Pulse Resp BP Pulse Ox 98.2 F 92 18 115/73 96 06/21/19 05:57 06/21/19 07:45 06/21/19 05:57 06/21/19 05:57 06/21/19 05:57 Oxygen Delivery Method Room Air Weight: 235 lb Body Mass Index (BMI) 30.2 Intake and Output for Last 24 Hours 06/19/19 06/20/19 06/21/19 23:59 23:59 23:59 Intake Total 755 / 755 1444 / 1444 Balance 755 / 755 1444 / 1444 Laboratory Results 06/20/19 11:30: WBC 7.1, RBC 5.17, Hgb 15.9, Hct 45.9, MCV 88.8, MCH 30.8, MCHC 34.6, RDW Std Deviation 41.1, RDW Coeff of Amrtin 12.7, Plt Count 250, MPV 9.0, Immature Gran % (Auto) 0.400, Neut % (Auto) 59.7, Lymph % (Auto) 25.0, Tucker % (Auto) 9.8, Eos % (Auto) 4.5, Baso % (Auto) 0.6, Absolute Neuts (auto) 4.2, Absolute Lymphs (auto) 1.77, Nucleated RBC % 0 06/20/19 11:30: Sodium 141, Potassium 4.1, Chloride 109 H, Carbon Dioxide 25.0, Anion Gap 7, BUN 13, Creatinine 0.99, Estim Creat Clear Calc 115.32, Est GFR (MDRD) Af Amer 107, Est GFR (MDRD) Non-Af 88, BUN/Creatinine Ratio 13.1, Glucose 104, Calcium 8.9 Current Medications Bupropion HCl (Wellbutrin Sr (150mg Tablets)) 150 mg PO BID NOEL Last Admin: 06/20/19 21:14 Dose: 150 mg Documented by: Dextrose (D50w Syringe) 0 gm IV X1 PRN; Protocol PRN Reason: Hypoglycemia Diphenhydramine HCl (Benadryl) 25 mg IV Q6H PRN PRN PRN Reason: Swelling Epinephrine HCl () 0.3 mg IM X1 PRN PRN Reason: ALLERGIES Glucagon () 1 mg IM .X1 PRN PRN Reason: Hypoglycemia Hydroxyzine Pamoate (Vistaril Pamoate Capsule) 50 mg PO QHS PRN PRN Sodium Chloride () 1,000 mls @ 100 mls/hr IV .Q10H [facility] Stop: 06/21/19 10:01 Last Admin: 06/21/19 01:25 Dose: 100 mls/hr Documented by: Meclizine HCl (Antivert) 12.5 mg PO TID PRN PRN PRN Reason: DIZZINESS Methylprednisolone (Solu-Medrol) [address] [facility] Last Admin: 06/21/19 06:00 Dose: 40 mg Documented by: Ondansetron HCl (Zofran) 4 mg IV Q8H PRN PRN PRN Reason: NAUSEA/VOMITING Oxcarbazepine (Trileptal) [address] [facility] Last Admin: 06/20/19 21:13 Dose: 300 mg Documented by: Pantoprazole Sodium (Protonix) [address] [facility] Last Admin: 06/20/19 21:13 Dose: 40 mg Documented by: Sodium Chloride () 10 - 40 ml IV UD PRN PRN Reason: SALINE FLUSH Last Admin: 06/20/19 15:17 Dose: 10 ml Documented by: Trazodone HCl (Desyrel) 100 mg PO QHS PRN PRN PRN Reason: SLEEP Discharge Diet: Low fat/ Low Cholesterol Discharge Activity: Return to Normal Activity Weight Bearing Status: Weight bearing as tolerated Call your doctor if you observe: Fever of 101 or Higher, Shortness of breath, - - sore throat Home Medications: Medications to take at Discharge Omeprazole [Prilosec] 40 mg PO BID 03/08/13 Epi Pen (for allergic rxn) 0.3 mg IM X1 PRN 08/22/14 Bupropion HCl [Bupropion HCl Sr] 150 mg PO BID 06/20/19 DiphenhydrAMINE [Benadryl] 25 mg PO TID PRN #10 cap 06/20/19 Hydroxyzine HCl 50 mg PO QHS PRN 06/20/19 Meclizine HCl 12.5 mg PO TID PRN 06/20/19 Oxcarbazepine 300 mg PO BID 06/20/19 traZODone [Desyrel] 100 mg PO QHS PRN 06/20/19 predniSONE tablet 40 mg PO DAILY #10 tab 06/21/19 Following Prescrptions Were Given to Patient: DiphenhydrAMINE [Benadryl] 25 mg PO TID PRN #10 cap Prescription Printed predniSONE tablet 40 mg PO DAILY #10 tab Transmission Status: Received by [facility] #30 Primary Care Physician: Bruno Tim DO [Primary Care Provider] - Please follow up with your Primary Care Physician in: 1-2 weeks Please Follow Up With: Delroy Castillo MD When: 1-2 weeks Patient Instructions: ED Uvulitis Disposition: Home Minutes spent on discharge:: 35 Patient Condition:: Stable Medical Necessity - Tobacco Use Smoking Status: Former smoker Meaningful Use Info Meaningful Use Diagnoses (Choose all that apply): None applicable OBSV E&M: 13983 Observation care discharge
[2019-06-21 09:52] VITALS: BP 154/84; PULSE 100; RESP 14; TEMP 36.9; O2SAT 96
--- NOTE | 2019-06-21 10:30 | PHA.DC.MR ---
Pharmacy Service has performed discharge medication reconciliation for this patient. The patient's discharge medication list was reviewed for discrepancies and discrepancies were resolved. Home Medications Omeprazole [Prilosec] 40 mg PO BID 03/08/13 Epi Pen (for allergic rxn) 0.3 mg IM X1 PRN 08/22/14 Bupropion HCl [Bupropion HCl Sr] 150 mg PO BID 06/20/19 DiphenhydrAMINE [Benadryl] 25 mg PO TID PRN #10 cap 06/20/19 Hydroxyzine HCl 50 mg PO QHS PRN 06/20/19 Meclizine HCl 12.5 mg PO TID PRN 06/20/19 Oxcarbazepine 300 mg PO BID 06/20/19 traZODone [Desyrel] 100 mg PO QHS PRN 06/20/19 predniSONE tablet 40 mg PO DAILY #10 tab 06/21/19
== END 2019-06-21 08:27 | disposition home or self-care (01) ==
LOC: ED 12:18 → PCU 12:45
PROVIDERS: Admitting Provider Student in an Organized Health Care Education/Training Program; Emergency Provider Emergency Medicine; PCP Family Medicine; Visit Provider Student in an Organized Health Care Education/Training Program
DX: K12.2 Cellulitis and abscess of mouth (principal); K21.0 Gastro-esophageal reflux disease with esophagitis; F31.9 Bipolar disorder, unspecified; F41.9 Anxiety disorder, unspecified; Z79.899 Other long term (current) drug therapy; Z87.891 Personal history of nicotine dependence
CPT/HCPCS: 70491; 71045; 80048; 85025; 96361; 96365; 96366; 96372; 96375; 96376; 99218; 99284; 99406; J7030; Q9967; A4216; G0378; J2405; J3490

== ENCOUNTER 2019-06-27 09:24 | Emergency (ER) | payer MEDICAID, SELFPAY ==
[2019-06-27 09:26] VITALS: BP 144/100; PULSE 83; RESP 22; TEMP 36.8; O2SAT 97; BMI 29.7
[2019-06-27 09:29] VITALS: BP 133/96; RESP 21
--- NOTE | 2019-06-27 10:13 | ED.DCSUM_ITS ---
- ER Visit Summary Date of Service: 06/27/19 Chief Complaint: Allergic reaction History of Present Illness: The patient is a 39 M who presents with an allergic reaction that began again today. Patient states he was recently treated for an allergic reaction and was admitted to the hospital. Patient states he finished a course of steroids last night. Patient states he felt like his throat was swelling. Patient states he felt there was some tightness in his throat and chest. Patient denies any new soaps, foods, shampoos, laundry detergents, fabric softeners, or other exposures. Patient did take his EpiPen prior to arrival and is feeling better. Patient states he has an appoint with Dr. Castillo tomorrow for further evaluation of his allergic reaction. Physical Examination: Vital signs are stable. Patient is afebrile. Patient is in no acute distress. Oral mucosa is pink and moist. There is some mild edema of the uvula but the airway is patent. There is no erythema. Neck is supple. Trachea is midline. There is no JVD. Heart was regular rate and rhythm. Lungs are clear and equal bilaterally. Abdomen is soft. Bowel sounds are normal. There is no tenderness. Cranial nerves II through XII are intact. There are no focal motor or sensory deficits noted. Extremities are intact. There is no calf tenderness or edema. Test Results: CBC and basic metabolic profile were within normal limits. Patient developed some chest pain here in the emergency department. EKG was obtained. EKG showed normal sinus rhythm with a rate of 72. There are no acute ST or T wave changes. Emergency Department Course and Treatment: Patient was given a dose of Solu- Medrol here. Patient was feeling better on reevaluation but stated he developed a headache. Patient was given a dose of Tylenol. Patient was given a prescription for a steroid taper. Patient was instructed to follow-up with ENT tomorrow as scheduled. Patient understood and was agreeable with the plan. All questions were answered. Disposition: Discharge home Impression: Allergic reaction This note was generated with [employer] dictation software. It may contain incorrect words, spelling, and punctuation that were not noted in review of the chart prior to signing ED Disposition - Plan for ED Patient: Disposition: Home or Assisted Living Diagnosis: Allergic reaction Instructions: ED General Allergic Reactions, ED Angioedema Prescriptions: Prednisone 10 mg PO UD #30 tab Prescription Printed Referrals: Bruno Tim DO [Primary Care Provider] - 3-5 Days Delroy Castillo MD [STAFF PHYSICIAN] - Keep Keven appointment
[2019-06-27] MEDS: 0.9% Normal Saline 1,000 ML 1000 ML IV (10:18)
[2019-06-27] MEDS: MethylPREDNISolone 125 MG/2 ML Vial 60 MG IV (10:18)
--- NOTE | 2019-06-27 10:20 | EKG12_ITS ---
Test Reason : CP Blood Pressure : / mmHG Vent. Rate : 072 BPM Atrial Rate : 072 BPM P-R Int : 144 ms QRS Dur : 090 ms QT Int : 390 ms P-R-T Axes : 031 032 031 degrees QTc Int : 427 ms Normal sinus rhythm Normal ECG Confirmed by RAYMOND PERRY, DOROTHY ([id number]), medical transcription editor TIERRA ZEE ([id number]) on 06/28/2019 1:01:48 PM Referred By: JACI Confirmed By:DOROTHY ANDRADE MD
[2019-06-27 10:27] LABS: Absolute Lymphocyte Count 2.64 X10^3/uL (0.83-4.51); Absolute Neutrophil Count 5.1 X10^3/uL (2.0-7.7); Basophil# 0.05 X10^3/uL; Basophil% 0.6 % (0-1); Eosinophil# 0.18 X10^3/uL; Hematocrit 46.5 % (40-54); Hemoglobin 15.8 g/dL (13.0-16.5); Lymphocyte # 2.64 X10^3/ul (4.0); Lymphocyte % 29.4 % (19-41); Mean Corpuscular Hgb 30.7 pg (27.0-32.0); Mean Corpuscular Volume 90.5 fL (80-94); Mean Platelet Vol. 8.8 fl (6.2-12.0); NRBC Flagged by Analyzer 0 % (0-5); Neutrophil # 5.12 X10^3/uL (2.7-7.7); Platelet Count 252 K/mm3 (150-450); RBC Distribution Width CV 12.7 % (11.6-14.6); RBC Distribution Width SD 41.9 fl (35.1-43.9); Red Blood Count 5.14 M/mm3 (4.6-6.2)
[2019-06-27 10:41] VITALS: O2SAT 100
[2019-06-27 10:41] LABS: ALB/GLOB Ratio 1.2 RATIO (0.9-2.4); AST(SGOT) 14 U/L (15-37); Alanine Aminotransfer ALT/SGPT 31 U/L (16-61); Albumin, Serum 3.8 g/dL (3.2-5.0); Alkaline Phosphatase 45 U/L (45-117); Anion Gap 5 (5-15); BUN 14 mg/dL (7-18); BUN/Creat Ratio 14.7 RATIO (10-20); Calcium,Total 8.7 mg/dL (8.5-10.1); Chloride 108 mmol/L (98-107); Creatinine, Serum 0.95 mg/dL (0.70-1.30); EST Glomerular Filtration Rate 93 mL/min (>60); Est Glom Filt Rate - Afr Amer 112 mL/min (>60); Estimated Creatinine Clearance 118.97 ml/min; Globulin 3.2 g/dL (2.2-4.2); Glucose 106 mg/dL (74-106); Potassium 3.6 mmol/L (3.5-5.1); Sodium Level 140 mmol/L (136-145)
[2019-06-27 11:37] VITALS: BP 137/99; PULSE 74; RESP 19; O2SAT 99
== END 2019-06-27 11:39 | disposition home or self-care (01) ==
LOC: ED 11:01
PROVIDERS: Emergency Provider Emergency Medicine; PCP Family Medicine
DX: T78.40XA Allergy, unspecified, initial encounter (principal); R07.9 Chest pain, unspecified; J02.9 Acute pharyngitis, unspecified; R00.0 Tachycardia, unspecified; R51 Headache; Z79.899 Other long term (current) drug therapy
CPT/HCPCS: 80053; 85025; 93005; 96361; 96374; 99283; J7030; A4216

== ENCOUNTER → 2019-07-01 10:29 | Outpatient (CLI) | payer MEDICAID, SELFPAY ==
[2019-06-27 09:26] VITALS: BMI 29.7
[2019-07-04 03:06] LABS: Banana <0.10 kU/L (Class 0); Barley, Whole Grain 0.13 kU/L (Class 0/I); Beef <0.10 kU/L (Class 0); Brazil Nut <0.10 kU/L (Class 0); Carrot <0.10 kU/L (Class 0); Cashew <0.10 kU/L (Class 0); Chicken <0.10 kU/L (Class 0); Clam <0.10 kU/L (Class 0); Codfish <0.10 kU/L (Class 0); Corn 0.11 kU/L (Class 0/I); Egg, White <0.10 kU/L (Class 0); Egg, Whole <0.10 kU/L (Class 0); Egg, Yolk <0.10 kU/L (Class 0); Garlic <0.10 kU/L (Class 0); Gluten <0.10 kU/L (Class 0); Hazelnut/Filbert <0.10 kU/L (Class 0); Lobster <0.10 kU/L (Class 0); Milk (Cow) <0.10 kU/L (Class 0); Orange <0.10 kU/L (Class 0); Pea <0.10 kU/L (Class 0); Peanut <0.10 kU/L (Class 0); Pecan <0.10 kU/L (Class 0); Pork <0.10 kU/L (Class 0); Potato, White <0.10 kU/L (Class 0); Rice <0.10 kU/L (Class 0); SCALLOP <0.10 kU/L (Class 0); SESAME SEED 0.21 kU/L (Class 0/I); Salmon <0.10 kU/L (Class 0); Shrimp <0.10 kU/L (Class 0); Soybean <0.10 kU/L (Class 0); Strawberry <0.10 kU/L (Class 0); Tuna <0.10 kU/L (Class 0); Walnut, (Food) <0.10 kU/L (Class 0); Wheat 0.22 kU/L (Class 0/I); Yeast <0.10 kU/L (Class 0)
[2019-07-04 03:38] LABS: Turkey <0.10 kU/L (Class 0)
== END ==
PROVIDERS: PCP Family Medicine; Referring Provider Otolaryngology Otolaryngology/Facial Plastic Surgery; Visit Provider Otolaryngology Otolaryngology/Facial Plastic Surgery
DX: T78.40XA Allergy, unspecified, initial encounter (principal)
CPT/HCPCS: 36415; 86003

== ENCOUNTER 2019-07-10 20:49 | Emergency (ER) | payer MEDICAID, SELFPAY ==
[2019-07-10 20:50] VITALS: BP 155/99; PULSE 113; RESP 18; TEMP 36.3; BMI 28.9
[2019-07-10 21:22] LABS: Absolute Neutrophil Count 4.7 X10^3/uL (2.0-7.7); Basophil# 0.04 X10^3/uL; Basophil% 0.5 % (0-1); Eosinophil# 0.21 X10^3/uL; Eosinophils% 2.5 % (0-5); Hematocrit 48.6 % (40-54); Hemoglobin 16.3 g/dL (13.0-16.5); Lymphocyte % 31.1 % (19-41); Mean Corp Hgb Conc 33.5 g/dL (32-36); Mean Corpuscular Hgb 31.2 pg (27.0-32.0); Mean Corpuscular Volume 93.1 fL (80-94); Monocyte# 0.81 X10^3/uL; Monocyte% 9.7 % (0-10); NRBC Flagged by Analyzer 0 % (0-5); Neutrophil # 4.65 X10^3/uL (2.7-7.7); Neutrophil % 55.6 % (47-70); Platelet Count 259 K/mm3 (150-450); RBC Distribution Width CV 12.9 % (11.6-14.6); RBC Distribution Width SD 44.3 fl (35.1-43.9); Red Blood Count 5.22 M/mm3 (4.6-6.2); White Blood Count 8.4 K/mm3 (4.4-11.0)
--- NOTE | 2019-07-10 21:33 | ED.DCSUM_ITS ---
History of Present Illness Chief Complaint: Suicidal Informant: Patient Onset: Weeks Context: Gradual Onset Conflict: Family, Work, Financial Timing: Continuous Current Severity: Moderate Maximum Severity: Severe Worsened by: Situational factors, - - Restraining order, change in medication, stress from work, stress due to finances, stress due to stay at home order Relieved by: Nothing Associated Symptoms: Depressed, Change in Eating, Change in sleeping, Decreased Interest, Decreased Concentration, Suicidal Thoughts, Agitated. Negative for: Visual Hallucinations, Auditory Hallucinations Specific plan (suicidal thought): Single vehicle motor crash Narrative: Patient is a 39-year-old male with history of bipolar affective disorder and anxiety who recently had his medication changed. Medication was changed because he had a an allergic reaction, angioedema. He was placed on new medication. He states he has gotten worse. He informed me that he is from his . There was a restraining order placed that he cannot see his nor his child for 5 years. He has had problems at work. Because of difficulty concentrating he has accidentally cut himself with box knife. He does not have a support system. He denies alcohol or drug use. He denies visual or auditory hallucination. He did not tell me that he would harm someone. Triage document homicidal ideation. Prior similar symptoms: No Recent Illness/Hospitalization: No - Past Medical History (1) Acid reflux disease Status: Chronic (2) Anxiety and depression Status: Chronic (3) Bipolar disorder, unspecified Status: Chronic (4) GERD with esophagitis Status: Chronic Past Medical History - Allergies and Home Meds Allergies/Adverse Reactions: Allergies calamine Allergy (Verified 06/27/19 09:25) Swelling codeine Allergy (Verified 06/27/19 09:25) Hives perphenazine Allergy (Verified 06/27/19 09:25) Swelling rizatriptan Allergy (Verified 06/27/19 09:25) Anaphylaxis topiramate Allergy (Verified 06/27/19 09:25) Anaphylaxis morphine Adverse Reaction (Verified 06/27/19 09:25) Nausea/Vom/Diarrhea ENVIRONMENTAL Allergy (Uncoded 06/27/19 09:25) Itching wheat/rye bread Allergy (Uncoded 06/27/19 09:25) Other Primary Care Physician: Bruno Tim DO [Primary Care Provider] - Prior records reviewed: Yes Surgical History: noncontributory, - - Right foot surgery. Lives: Alone Smoking Status: Former smoker Alcohol: None Drugs: None - Family History Maternal Family History: Family History (Last Updated 10/28/18 @ 08:40 by Mallory Bella) Mother Hypertension Cancer Family History: Reports: Diabetes, Heart Disease, Hypertension, - - Mini stroke Paternal Family History: Family History (Last Updated 10/28/18 @ 08:40 by Mallory Bella) Mother Hypertension Cancer Family History: Reports: - - Father estranged, denies known paternal medical history. Review of Systems General: Denies: Chills, Fever, Malaise, Subjective, Sweats Eyes: Denies: Visual changes - bilaterally, Blurred Vision - bilaterally, Diplopia ENT: Denies: Rhinorrhea, Sore throat Cardiovascular: Denies: Chest pain, Palpitations Respiratory: Denies: Dyspnea, Cough, Dyspnea on exertion Gastrointestinal: Denies: Abdominal pain, Nausea, Vomiting, Diarrhea, Melena, Hematochezia Genitourinary: Denies: Dysuria, Hematuria, Frequency Musculoskeletal: Denies: Myalgias, Arthralgias, Neck pain, Back pain, Extremity Pain Skin: Denies: Rash, Abscess, Abrasions, Wounds Neurological: Denies: Headache, Weakness, Numbness Psych: Reports: Depression, Anxiety, Suicidal thoughts, Suicidal ideations Hematologic: Denies: Easy bruising, Easy bleeding Allergy: Denies: Uticaria, Swelling of the mouth, Swelling of the tongue Physical Exam Vital Signs/Narrative: Vital Signs Temp Pulse Resp BP 0530/20 20:50 97.3 F L 113 H 18 155/99 H Inital Vital Signs reviewed: Yes General: Well nourished, Well developed Head: Normocephalic, Atraumatic Eyes: Perrl, EOMI. Negative for: Pale conjunctiva, Scleral icterus ENT: Moist mucous membranes, No rhinorrhea, TM's clear Neck: Supple, Nontender, No lymphadenopathy, No JVD Cardiovascular: Regular rate, Regular rhythm, No murmurs, Normal S1, Normal S2 Respiratory: No distress, CTA bilaterally, Chest nontender Abdomen: Soft, Nontender, Nondistended, Normal bowel sounds Back: Nontender, Normal Inspection Extremities: Nontender, No Edema, - - Healing linear laceration thenar eminence left hand due to box cut to her. This occurred at work. Skin: Normal color, No rash Neurological: Alert, Oriented x3, Cranial nerves II-XII grossly intact, Normal Strength, Normal Sensation, Normal Gait Psych: Normal Stable Appropriate Affect, Normal Appearance, Depressed, Poverty of Speech, Suicidal thoughts, Limited Insight, Limited Judgement. Negative for: No suicidal or homicidal ideation, Good Insight, Good Judgement, Incoherent thoughts, Homicidal thoughts, Hallucinations, Delusions, Paranoid Ideation Diagnostic/Tx/Re-eval Screen was positive for methamphetamine. Patient is on trazodone which is known to give a false positive methamphetamine result. Laboratory Results 07/10/19 07/10/19 07/10/19 21:15 21:15 21:15 WBC 8.4 RBC 5.22 Hgb 16.3 Hct 48.6 MCV 93.1 MCH 31.2 MCHC 33.5 RDW Std Deviation 44.3 H RDW Coeff of Martin 12.9 Plt Count 259 MPV 9.0 Immature Gran % (Auto) 0.600 Neut % (Auto) 55.6 Lymph % (Auto) 31.1 Mcintosh % (Auto) 9.7 Eos % (Auto) 2.5 Baso % (Auto) 0.5 Absolute Neuts (auto) 4.7 Absolute Lymphs (auto) 2.60 Nucleated RBC % 0 Sodium 143 Potassium 3.6 Chloride 113 H Carbon Dioxide 23.0 Anion Gap 7 BUN 13 Creatinine 0.95 Estim Creat Clear Calc 118.97 Est GFR (MDRD) Af Amer 112 Est GFR (MDRD) Non-Af 93 BUN/Creatinine Ratio 13.7 Glucose 140 H Calcium 8.3 L Urine Opiates Screen Urine Methadone Screen Ur Barbiturates Screen Ur Phencyclidine Scrn Ur Amphetamines Screen U Methamphetamin-MDMA U Benzodiazepines Scrn Urine Cocaine Screen U Cannabinoids Screen Ur Drug Screen Comment Ethyl Alcohol 8.0 07/10/19 21:15 WBC RBC Hgb Hct MCV MCH MCHC RDW Std Deviation RDW Coeff of Mratin Plt Count MPV Immature Gran % (Auto) Neut % (Auto) Lymph % (Auto) Mcintosh % (Auto) Eos % (Auto) Baso % (Auto) Absolute Neuts (auto) Absolute Lymphs (auto) Nucleated RBC % Sodium Potassium Chloride Carbon Dioxide Anion Gap BUN Creatinine Estim Creat Clear Calc Est GFR (MDRD) Af Amer Est GFR (MDRD) Non-Af BUN/Creatinine Ratio Glucose Calcium Urine Opiates Screen NEGATIVE Urine Methadone Screen NEGATIVE Ur Barbiturates Screen NEGATIVE Ur Phencyclidine Scrn NEGATIVE Ur Amphetamines Screen NEGATIVE U Methamphetamin-MDMA POSITIVE H U Benzodiazepines Scrn NEGATIVE Urine Cocaine Screen NEGATIVE U Cannabinoids Screen NEGATIVE Ur Drug Screen Comment Ethyl Alcohol No evidence of metabolic or infectious etiology that would explain patient's presentation. His tox screen is positive for methamphetamine, which represents a false positive since he is on trazodone. In my professional medical opinion patient has no contraindication for transfer to psychiatric facility to receive the appropriate care he is in need of. Restraints applied: No With increased depression, increased stressors and suicidal thoughts with plan. Will obtain appropriate laboratory test for medical clearance for patient to be transferred to psychiatric facility for appropriate intervention. In my pressure medical opinion is medically cleared. Patient has been pink slipped by me. [facility] worker was paged and will evaluate patient. They will assist with placement to psychiatric facility. ED Disposition - Plan for ED Patient: Disposition: Psychiatric Hospital or Unit Diagnosis: Depression with suicidal ideation Referrals: Bruno Tim DO [Primary Care Provider] -
[2019-07-10 21:34] LABS: Amphetamine Urine VISTA NEGATIVE (<1000 ng/mL); Barbiturate Urine VISTA NEGATIVE (< 200 ng/mL); Benzodiazepine Urine VISTA NEGATIVE (< 200 ng/mL); Cocaine Urine VISTA NEGATIVE (< 300 ng/mL); Ecstacy Urine VISTA POSITIVE (< 500 ng/mL); Methadone Urine VISTA NEGATIVE (< 300 ng/mL); PCP Urine VISTA NEGATIVE (< 25 ng/mL); THC Urine VISTA NEGATIVE (< 50 ng/mL); Vista UDS pH Range 6
[2019-07-10 21:45] LABS: Anion Gap 7 (5-15); BUN 13 mg/dL (7-18); BUN/Creat Ratio 13.7 RATIO (10-20); Calcium,Total 8.3 mg/dL (8.5-10.1); Chloride 113 mmol/L (98-107); Creatinine, Serum 0.95 mg/dL (0.70-1.30); EST Glomerular Filtration Rate 93 mL/min (>60); Est Glom Filt Rate - Afr Amer 112 mL/min (>60); Estimated Creatinine Clearance 118.97 ml/min; Glucose 140 mg/dL (74-106); Potassium 3.6 mmol/L (3.5-5.1); Sodium Level 143 mmol/L (136-145)
--- NOTE | 2019-07-10 22:59 | NURSING ---
TALKED OT CRISIS AT [id number]
[2019-07-10] MEDS: LORazepam 1 MG Tablet 2 MG PO (23:41)
[2019-07-10] MEDS: Pantoprazole Sodium 40 MG Tablet PO (23:42)
[2019-07-10] MEDS: buPROPion (SR) 150 MG Tablet.SA PO (23:43)
[2019-07-10 23:49] VITALS: RESP 16
[2019-07-11 01:03] VITALS: BP 124/79; PULSE 93; RESP 14; O2SAT 95
[2019-07-11 01:59] VITALS: BP 124/79; PULSE 93; RESP 14; TEMP 36.4; O2SAT 95
== END 2019-07-11 02:05 ==
LOC: ED 07-11 02:20
PROVIDERS: Emergency Provider Emergency Medicine; PCP Family Medicine
DX: F31.9 Bipolar disorder, unspecified (principal); R45.851 Suicidal ideations; F41.9 Anxiety disorder, unspecified; K21.0 Gastro-esophageal reflux disease with esophagitis; Z79.899 Other long term (current) drug therapy; Z87.891 Personal history of nicotine dependence
CPT/HCPCS: 80048; 80307; 80320; 85025; 87635; 99285; C9803; G2023; G0480; U0004

== ENCOUNTER 2019-08-07 04:58 | Emergency (ER) | payer MEDICAID, SELFPAY ==
[2019-08-07 04:59] VITALS: BP 126/93; PULSE 93; RESP 16; TEMP 37.1; O2SAT 96; BMI 30.7
--- NOTE | 2019-08-07 05:06 | ED.DCSUM_ITS ---
- ER Visit Summary Date of Service: 08/07/19 Chief Complaint: Throat swelling History of Present Illness: The patient is a 39 M who woke up with throat swelling. It started about 2 hours ago. He states that he feels like the back of his throat is swollen and he is having a hard time swallowing. Denies any cough or fever. No known irritants. He took nothing for this at home. He had an episode of this about 1 month ago. He was actually admitted to the hospital for this. He had a negative CT of the soft tissues of the neck. He was treated with Solu-Medrol and Benadryl and was discharged. He states he followed up with ENT and they are not quite sure what is the cause. His ultimate diagnosis was uvulitis. He denies any new changes to diet or any new irritants. Physical Examination: Vital signs are reviewed. HEENT exam reveals that his tonsils are swollen bilaterally. His uvula is midline but is diffusely swollen. He is handling his secretions normally. He is able to talk in his phonation sounds normal. His neck is nontender. There is no lymphadenopathy. Heart is regular rate and rhythm. Lungs clear to auscultation bilaterally. Abdomen soft nontender. He has a normal neurologic examination. Test Results: None performed Emergency Department Course and Treatment: Patient was treated with IV Solu- Medrol and Benadryl. Upon reevaluation he feels symptomatically improved. I reevaluated his pharynx and there does appear to be some slight decrease in the size of the uvula. Patient will be discharged with 40 mg of prednisone for 5 days. He will call ENT for follow-up Treatment Plan: [] Disposition: Discharge Impression: Uvulitis This note was generated with iCopyright dictation software. It may contain incorrect words, spelling, and punctuation that were not noted in review of the chart prior to signing ED Disposition - Plan for ED Patient: Disposition: Home or Assisted Living Instructions: ED General Allergic Reactions Prescriptions: Prednisone [Deltasone] 40 mg PO DAILY #10 tab Transmission Status: Pending to [facility] #30 Referrals: Bruno Tim DO [Primary Care Provider] -
[2019-08-07] MEDS: DiphenhydrAMINE 50 MG/ML Syringe 25 MG IV (05:07)
[2019-08-07] MEDS: MethylPREDNISolone 125 MG/2 ML Vial IV (05:10)
[2019-08-07 07:00] VITALS: BP 125/84; PULSE 85; RESP 16; O2SAT 96
== END 2019-08-07 07:01 | disposition home or self-care (01) ==
PROVIDERS: Emergency Provider Emergency Medicine; PCP Family Medicine
DX: K12.2 Cellulitis and abscess of mouth (principal); F31.9 Bipolar disorder, unspecified; Z79.899 Other long term (current) drug therapy
CPT/HCPCS: 96374; 96375; 99283; A4216

== ENCOUNTER 2019-08-27 06:45 | Emergency (ER) | payer MEDICAID, SELFPAY ==
[2019-08-27 06:47] VITALS: BP 139/90; PULSE 89; RESP 16; TEMP 36.9; O2SAT 96; BMI 33.1
[2019-08-27] MEDS: DiphenhydrAMINE 50 MG/ML Syringe IV (07:13)
[2019-08-27] MEDS: MethylPREDNISolone 125 MG/2 ML Vial IV (07:13)
--- NOTE | 2019-08-27 07:42 | ED.DCSUM_ITS ---
- ER Visit Summary Date of Service: 08/27/19 Chief Complaint: Swollen throat History of Present Illness: The patient is a [address] Hany Castillo and Dr. Tim. Patient reports that he has had multiple episodes of uvulitis. This episode began at 5 AM. He reports that he took an EpiPen at 650. States that it always happens at night. He does not wear CPAP. He states that he saw Dr. Castillo and has had food allergy testing done. He reports that last night he ate macaroni salad before bed and he is eaten this multiple times in the past without problems. Patient denies any change in soap, shampoo, laundry detergent, or fabric softener. No new clothing, bedding, carpeting, or pets. No new medications in the past month. Physical Examination: Vitals: Stable. Afebrile. General: Well-nourished and well-developed. Head: Normocephalic atraumatic. HEENT: Moderate swelling of his uvula. There is no angioedema of his lips, tongue, oropharynx. Neck: Supple, no lymphadenopathy. No JVD. Nontender. Cardiovascular: Regular rate and rhythm. No murmurs. Respiratory: No respiratory distress. Clear to auscultation bilaterally. Abdominal: Soft, nontender, nondistended, normal bowel sounds. No guarding, rebound, or peritoneal signs. Back: Nontender. Extremities: Nontender, no edema. Skin: Normal color, no rash. Neurologic: Alert and oriented ?3. Cranial nerves II through XII are intact. Normal strength and sensation. Psych: Normal affect. Emergency Department Course and Treatment: Patient had an IV placed. He was given Benadryl, Pepcid, and Solu-Medrol IV. He was watched over the course of 2 hours and is improving. Treatment Plan: Patient will be discharged with prednisone, Zyrtec, and Pepcid. Instructed to follow-up with Dr. Castillo in 1 to 2 days if not improving. Return to the emergency department for any worsening symptoms. Disposition: To home in improved and stable condition. Impression: 1. Recurrent uvulitis, uncertain cause. This note was generated with [employer] dictation software. It may contain incorrect words, spelling, and punctuation that were not noted in review of the chart prior to signing ED Disposition - Plan for ED Patient: Instructions: ED Uvulitis Prescriptions: Prednisone [Deltasone] 40 mg PO DAILY #10 tablet Famotidine [Pepcid] 20 mg PO BID #28 tablet Cetirizine HCl [Zyrtec] 10 mg PO DAILY #14 capsule Referrals: Hany Castillo MD [STAFF PHYSICIAN] - 1-2 Days if not improving
[2019-08-27] MEDS: Famotidine 200 MG/20 ML MDV 20 MG in 0.9% Normal Saline (Pres. free 8 ML 300 MG IV (07:48)
[2019-08-27 08:43] VITALS: BP 126/92; PULSE 87; RESP 19; O2SAT 98
== END 2019-08-27 08:47 | disposition home or self-care (01) ==
PROVIDERS: Emergency Provider Emergency Medicine; PCP Family Medicine
DX: K12.2 Cellulitis and abscess of mouth (principal); F31.9 Bipolar disorder, unspecified; F41.9 Anxiety disorder, unspecified; Z79.899 Other long term (current) drug therapy
CPT/HCPCS: 96374; 96375; 99283; A4216; J3490

== ENCOUNTER 2019-10-23 04:50 | Emergency (ER) | payer OTHER, MEDICAID, SELFPAY ==
[2019-10-23 04:50] VITALS: BP 160/93; PULSE 81; RESP 16; TEMP 36.6; O2SAT 99; BMI 32.5
[2019-10-23] MEDS: MethylPREDNISolone 125 MG/2 ML Vial IV (05:06)
[2019-10-23] MEDS: DiphenhydrAMINE 50 MG/ML Syringe 25 MG IV (05:06)
[2019-10-23] MEDS: Famotidine 200 MG/20 ML MDV 20 MG in 0.9% Normal Saline (Pres. free 8 ML 300 MG IV (05:09)
--- NOTE | 2019-10-23 05:15 | ED.DCSUM_ITS ---
History of Present Illness Chief Complaint: Sore Throat Informant: Patient Onset: Today Current Severity: Mild Maximum Severity: Moderate Narrative: Patient presents secondary to sore throat and swelling. Patient has a history of recurrent uvulitis. He states he woke up at 2:00 this morning with some fullness in his throat. He took some Aleve and laid back down but symptoms did not improve so he presented to the emergency room. Patient denies any new foods or medications. He states that prior work-ups have not revealed the cause of his uvulitis. - Past Medical History (1) Anxiety and depression Status: Chronic (2) Uvulitis Status: Resolved (3) Acid reflux disease Status: Chronic (4) Bipolar disorder, unspecified Status: Chronic (5) GERD with esophagitis Status: Chronic Past Medical History - Allergies and Home Meds Allergies/Adverse Reactions: Allergies calamine Allergy (Verified 10/23/19 04:53) Swelling codeine Allergy (Verified 10/23/19 04:53) Hives perphenazine Allergy (Verified 10/23/19 04:53) Swelling rizatriptan Allergy (Verified 10/23/19 04:53) Anaphylaxis topiramate Allergy (Verified 10/23/19 04:53) Anaphylaxis morphine Adverse Reaction (Verified 10/23/19 04:53) Nausea/Vom/Diarrhea ENVIRONMENTAL Allergy (Uncoded 10/23/19 04:53) Itching Primary Care Physician: Bruno Tim DO [Primary Care Provider] - Prior records reviewed: Yes Surgical History: noncontributory, - - Right foot surgery. Smoking Status: Never smoker - Family History Maternal Family History: Family History (Last Updated 10/28/18 @ 08:40 by Mallory Bella) Mother Hypertension Cancer Family History: Reports: Diabetes, Heart Disease, Hypertension, - - Mini stroke Paternal Family History: Family History (Last Updated 10/28/18 @ 08:40 by Mallory Bella) Mother Hypertension Cancer Family History: Reports: - - Father estranged, denies known paternal medical history. Review of Systems General: Denies: Chills, Fever Eyes: Denies: Visual changes - bilaterally ENT: Reports: Sore throat Cardiovascular: Denies: Chest pain Respiratory: Denies: Dyspnea, Cough Gastrointestinal: Denies: Abdominal pain Musculoskeletal: Denies: Extremity Pain Skin: Denies: Rash Hematologic: Denies: Easy bruising, Easy bleeding Allergy: Denies: Uticaria Physical Exam Vital Signs/Narrative: Vital Signs Temp Pulse Resp BP Pulse Ox 10/23/19 04:50 97.8 F 81 16 160/93 H 99 Inital Vital Signs reviewed: Yes General: Well nourished, Well developed Head: Normocephalic Eyes: Perrl, EOMI ENT: Moist mucous membranes, - - Uvula and surrounding tissue mildly edematous. Patient is tolerating secretions. Minimally muffled voice is noted. Neck: Supple, No lymphadenopathy Cardiovascular: Regular rate, Regular rhythm Respiratory: No distress, CTA bilaterally Abdomen: Soft, Nontender Extremities: Nontender Skin: Normal color Neurological: Alert, Oriented x3 Psychological: Normal affect Diagnostic/Tx/Re-eval - Medical Decision Making Given Solu-Medrol, Benadryl, Pepcid. He was observed on tenuous pulse ox. On repeat evaluations patient does report feeling improved. His voice is stronger. Posterior pharynx examination still reveals mild uvular edema. Patient will be given prescriptions for prednisone, Benadryl, and Pepcid for home. ED Disposition - Plan for ED Patient: Disposition: Home or Assisted Living Diagnosis: Uvulitis Instructions: ED Uvulitis Prescriptions: DiphenhydrAMINE [Benadryl] 50 mg PO TID PRN PRN #20 cap PRN Reason: Allergies Transmission Status: Pending to [facility] Prednisone [Deltasone] 60 mg PO DAILY #15 tab Transmission Status: Pending to [facility] Famotidine [Pepcid] 20 mg PO BID #28 tab Transmission Status: Pending to [facility] Referrals: Bruno Tim DO [Primary Care Provider] - 3-5 Days if not improving
[2019-10-23 06:52] VITALS: BP 127/80; PULSE 77; RESP 16; O2SAT 98
== END 2019-10-23 06:53 | disposition home or self-care (01) ==
PROVIDERS: Emergency Provider Emergency Medicine; PCP Family Medicine
DX: K12.2 Cellulitis and abscess of mouth (principal); K21.0 Gastro-esophageal reflux disease with esophagitis; F31.9 Bipolar disorder, unspecified; F41.9 Anxiety disorder, unspecified; Z79.899 Other long term (current) drug therapy
CPT/HCPCS: 96365; 96366; 96375; 99283; A4216; J3490

== ENCOUNTER 2019-11-02 04:29 | Emergency (ER) | payer OTHER, MEDICAID, SELFPAY ==
[2019-11-02 04:30] VITALS: BP 143/91; PULSE 87; RESP 18; TEMP 36.2; O2SAT 97; BMI 31.2
--- NOTE | 2019-11-02 04:39 | ED.VIS.URI ---
History of Present Illness Chief Complaint: Sore Throat Narrative: Patient presenting for evaluation secondary to a sore throat and concerns for uvulitis. Patient has a past history of getting frequent uvulitis. Patient tells me that he will get this intermittently a couple of times a year. 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 He was here 10 days ago with a similar presentation and was treated with a course of prednisone Pepcid and Benadryl and did have improvement. Patient tells me that tonight he woke up and felt as if he was having similar symptoms. He had some scratchiness in his throat, and then he tried to swallow and noted that he felt his uvula to be enlarged. He denies being short of breath. Denies any cough. Denies any fever. He denies any lip or tongue swelling. Patient denies any new exposures such as soaps foods close detergents medications pets. No recent travel. Patient does report that he was supposed to see ear nose and throat, but has been unable to make an appointment as of yet. Pain is mild worse with swallowing. Review of systems otherwise negative. Past Medical History - Allergies and Home Meds Allergies/Adverse Reactions: Allergies calamine Allergy (Verified 11/02/19 04:33) Swelling codeine Allergy (Verified 11/02/19 04:33) Hives perphenazine Allergy (Verified 11/02/19 04:33) Swelling rizatriptan Allergy (Verified 11/02/19 04:33) Anaphylaxis topiramate Allergy (Verified 11/02/19 04:33) Anaphylaxis morphine Adverse Reaction (Verified 11/02/19 04:33) Nausea/Vom/Diarrhea ENVIRONMENTAL Allergy (Uncoded 11/02/19 04:33) Itching Primary Care Physician: Bruno Tim DO [Primary Care Provider] - Prior records reviewed: Yes Past Medical History: - - Bipolar Surgical History: noncontributory, - - Right foot surgery. Smoking Status: Former smoker - Family History Maternal Family History: Family History (Last Updated 10/28/18 @ 08:40 by Mallory Bella) Mother Hypertension Cancer Family History: Reports: Diabetes, Heart Disease, Hypertension, - - Mini stroke Paternal Family History: Family History (Last Updated 10/28/18 @ 08:40 by Mallory Bella) Mother Hypertension Cancer Family History: Reports: - - Father estranged, denies known paternal medical history. Review of Systems General: Denies: Chills, Fever, Sweats Eyes: Denies: Visual changes - bilaterally, Diplopia ENT: Reports: Sore throat Cardiovascular: Denies: Chest pain, Palpitations Respiratory: Denies: Dyspnea, Cough, Dyspnea on exertion Gastrointestinal: Denies: Abdominal pain, Nausea, Vomiting, Diarrhea, Melena, Hematochezia Genitourinary: Denies: Dysuria, Hematuria, Frequency Musculoskeletal: Denies: Back pain, Extremity Pain Skin: Denies: Rash, Wounds Neurological: Denies: Headache, Weakness, Numbness Physical Exam Vital Signs/Narrative: Vital Signs Temp Pulse Resp BP Pulse Ox 11/02/19 04:30 97.2 F L 87 18 143/91 H 97 Inital Vital Signs reviewed: Yes General: Well nourished, Well developed Head: Normocephalic, Atraumatic Eyes: Perrl, EOMI Ears: Normal external canal, TM's clear Nose: Normal Inspection, No Rhinorrhea Mouth/Throat: Normal Inspection, - - Airway is patent, there is no evidence of hot potato voice, stridor, or abnormal phonation. Patient does have evidence of a significantly swollen uvula. No evidence of posterior fullness, exudate, or asymmetry. Neck: Supple, Nontender Cardiovascular: Regular rate, Regular rhythm, No murmurs Respiratory: No distress, CTA bilaterally, Chest nontender Abdomen: Soft, Nontender, Nondistended, Normal bowel sounds Back: Nontender, Normal Inspection Extremities: Nontender, No edema Skin: Normal color, No rash Neurological: Alert, Oriented x3, Cranial nerves II-XII grossly intact, Normal Strength, Normal Sensation Psychological: Normal affect Diagnostic/Tx/Re-eval - Medical Decision Making Patient presented with a re-presentation of uvulitis. He does not have any evidence of airway compromise. Patient was administered prednisone in the emergency department. Patient has follow-up with ear nose and throat pending, I reviewed his medications and there is a potential that this could be secondary to his bupropion or his Depakote, but he did recently have allergy testing and that likely would have shown up in testing from an school community relations coordinator. Patient will be placed on a burst prednisone. He was recommended to follow-up with ENT. He understands signs and symptoms which to return. ED Disposition - Plan for ED Patient: Disposition: Home or Assisted Living Diagnosis: Uvulitis Instructions: ED Uvulitis Prescriptions: Prednisone [Deltasone] 40 mg PO DAILY #10 tab Prescription Printed Referrals: Delroy Castillo MD [STAFF PHYSICIAN] - As soon as possible
[2019-11-02] MEDS: predniSONE 20 MG Tablet 60 MG PO (04:43)
[2019-11-02 04:52] VITALS: BP 143/91; PULSE 87; RESP 18; O2SAT 97
== END 2019-11-02 04:53 | disposition home or self-care (01) ==
LOC: ED 04:53
PROVIDERS: Emergency Provider Emergency Medicine; PCP Family Medicine
DX: K12.2 Cellulitis and abscess of mouth (principal); F31.9 Bipolar disorder, unspecified; Z79.899 Other long term (current) drug therapy; Z87.891 Personal history of nicotine dependence
CPT/HCPCS: 99283

== ENCOUNTER → 2019-11-04 15:05 | Outpatient (CLI) | payer OTHER, MEDICAID, SELFPAY ==
[2019-11-02 04:30] VITALS: BMI 31.2
[2019-11-04 17:17] LABS: Absolute Lymphocyte Count 1.58 X10^3/uL (0.83-4.51); Basophil# 0.03 X10^3/uL; Basophil% 0.3 % (0-1); Hematocrit 48.1 % (40-54); Hemoglobin 16.1 g/dL (13.0-16.5); Lymphocyte # 1.58 X10^3/ul (4.0); Lymphocyte % 13.7 % (19-41); Mean Corp Hgb Conc 33.5 g/dL (32-36); Mean Corpuscular Hgb 30.9 pg (27.0-32.0); Mean Corpuscular Volume 92.3 fL (80-94); Monocyte% 6.9 % (0-10); NRBC Flagged by Analyzer 0 % (0-5); Neutrophil % 78.1 % (47-70); Platelet Count 265 K/mm3 (150-450); RBC Distribution Width CV 12.9 % (11.6-14.6); RBC Distribution Width SD 43.4 fl (35.1-43.9); Red Blood Count 5.21 M/mm3 (4.6-6.2); White Blood Count 11.5 K/mm3 (4.4-11.0)
== END ==
PROVIDERS: PCP Family Medicine; Referring Provider Otolaryngology Otolaryngology/Facial Plastic Surgery; Visit Provider Otolaryngology Otolaryngology/Facial Plastic Surgery
DX: D72.1 Eosinophilia (principal)
CPT/HCPCS: 36415; 85025

== ENCOUNTER → 2019-11-23 14:15 | Outpatient (CLI) | payer OTHER, MEDICAID, SELFPAY ==
[2019-11-02 04:30] VITALS: BMI 31.2
[2019-11-23 15:06] LABS: Absolute Lymphocyte Count 1.59 X10^3/uL (0.83-4.51); Absolute Neutrophil Count 4.1 X10^3/uL (2.0-7.7); Basophil# 0.03 X10^3/uL; Basophil% 0.5 % (0-1); Eosinophil# 0.21 X10^3/uL; Eosinophils% 3.2 % (0-5); Hemoglobin 15.7 g/dL (13.0-16.5); Lymphocyte # 1.59 X10^3/ul (4.0); Lymphocyte % 24.2 % (19-41); Mean Corp Hgb Conc 33.4 g/dL (32-36); Mean Corpuscular Hgb 30.8 pg (27.0-32.0); Mean Corpuscular Volume 92.3 fL (80-94); Mean Platelet Vol. 9.8 fl (6.2-12.0); Monocyte% 9.1 % (0-10); NRBC Flagged by Analyzer 0 % (0-5); Neutrophil # 4.12 X10^3/uL (2.7-7.7); Neutrophil % 62.5 % (47-70); Platelet Count 273 K/mm3 (150-450); RBC Distribution Width CV 12.4 % (11.6-14.6); RBC Distribution Width SD 42.3 fl (35.1-43.9); Red Blood Count 5.09 M/mm3 (4.6-6.2); White Blood Count 6.6 K/mm3 (4.4-11.0)
[2019-11-23 15:24] LABS: ALB/GLOB Ratio 1.2 RATIO (0.9-2.4); AST(SGOT) 15 U/L (15-37); Alanine Aminotransfer ALT/SGPT 32 U/L (16-61); Albumin, Serum 3.9 g/dL (3.2-5.0); Alkaline Phosphatase 40 U/L (45-117); Anion Gap 5 (5-15); BUN 12 mg/dL (7-18); BUN/Creat Ratio 9.9 RATIO (10-20); Calcium,Total 8.9 mg/dL (8.5-10.1); Chloride 112 mmol/L (98-107); Creatinine, Serum 1.21 mg/dL (0.70-1.30); EST Glomerular Filtration Rate 70 mL/min (>60); Est Glom Filt Rate - Afr Amer 85 mL/min (>60); Globulin 3.3 g/dL (2.2-4.2); Glucose 85 mg/dL (74-106); Potassium 3.7 mmol/L (3.5-5.1); Protein, Total 7.2 g/dL (6.4-8.2); Sodium Level 146 mmol/L (136-145)
[2019-11-23 15:36] LABS: Valproic Acid (Depakene) Level 23 ug/mL (50-100)
== END ==
PROVIDERS: PCP Family Medicine; Referring Provider Registered Nurse; Visit Provider Registered Nurse
DX: F32.9 Major depressive disorder, single episode, unspecified (principal); F19.10 Other psychoactive substance abuse, uncomplicated; Z79.899 Other long term (current) drug therapy; R53.83 Other fatigue
CPT/HCPCS: 36415; 80053; 80164; 85025

== ENCOUNTER 2019-12-06 03:53 | Emergency (ER) | payer OTHER, MEDICAID, SELFPAY ==
[2019-12-06 03:54] VITALS: BP 135/97; O2SAT 96; BMI 31.4
--- NOTE | 2019-12-06 05:22 | ED.VISSUMM ---
- ER Visit Summary Date of Service: 12/06/19 Chief Complaint: Swollen uvula History of Present Illness: The patient is a 39 M who presents with a swollen uvula that began this morning. Patient states he has had similar episodes in the past. Patient states his had several outpatient work-ups to determine the cause but they are unable to find any cause. Patient states he is having difficulty swallowing because of this. Patient denies any difficulty breathing. Patient denies any chest pain. Patient denies any nausea or vomiting. Patient denies any fevers or chills. Physical Examination: Vital signs are stable. Patient is afebrile. Patient is in no acute distress. Oral mucosa is pink and moist. There is some mild edema of the uvula. It is midline. There is no erythema of the uvula or oropharynx. Neck is supple. Trachea is midline. There is no JVD or lymphadenopathy. Heart was regular rate and rhythm. Lungs are clear and equal bilaterally. Abdomen is soft and nontender. Cranial nerves II through XII are intact. There are no focal motor or sensory deficits. Emergency Department Course and Treatment: Patient was given a dose of prednisone here. Patient was given a prescription for short course of prednisone. Patient was instructed to follow-up with his primary care physician in 5 to 7 days. Patient understood and was agreeable with the plan. All questions were answered. Disposition: Discharge home Impression: Uvula edema This note was generated with [employer] dictation software. It may contain incorrect words, spelling, and punctuation that were not noted in review of the chart prior to signing ED Disposition - Plan for ED Patient: Disposition: Home or Assisted Living Diagnosis: Uvular edema Instructions: ED Angioedema Prescriptions: predniSONE tablet 60 mg PO DAILY #15 tab Prescription Printed Referrals: Bruno Tim DO [Primary Care Provider] - 3-5 Days
[2019-12-06] MEDS: predniSONE 20 MG Tablet 60 MG PO (05:46)
[2019-12-06 05:50] VITALS: BP 132/92; PULSE 66; RESP 18; O2SAT 97
== END 2019-12-06 05:51 | disposition home or self-care (01) ==
PROVIDERS: Emergency Provider Emergency Medicine; PCP Family Medicine
DX: R60.9 Edema, unspecified (principal); R13.10 Dysphagia, unspecified; K21.9 Gastro-esophageal reflux disease without esophagitis; Z79.899 Other long term (current) drug therapy
CPT/HCPCS: 99281

== ENCOUNTER 2019-12-30 04:27 | Emergency (ER) | payer OTHER, MEDICAID, SELFPAY ==
[2019-12-30 04:28] VITALS: BP 135/87; PULSE 76; RESP 16; TEMP 35.8; O2SAT 97; BMI 35.9
--- NOTE | 2019-12-30 04:33 | ED.VIS.GEN ---
History of Present Illness Chief Complaint: Sore Throat Informant: Patient Narrative: 39-year-old male presenting with sore throat for the last 2 hours. He denies fever. He states he feels otherwise well. He states he does not have children at home or sick family. He states there have been a couple of people that have tested positive for Covid at his work but he has not been directly exposed to them that he knows of. He has not had a fever, cough, shortness of breath, loss of taste or smell. He has no nausea or vomiting. Initially he thought it was something he ate, but he states he was tested for food allergies and this is all negative. He has no other signs of allergic reaction. - Past Medical History (1) Sepsis Status: Chronic (2) Acid reflux disease Status: Chronic (3) Bipolar disorder, unspecified Status: Chronic Past Medical History - Allergies and Home Meds Allergies/Adverse Reactions: Allergies calamine Allergy (Verified 12/30/19 04:29) Swelling codeine Allergy (Verified 12/30/19 04:29) Hives perphenazine Allergy (Verified 12/30/19 04:29) Swelling rizatriptan Allergy (Verified 12/30/19 04:29) Anaphylaxis topiramate Allergy (Verified 12/30/19 04:29) Anaphylaxis morphine Adverse Reaction (Verified 12/30/19 04:29) Nausea/Vom/Diarrhea ENVIRONMENTAL Allergy (Uncoded 12/30/19 04:29) Itching Primary Care Physician: Bruno Tim DO [Primary Care Provider] - Prior records reviewed: Yes Past Medical History: - - Reviewed in problem list Surgical History: noncontributory, - - Right foot surgery. Lives: Spouse/ Significant Other Smoking Status: Former smoker Alcohol: None Drugs: None - Family History Maternal Family History: Family History (Last Updated 10/28/18 @ 08:40 by Mallory Bella) Mother Hypertension Cancer Family History: Reports: Diabetes, Heart Disease, Hypertension, - - Mini stroke Paternal Family History: Family History (Last Updated 10/28/18 @ 08:40 by Mallory Bella) Mother Hypertension Cancer Family History: Reports: - - Father estranged, denies known paternal medical history. Review of Systems General: Denies: Chills, Fever, Sweats Eyes: Denies: Visual changes - bilaterally, Diplopia ENT: Reports: Sore throat. Denies: Rhinorrhea Cardiovascular: Denies: Chest pain, Palpitations Respiratory: Denies: Dyspnea, Cough, Dyspnea on exertion Gastrointestinal: Denies: Abdominal pain, Nausea, Vomiting, Diarrhea, Melena, Hematochezia Genitourinary: Denies: Dysuria, Hematuria, Frequency Musculoskeletal: Denies: Back pain, Extremity Pain Skin: Denies: Rash, Wounds Neurological: Denies: Headache, Weakness, Numbness Physical Exam Vital Signs/Narrative: Vital Signs Temp Pulse Resp BP Pulse Ox 12/30/19 04:28 96.5 F L 76 16 135/87 H 97 General: Well nourished, Well developed, No Acute Distress Head: Normocephalic, Atraumatic Eyes: Perrl, EOMI ENT: Moist mucous membranes, No rhinorrhea, TM's clear, - - Tonsillar erythema with mild swelling. Neck: Supple, Nontender, No lymphadenopathy Cardiovascular: Regular rate, Regular rhythm Respiratory: No distress, CTA bilaterally Skin: Normal color, No rash. Negative for: Cyanosis Neurological: Alert, Oriented x3 Psychological: Normal affect, Normal Mood Diagnostic/Tx/Re-eval - Medical Decision Making 39-year-old male presenting with sore throat for last 2 hours. He has no other symptoms. He feels otherwise well. He states that there have been some people with Covid?19 at his work that have had to go home. He was tested for strep which was negative and went to culture. He was also tested for Covid and will quarantine until he gets his test results. He is given signs and symptoms to be aware of as well as return precautions. He acknowledged understanding. Patient stable for discharge. Impression: 1. Viral pharyngitis ED Disposition - Plan for ED Patient: Disposition: Home or Assisted Living Instructions: ED Pharyngitis Viral Referrals: Bruno Tim DO [Primary Care Provider] -
[2019-12-30] MEDS: dexAMETHasone 10 MG/ML Vial PO.IVFORM (05:13)
== END 2019-12-30 05:53 | disposition home or self-care (01) ==
PROVIDERS: Emergency Provider Student in an Organized Health Care Education/Training Program; PCP Family Medicine
DX: J02.8 Acute pharyngitis due to other specified organisms (principal); B97.89 Other viral agents as the cause of diseases classified elsewhere; Z20.828 Contact with and (suspected) exposure to other viral communicable diseases; K21.9 Gastro-esophageal reflux disease without esophagitis; F31.9 Bipolar disorder, unspecified; Z79.899 Other long term (current) drug therapy; Z87.891 Personal history of nicotine dependence
CPT/HCPCS: 87635; 87880; 99282; U0003

== ENCOUNTER 2020-02-22 07:34 | Emergency (ER) | payer OTHER, MEDICAID, SELFPAY ==
[2020-02-22 07:35] VITALS: BP 138/93; PULSE 102; RESP 20; TEMP 36.9; O2SAT 99; BMI 31.4
--- NOTE | 2020-02-22 07:48 | ED.DCSUM_ITS ---
History of Present Illness Chief Complaint: Sore Throat Informant: Patient Narrative: 1-year-old female presenting with sore throat. He states he feels like his throat swelling. Patient states he has had this in the past and usually requires prednisone for it. He denies any fever, chills, nausea, vomiting, change in taste or smell. He does not have a cough or shortness of breath. He has no difficulty with breathing or swallowing. - Past Medical History (1) Suicidal ideation Status: Chronic (2) Acid reflux disease Status: Chronic (3) Anxiety and depression Status: Chronic (4) Bipolar disorder, unspecified Status: Chronic Past Medical History - Allergies and Home Meds Allergies/Adverse Reactions: Allergies calamine Allergy (Verified 02/22/20 07:35) Swelling codeine Allergy (Verified 02/22/20 07:35) Hives perphenazine Allergy (Verified 02/22/20 07:35) Swelling rizatriptan Allergy (Verified 02/22/20 07:35) Anaphylaxis topiramate Allergy (Verified 02/22/20 07:35) Anaphylaxis morphine Adverse Reaction (Verified 02/22/20 07:35) Nausea/Vom/Diarrhea ENVIRONMENTAL Allergy (Uncoded 02/22/20 07:35) Itching Primary Care Physician: Bruno Tim DO [Primary Care Provider] - Surgical History: noncontributory, - - Right foot surgery. Smoking Status: Current some day smoker - Family History Maternal Family History: Family History (Last Updated 10/28/18 @ 08:40 by Mallory Bella) Mother Hypertension Cancer Family History: Reports: Diabetes, Heart Disease, Hypertension, - - Mini stroke Paternal Family History: Family History (Last Updated 10/28/18 @ 08:40 by Mallory Bella) Mother Hypertension Cancer Family History: Reports: - - Father estranged, denies known paternal medical history. Review of Systems General: Denies: Chills, Fever, Sweats Eyes: Denies: Visual changes - bilaterally, Diplopia ENT: Reports: Sore throat. Denies: Rhinorrhea Cardiovascular: Denies: Chest pain, Palpitations Respiratory: Denies: Dyspnea, Cough, Dyspnea on exertion Gastrointestinal: Denies: Abdominal pain, Nausea, Vomiting, Diarrhea, Melena, Hematochezia Genitourinary: Denies: Dysuria, Hematuria, Frequency Musculoskeletal: Denies: Back pain, Extremity Pain Skin: Denies: Rash, Wounds Neurological: Denies: Headache, Weakness, Numbness Psych: Denies: Depression, Anxiety Physical Exam Vital Signs/Narrative: Vital Signs Temp Pulse Resp BP Pulse Ox 02/22/20 07:35 98.4 F 102 H 20 H 138/93 H 99 Inital Vital Signs reviewed: Yes General: Well nourished, No Acute Distress Head: Normocephalic, Atraumatic Eyes: Perrl, EOMI ENT: Moist mucous membranes, No rhinorrhea, - - Oropharynx is patent without stridor. Mild posterior oropharyngeal erythema. No masses or swelling. Neck: Supple, Nontender, No lymphadenopathy Cardiovascular: Regular rate, Regular rhythm Respiratory: No distress, CTA bilaterally Skin: Normal color, No rash. Negative for: Cyanosis, Diaphoresis Neurological: Alert, Oriented x3, Cranial nerves II-XII grossly intact Psychological: Normal affect, Normal Mood Diagnostic/Tx/Re-eval - Medical Decision Making 39-year-old male presenting with sore throat. He states he has had this in the past and requires prednisone to help with it. Patient does not have any symptoms of Covid?19. His physical exam is normal with exception of some mild posterior oropharyngeal erythema. Patient's vital signs are stable and he is afebrile and nontoxic-appearing. Patient will be started on a prednisone burst for home. He is given return precautions. Patient stable for discharge. Impression: 1. Pharyngitis ED Disposition - Plan for ED Patient: Disposition: Home or Assisted Living Instructions: ED Pharyngitis, Viral Prescriptions: predniSONE tablet 60 mg PO DAILY #15 tab Transmission Status: Pending to [facility] Referrals: Bruno Tim DO [Primary Care Provider] -
[2020-02-22 08:06] VITALS: BP 121/74; PULSE 62; RESP 15; O2SAT 98
== END 2020-02-22 08:10 | disposition home or self-care (01) ==
LOC: ED 08:01
PROVIDERS: Emergency Provider Student in an Organized Health Care Education/Training Program; PCP Family Medicine
DX: J02.9 Acute pharyngitis, unspecified (principal); K21.9 Gastro-esophageal reflux disease without esophagitis; F31.9 Bipolar disorder, unspecified; F41.9 Anxiety disorder, unspecified; Z79.899 Other long term (current) drug therapy
CPT/HCPCS: 99282

== ENCOUNTER → 2020-06-19 10:34 | Outpatient (CLI) | payer MEDICAID, SELFPAY ==
[2020-06-19 11:22] LABS: Absolute Lymphocyte Count 2.57 X10^3/uL (0.83-4.51); Absolute Neutrophil Count 3.7 X10^3/uL (2.0-7.7); Basophil# 0.06 X10^3/uL; Basophil% 0.8 % (0-1); Eosinophil# 0.27 X10^3/uL; Eosinophils% 3.6 % (0-5); Hematocrit 53.5 % (40-54); Hemoglobin 17.5 g/dL (13.0-16.5); Lymphocyte # 2.57 X10^3/ul (0.83-4.51); Lymphocyte % 34.1 % (19-41); Mean Corp Hgb Conc 32.7 g/dL (32-36); Mean Corpuscular Hgb 28.9 pg (27.0-32.0); Mean Corpuscular Volume 88.4 fL (80-94); Mean Platelet Vol. 9.3 fl (6.2-12.0); Monocyte# 0.82 X10^3/uL; Monocyte% 10.9 % (0-10); NRBC Flagged by Analyzer 0 % (0-5); Neutrophil # 3.74 X10^3/uL (2.7-7.7); Neutrophil % 49.7 % (47-70); Platelet Count 267 K/mm3 (150-450); RBC Distribution Width CV 12.5 % (11.6-14.6); RBC Distribution Width SD 40.9 fl (35.1-43.9); Red Blood Count 6.05 M/mm3 (4.6-6.2); White Blood Count 7.5 K/mm3 (4.4-11.0)
[2020-06-19 11:49] LABS: Valproic Acid (Depakene) Level 30 ug/mL (50-100)
[2020-06-19 11:52] LABS: ALB/GLOB Ratio 1.1 RATIO (0.9-2.4); AST(SGOT) 14 U/L (15-37); Alanine Aminotransfer ALT/SGPT 32 U/L (16-61); Albumin, Serum 3.9 g/dL (3.2-5.0); Alkaline Phosphatase 50 U/L (45-117); Anion Gap 5 (5-15); BUN 13 mg/dL (7-18); BUN/Creat Ratio 12.5 RATIO (10-20); Calcium,Total 9.1 mg/dL (8.5-10.1); Chloride 103 mmol/L (98-107); Creatinine, Serum 1.04 mg/dL (0.70-1.30); EST Glomerular Filtration Rate 83 mL/min (>60); Est Glom Filt Rate - Afr Amer 101 mL/min (>60); Globulin 3.7 g/dL (2.2-4.2); Glucose 85 mg/dL (74-106); Potassium 3.9 mmol/L (3.5-5.1); Protein, Total 7.6 g/dL (6.4-8.2); Sodium Level 138 mmol/L (136-145)
== END ==
PROVIDERS: PCP Family Medicine; Referring Provider Registered Nurse; Visit Provider Registered Nurse
DX: F39 Unspecified mood [affective] disorder (principal); Z79.899 Other long term (current) drug therapy
CPT/HCPCS: 36415; 80053; 80164; 85025

== ENCOUNTER 2020-10-21 17:17 | Emergency (ER) | payer MEDICAID, SELFPAY ==
[2020-10-21 17:18] VITALS: BP 133/98; PULSE 104; RESP 16; TEMP 37.7; O2SAT 96; BMI 30.5
[2020-10-21 17:25] VITALS: BP 133/98; PULSE 104; RESP 16; TEMP 37.7; O2SAT 96
--- NOTE | 2020-10-21 18:10 | EX.ED.DYSGE1 ---
HPI History of Present Illness Chief Complaint: Rash Informant: patient Narrative Narrative: Patient presents with a rash on the right side of his back/chest area. Is been going on about 6 or 7 days. The triage note says fever but he states that the rash feels like it has a fever. It feels hot and burning to him. There is no generalized fever. No nausea vomiting. No trauma. He states he feels well. No known exposure. Nothing makes it better or worse. PFSH PFS Medical History Acid reflux disease Bipolar disorder, unspecified Depression Home Medications omeprazole 40 mg PO BID 03/08/13 [History Last Taken 06/04/18 22:00] Bupropion Hcl [Bupropion Hcl Sr] 150 mg PO BID 06/20/19 [History Last Taken Unknown] meclizine 12.5 mg PO TID PRN 06/20/19 [History Last Taken Unknown] trazodone 100 mg PO QHS PRN 06/20/19 [History Last Taken Unknown] epinephrine 0.3 mg IM X1 #2 syringe 06/27/19 [Rx Last Taken Unknown] divalproex 500 mg PO DAILY 07/10/19 [History Last Taken Unknown] cetirizine 10 mg PO DAILY #14 cap 08/27/19 [Rx Last Taken Unknown] prednisone 60 mg PO DAILY #15 tab 02/22/20 [Rx Last Taken Unknown] doxycycline monohydrate 100 mg PO BID #20 cap 10/21/20 [Rx Last Taken Unknown] prednisone 60 mg PO DAILY #15 tab 10/21/20 [Rx Last Taken Unknown] valacyclovir [Valtrex] 1,000 mg PO Q8H #21 tab 10/21/20 [Rx Last Taken Unknown] Allergy/AdvReac Type Severity Reaction Status Date / Time calamine Allergy Swelling Verified 10/21/20 17:18 codeine Allergy Hives Verified 10/21/20 17:18 perphenazine Allergy Swelling Verified 10/21/20 17:18 rizatriptan Allergy Anaphylaxis Verified 10/21/20 17:18 topiramate Allergy Anaphylaxis Verified 10/21/20 17:18 morphine AdvReac Nausea/Vom/ Verified 10/21/20 17:18 Diarrhea ENVIRONMENTAL Allergy Itching Uncoded 10/21/20 17:18 Family History (Updated 10/28/18 @ 08:40 by Mallory Bella) Mother Hypertension Cancer Social History Smoking Status: Current some day smoker tobacco type: cigarettes ROS ROS ED Constitutional Constitutional ED: Denies chills or fever(s) ENT ENT ED: Denies rhinorrhea or sore throat Cardiovascular Cardiovascular: Denies palpitations Respiratory/Chest Respiratory/Chest: Denies cough or dyspnea Gastrointestinal Gastrointestinal: Denies diarrhea, nausea or vomiting Musculoskeletal Musculoskeletal: Denies neck pain Integumentary Reports rash Neurologic Neurologic: Denies paresthesias or weakness Psychiatric Psychiatric: Reports depression Endocrine Endocrinology: Denies polydipsia or polyuria Allergic/Immunologic Allergic/Immunologic ED: Denies urticaria EXAM Physical Exam Const Vital Signs: 10/21/20 17:18 10/21/20 17:25 Temperature 99.9 F H 99.9 F H Temperature Source Temporal Temporal Pulse Rate 104 H 104 H Respiratory Rate 16 16 Blood Pressure 133/98 H 133/98 H Blood Pressure Mean 109 109 Pulse Ox 96 96 Oxygen Delivery Method Room Air Room Air Positive well nourished and well developed General Appearance ED: well developed and NAD HEENT Negative for trauma Eyes General Eye ED: Negative for pale conjunctiva or scleral icterus Neck no JVD Chest Wall Chest Narrative: Patient has erythema along chest wall at approximately the T7 area. There are some vesicles in the center. But there is also some indurated firm tissue in this area and some weeping. This feels a little bit different than what we normally see with shingles. Resp normal respiratory effort and clear to auscultation bilaterally Cardio regular rate and regular rhythm GI normal to inspection, nondistended, normoactive bowel sounds and non-tender Palpation: soft Extremity normal to inspection Neuro oriented x3 Sensorium / Orientation: alert Skin Skin Narrative: See above. MDM MDM MDM Narrative Medical decision making narrative: I believe this patient does have shingles as his primary illness. Even though he is late we will treat for this. But I am concerned with some of the firm induration of area. There is no abscess or fluctuance. But I am concerned that he is developing a secondary infection. Although I normally would not do this I will treat him with doxycycline. We discussed reasons to return and follow-up. We also discussed that this can go on for quite some time and medications do not always completely stop the process. We are also late in initiating therapy. Discharge Plan Triage Chief Complaint: Rash Other Complaint: Fever ED Provider: Jamil Kilpatrick Dx/Rx/DC Orders Clinical Impression: Shingles Instructions: ED Cellulitis, ED Shingles (Herpes Zoster) Prescriptions: New valacyclovir [Valtrex] 1 gram tablet 1,000 mg PO Q8H Qty: 21 RF: 0 prednisone 20 MG tablet 60 mg PO DAILY Qty: 15 RF: 0 doxycycline monohydrate 100 MG capsule 100 mg PO BID Qty: 20 RF: 0 No Action omeprazole 40 MG capsule 40 mg PO BID RF: 0 trazodone 100 MG tablet 100 mg PO QHS PRN (Reason: Sleep) RF: 0 meclizine 25 MG tablet 12.5 mg PO TID PRN (Reason: Dizziness) RF: 0 Bupropion Hcl [Bupropion Hcl Sr] 150 MG Tab.Sr.12h 150 mg PO BID RF: 0 epinephrine 0.3 MG syringe 0.3 mg IM X1 Qty: 2 RF: 0 divalproex 500 MG tablet,delayed release (DR/EC) 500 mg PO DAILY RF: 0 cetirizine 10 MG capsule 10 mg PO DAILY Qty: 14 RF: 0 prednisone 20 MG tablet 60 mg PO DAILY Qty: 15 RF: 0 Primary Care Provider: Bruno Tim Referrals: Bruno Tim DO [Primary Care Provider] - 3-5 Days Disposition Disposition: Home, Self Care
[2020-10-21 18:40] VITALS: PULSE 95; RESP 17; O2SAT 95
== END 2020-10-21 18:41 | disposition home or self-care (01) ==
PROVIDERS: Emergency Provider Emergency Medicine; PCP Family Medicine
DX: B02.9 Zoster without complications (principal); R50.9 Fever, unspecified; K21.9 Gastro-esophageal reflux disease without esophagitis; F31.9 Bipolar disorder, unspecified; F17.210 Nicotine dependence, cigarettes, uncomplicated; Z79.52 Long term (current) use of systemic steroids; Z79.899 Other long term (current) drug therapy
CPT/HCPCS: 99282

== ENCOUNTER 2020-12-12 20:48 | Emergency (ER) | payer MEDICAID, SELFPAY ==
[2020-12-12 20:49] VITALS: BP 142/96; PULSE 92; RESP 15; TEMP 35.9; O2SAT 97
--- NOTE | 2020-12-12 20:50 | RAD_ITS ---
INDICATION: PAIN EXAMINATION/TECHNIQUE: X-RAY - LEFT XR Ankle Min 3 Views 3 VIEWS COMPARISON: Left foot x-rays 12/12/2020 FINDINGS: Morphologic changes distal medial malleolus and osseous fragment may represent remote injury or unfused ossification center. There is no joint space widening however small spurs seen in the posterior distal tibia which appears to abut a water sized posterior trigonal ossicle may be associated with impingement. Ankle mortise spacing and alignment is normal. There is also tiny inferior calcaneal spur. No fracture or focal malalignment. There is some mild soft tissue swelling anterior ankle. No joint effusion. RAD/Ankle min 3 Views IMPRESSION: No evidence of traumatic osseous injury. Soft tissue swelling anterior ankle with no joint effusion. Tibial morphologic changes as above without tibiotalar joint space loss. Appearance could represent posterior impingement. Correlate clinically. Electronically Signed: Bunny Sheldon DO at 21:10 EDT Tel , Service support ,
--- NOTE | 2020-12-12 20:50 | RAD_ITS ---
INDICATION: PAIN EXAMINATION/TECHNIQUE: X-RAY - LEFT XR Foot Min 3 Views 3 VIEWS COMPARISON: Left ankle x-rays 12/12/2020 FINDINGS: No fracture or focal malalignment. Mild soft tissue swelling anterior ankle. Soft tissues are otherwise within normal limits. There are some mild degenerative changes of the first metatarsal phalangeal joint. Morphologic changes medial and posterior tibia and prominent posterior trigonal ossicle could be associated with impingement. RAD/Foot min 3 Views IMPRESSION: No fracture or traumatic malalignment. Mild soft tissue swelling anterior ankle. Morphologic and degenerative changes as above. Electronically Signed: Bunny Sheldon DO at 21:12 EDT Tel , Service support ,
--- NOTE | 2020-12-12 22:06 | ED.VIS.LOWEX ---
HPI History of Present Illness Chief Complaint: Lower Extremity Injury Informant: patient Occured/Mechanism Mechanism/Context: Yes unknown Onset/Context/Timing Onset: Weeks Context: Gradual Onset Timing: Continuous and Waxes and wanes Quality of Pain: Dull and Aching Location: Anterior lateral left ankle Current Severity: Mild Maximum Severity: Severe Worsened by: Movement while weightbearing and weightbearing in and of itself Relieved by: Nothing completely Associated Symptoms Associated Symptoms: Negative for Parasthesia, Weakness and Loss of Funtion Narrative Narrative: Patient is a 40-year-old male presents with pain left ankle. He is unaware of any specific injury. He has no history of gout or pseudogout. He has not injured this ankle to his knowledge in the past. He denies any other symptoms. He denies paresthesia, anesthesia or motor weakness. He denies symptoms of claudication. He denies fever or chills. Tetanus Immunization: >10 years Prior similar symptoms: No Recent Illness/Hospitalization: No [facility] Medical History Acid reflux disease Bipolar disorder, unspecified Depression Home Medications omeprazole 40 mg PO BID 03/08/13 [History Last Taken 06/04/18 22:00] Bupropion Hcl [Bupropion Hcl Sr] 150 mg PO BID 06/20/19 [History Last Taken Unknown] meclizine 12.5 mg PO TID PRN 06/20/19 [History Last Taken Unknown] trazodone 100 mg PO QHS PRN 06/20/19 [History Last Taken Unknown] epinephrine 0.3 mg IM X1 #2 syringe 06/27/19 [Rx Last Taken Unknown] divalproex 500 mg PO DAILY 07/10/19 [History Last Taken Unknown] cetirizine 10 mg PO DAILY #14 cap 08/27/19 [Rx Last Taken Unknown] prednisone 60 mg PO DAILY #15 tab 02/22/20 [Rx Last Taken Unknown] doxycycline monohydrate 100 mg PO BID #20 cap 10/21/20 [Rx Last Taken Unknown] prednisone 60 mg PO DAILY #15 tab 10/21/20 [Rx Last Taken Unknown] valacyclovir [Valtrex] 1,000 mg PO Q8H #21 tab 10/21/20 [Rx Last Taken Unknown] naproxen 500 mg PO BID #14 tab 12/12/20 [Rx Last Taken Unknown] Allergy/AdvReac Type Severity Reaction Status Date / Time calamine Allergy Swelling Verified 12/12/20 20:50 codeine Allergy Hives Verified 12/12/20 20:50 perphenazine Allergy Swelling Verified 12/12/20 20:50 rizatriptan Allergy Anaphylaxis Verified 12/12/20 20:50 topiramate Allergy Anaphylaxis Verified 12/12/20 20:50 morphine AdvReac Nausea/Vom/ Verified 12/12/20 20:50 Diarrhea ENVIRONMENTAL Allergy Itching Uncoded 12/12/20 20:50 Family History Mother Hypertension Cancer Social History (Updated 12/12/20 @ 22:[address] Ellis Mcmahan MD) household members: spouse Smoking Status: Current some day smoker tobacco type: cigarettes substance use type: does not use ROS ROS ED Constitutional Constitutional ED: Denies chills, fever(s), subjective, sweats or weight loss Musculoskeletal Musculoskeletal: Denies arthralgias, back pain or myalgias Integumentary Denies Abrasions or rash Neurologic Neurologic: Denies paresthesias or weakness Hematologic/Lymphatic Hematologic/Lymphatic: Denies easy bleeding, easy bruising or lymphadenopathy EXAM Physical Exam Const Vital Signs: 12/12/20 20:49 Temperature 96.7 F L Temperature Source Temporal Pulse Rate 92 Respiratory Rate 15 Blood Pressure 142/96 H Blood Pressure Mean 111 Pulse Ox 97 Oxygen Delivery Method Room Air Positive well nourished General Appearance ED: NAD HEENT normocephalic and atraumatic Neck full ROM Resp normal respiratory effort Cardio regular rate and regular rhythm Extremity full ROM; Negative for normal to inspection Extremity Narrative: There is soft tissue swelling noted anterior the lateral malleolus. There is pain ovation over the anterior talofibular,. There is no pain the patient over the deltoid ligament or the medial malleolus. There is minimal discomfort over the tip of the lateral malleolus. There is minimal discomfort posterior lateral malleolus. General Extremety ED: Yes weight-bearing difficulty; Negative for cyanosis or edema General Extremity: weight-bearing difficulty; Negative for cyanosis or edema Neuro CN's II-XII intact bilaterally and moves all extremities Sensorium / Orientation: alert Motor Exam: strength 5/5 throughout Psych mental status grossly normal Skin no wounds Lesions: no lesions Rashes: no rashes MDM MDM MDM Narrative Medical decision making narrative: X-ray was obtained to rule out fracture. Per nurse protocol x-ray of the ankle and foot were obtained. There is evidence of soft tissue swelling laterally. There is evidence of an old avulsion fracture of the medial malleolus. There is otherwise no abnormality noted on the 3 view ankle and 3 view foot x-ray that was interpreted by me and radiologist. Radiography Diagnostic Testing: Clinical Impression(s) from Imaging Studies Ankle X-Ray 12/12/20 20:50 IMPRESSION: No evidence of traumatic osseous injury. Soft tissue swelling anterior ankle with no joint effusion. Tibial morphologic changes as above without tibiotalar joint space loss. Appearance could represent posterior impingement. Correlate clinically. Electronically Signed: Bunny Sheldon DO at 21:10 EDT Tel , Service support , Foot X-Ray 12/12/20 20:50 IMPRESSION: No fracture or traumatic malalignment. Mild soft tissue swelling anterior ankle. Morphologic and degenerative changes as above. Electronically Signed: Bunny Sheldon DO at 21:12 EDT Tel , Service support , Discharge Plan Triage Chief Complaint: Lower Extremity Injury ED Provider: Ellis Mcmahan Dx/Rx/DC Orders Clinical Impression: Sprain of anterior talofibular ligament of left ankle Instructions: ED Sprain Ankle W X Ray Prescriptions: New naproxen 500 MG tablet 500 mg PO BID Qty: 14 RF: 0 No Action omeprazole 40 MG capsule 40 mg PO BID RF: 0 trazodone 100 MG tablet 100 mg PO QHS PRN (Reason: Sleep) RF: 0 meclizine 25 MG tablet 12.5 mg PO TID PRN (Reason: Dizziness) RF: 0 Bupropion Hcl [Bupropion Hcl Sr] 150 MG Tab.Sr.12h 150 mg PO BID RF: 0 epinephrine 0.3 MG syringe 0.3 mg IM X1 Qty: 2 RF: 0 divalproex 500 MG tablet,delayed release (DR/EC) 500 mg PO DAILY RF: 0 cetirizine 10 MG capsule 10 mg PO DAILY Qty: 14 RF: 0 prednisone 20 MG tablet 60 mg PO DAILY Qty: 15 RF: 0 valacyclovir [Valtrex] 1 gram tablet 1,000 mg PO Q8H Qty: 21 RF: 0 prednisone 20 MG tablet 60 mg PO DAILY Qty: 15 RF: 0 doxycycline monohydrate 100 MG capsule 100 mg PO BID Qty: 20 RF: 0 Primary Care Provider: Bruno Tim Referrals: Bruno Tim DO [Primary Care Provider] - 10-14 Days if not better Activity Restrictions/Additional Instructions: 1. Draw the output with your foot 6-8 times a day for the next 1 week 2. Use the stretch band to strengthen the ligament that has been injured 3. Apply ice 6-8 times a day 4. Take Naprosyn as instructed. 5. If there is no improvement in 10 to 14 days follow-up with Dr. Tim 6. Do not go up inclines or on ladders. 7. Wear air splint during the day Disposition Disposition: Home, Self Care
== END 2020-12-12 22:33 | disposition home or self-care (01) ==
PROVIDERS: Emergency Provider Emergency Medicine; PCP Family Medicine
DX: S93.492A Sprain of other ligament of left ankle, initial encounter (principal); X58.XXXA Exposure to other specified factors, initial encounter; Y93.9 Activity, unspecified; Y92.9 Unspecified place or not applicable; Y99.9 Unspecified external cause status; K21.9 Gastro-esophageal reflux disease without esophagitis; F31.9 Bipolar disorder, unspecified; F17.210 Nicotine dependence, cigarettes, uncomplicated; Z79.1 Long term (current) use of non-steroidal anti-inflammatories (NSAID); Z79.52 Long term (current) use of systemic steroids; Z79.899 Other long term (current) drug therapy
CPT/HCPCS: 73610; 73630; 99283

== ENCOUNTER 2021-02-10 14:11 | Emergency (ER) | payer MEDICAID, SELFPAY ==
[2021-02-10 14:12] VITALS: BP 128/93; PULSE 81; RESP 16; TEMP 36.5; O2SAT 97; BMI 31.4
--- NOTE | 2021-02-10 14:42 | EDS_ITS ---
HPI History of Present Illness Chief Complaint: Allergic Reaction Informant: patient Narrative Narrative: Patient states he is having rash develop on both of his hands. This has been going on a few days. 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 But he has been using these for 6 months without problems. He cannot think of any other exposures. He has not tried anything on this. It is isolated to the back of his hands. Nowhere else. No fevers chills sweats. Nothing specifically makes it better or worse but nothing has been tried. [facility] Medical History Acid reflux disease Bipolar disorder, unspecified Depression Home Medications omeprazole 40 mg PO BID 03/08/13 [History Last Taken 06/04/18 22:00] Bupropion Hcl [Bupropion Hcl Sr] 150 mg PO BID 06/20/19 [History Last Taken Unknown] meclizine 12.5 mg PO TID PRN 06/20/19 [History Last Taken Unknown] trazodone 100 mg PO QHS PRN 06/20/19 [History Last Taken Unknown] epinephrine 0.3 mg IM X1 #2 syringe 06/27/19 [Rx Last Taken Unknown] divalproex 500 mg PO DAILY 07/10/19 [History Last Taken Unknown] cetirizine 10 mg PO DAILY #14 cap 08/27/19 [Rx Last Taken Unknown] prednisone 60 mg PO DAILY #15 tab 02/22/20 [Rx Last Taken Unknown] doxycycline monohydrate 100 mg PO BID #20 cap 10/21/20 [Rx Last Taken Unknown] prednisone 60 mg PO DAILY #15 tab 10/21/20 [Rx Last Taken Unknown] valacyclovir [Valtrex] 1,000 mg PO Q8H #21 tab 10/21/20 [Rx Last Taken Unknown] naproxen 500 mg PO BID #14 tab 12/12/20 [Rx Last Taken Unknown] hydrocortisone 1 applic TOPICAL TID 7 Days #28.4 g 02/10/21 [Rx Last Taken Unknown] Allergy/AdvReac Type Severity Reaction Status Date / Time calamine Allergy Swelling Verified 02/10/21 14:13 codeine Allergy Hives Verified 02/10/21 14:13 perphenazine Allergy Swelling Verified 02/10/21 14:13 rizatriptan Allergy Anaphylaxis Verified 02/10/21 14:13 topiramate Allergy Anaphylaxis Verified 02/10/21 14:13 morphine AdvReac Nausea/Vom/ Verified 02/10/21 14:13 Diarrhea ENVIRONMENTAL Allergy Itching Uncoded 02/10/21 14:13 Family History Mother Hypertension Cancer Social History household members: spouse Smoking Status: Former smoker substance use type: does not use ROS ROS ED ENT ENT ED: Denies rhinorrhea Respiratory/Chest Respiratory/Chest: Denies cough Gastrointestinal Gastrointestinal: Denies nausea or vomiting Musculoskeletal Musculoskeletal: Denies arthralgias or myalgias Integumentary Reports rash; Denies abscess or Abrasions Neurologic Neurologic: Denies paresthesias Allergic/Immunologic Allergic/Immunologic ED: Denies mouth swelling, tongue swelling or urticaria EXAM Physical Exam Const Vital Signs: 02/10/21 14:12 Temperature 97.7 F L Temperature Source Temporal Pulse Rate 81 Respiratory Rate 16 Blood Pressure 128/93 H Blood Pressure Mean 104 Pulse Ox 97 Oxygen Delivery Method Room Air Positive well nourished and well developed General Appearance ED: well developed and NAD; Negative for cyanotic or diaphoretic HEENT Reports moist mucous membranes HEENT Narrative: No intraoral lesions or petechia. Resp normal respiratory effort Extremity Extremity Narrative: Patient has raised red areas in the back of both hands. Neuro oriented x3 Sensorium / Orientation: alert Psych mental status grossly normal Skin Skin Narrative: Raised red areas on the back of both hands. Most consistent with contact dermatitis. No pustules. This does not appear to be consistent with cellulitis. No palmar involvement MDM MDM MDM Narrative Medical decision making narrative: Patient will be treated with topical hydrocortisone. I explained that if he can try a different glove that would be beneficial. It is also possible that he could have gotten some other chemical inside the glove while cooking that caused him a unique episode. I recommend he gently clean the hands frequently. We will use hydrocortisone. He will follow up with his physician. Discharge Plan Triage Chief Complaint: Allergic Reaction ED Provider: Jamil Kilpatrick Dx/Rx/DC Orders Clinical Impression: Contact dermatitis of hand Instructions: ED Contact Dermatitis Prescriptions: New hydrocortisone 1 % cream 1 applic topical TID 7 Days Qty: 28.4 RF: 1 No Action omeprazole 40 MG capsule 40 mg PO BID RF: 0 trazodone 100 MG tablet 100 mg PO QHS PRN (Reason: Sleep) RF: 0 meclizine 25 MG tablet 12.5 mg PO TID PRN (Reason: Dizziness) RF: 0 Bupropion Hcl [Bupropion Hcl Sr] 150 MG Tab.Sr.12h 150 mg PO BID RF: 0 epinephrine 0.3 MG syringe 0.3 mg IM X1 Qty: 2 RF: 0 divalproex 500 MG tablet,delayed release (DR/EC) 500 mg PO DAILY RF: 0 cetirizine 10 MG capsule 10 mg PO DAILY Qty: 14 RF: 0 prednisone 20 MG tablet 60 mg PO DAILY Qty: 15 RF: 0 valacyclovir [Valtrex] 1 gram tablet 1,000 mg PO Q8H Qty: 21 RF: 0 prednisone 20 MG tablet 60 mg PO DAILY Qty: 15 RF: 0 doxycycline monohydrate 100 MG capsule 100 mg PO BID Qty: 20 RF: 0 naproxen 500 MG tablet 500 mg PO BID Qty: 14 RF: 0 Primary Care Provider: Bruno Tim Referrals: Bruno Tim DO [Primary Care Provider] - 1 Week if not improving Disposition Disposition: Home, Self Care Discharge Date/Time: 02/10/21 14:59
== END 2021-02-10 14:59 | disposition home or self-care (01) ==
PROVIDERS: Emergency Provider Emergency Medicine; PCP Family Medicine
DX: L25.9 Unspecified contact dermatitis, unspecified cause (principal); Z87.891 Personal history of nicotine dependence; Z79.899 Other long term (current) drug therapy; Z79.52 Long term (current) use of systemic steroids; Z79.1 Long term (current) use of non-steroidal anti-inflammatories (NSAID); K21.9 Gastro-esophageal reflux disease without esophagitis; F31.9 Bipolar disorder, unspecified
CPT/HCPCS: 99282

== ENCOUNTER 2021-05-07 03:02 | Emergency (ER) | payer MEDICAID, SELFPAY ==
[2021-05-07 03:03] VITALS: BP 148/106; PULSE 78; RESP 15; TEMP 36.6; O2SAT 99; BMI 31.4
--- NOTE | 2021-05-07 03:10 | EX.ED.DYSGE1 ---
HPI History of Present Illness Chief Complaint: Edema Detail of Chief Complaint: Uvulitis Informant: patient Onset/Context/Timing Onset: Hours Context: Gradual Onset Current Severity: Moderate Maximum Severity: Moderate Narrative Narrative: Patient presents secondary to swelling his uvula. He has a history of similar. He states he actually has not had any bad flares for a while but over the past several hours had developed swelling in his posterior airway again. He denies shortness of breath or difficulty swallowing. He denies new medications, foods, exposures. He has undergone multiple work-ups including allergy testing with no known cause of his symptoms. [facility] Medical History Acid reflux disease Bipolar disorder, unspecified Depression Home Medications omeprazole 40 mg PO DAILY 03/08/13 [History Last Taken 06/04/18 22:00] Bupropion Hcl [Bupropion Hcl Sr] 150 mg PO BID 06/20/19 [History Last Taken Unknown] epinephrine 0.3 mg IM X1 #2 syringe 06/27/19 [Rx Last Taken Unknown] divalproex 500 mg PO QHS 07/10/19 [History Last Taken Unknown] hydrocortisone 1 applic TOPICAL TID 7 Days #28.4 g 02/10/21 [Rx Last Taken Unknown] aripiprazole 15 mg PO DAILY 05/07/21 [History Last Taken Unknown] doxycycline monohydrate 250 mg PO DAILY 05/07/21 [History Last Taken Unknown] prednisone See Taper PO DAILY #63 tab 05/07/21 [Rx Last Taken Unknown] Allergy/AdvReac Type Severity Reaction Status Date / Time calamine Allergy Swelling Verified 05/07/21 03:06 codeine Allergy Hives Verified 05/07/21 03:06 perphenazine Allergy Swelling Verified 05/07/21 03:06 rizatriptan Allergy Anaphylaxis Verified 05/07/21 03:06 topiramate Allergy Anaphylaxis Verified 05/07/21 03:06 morphine AdvReac Nausea/Vom/ Verified 05/07/21 03:06 Diarrhea ENVIRONMENTAL Allergy Itching Uncoded 02/10/21 14:13 Family History Mother Hypertension Cancer Social History household members: spouse Smoking Status: Former smoker substance use type: does not use ROS ROS ED Constitutional Constitutional ED: Denies chills or fever(s) Eyes Eyes: Denies blurry vision ENT ENT ED: Reports other Details: Swollen uvula ; Denies rhinorrhea Cardiovascular Cardiovascular: Denies chest pain Respiratory/Chest Respiratory/Chest: Denies cough or dyspnea Gastrointestinal Gastrointestinal: Denies abdominal pain, nausea or vomiting Genitourinary Genitourinary ED: Denies dysuria Integumentary Denies rash Endocrine Endocrinology: Denies polydipsia or polyuria Allergic/Immunologic Allergic/Immunologic ED: Reports mouth swelling; Denies urticaria EXAM Physical Exam Const Vital Signs: 05/07/21 03:03 Temperature 97.9 F Temperature Source Oral Pulse Rate 78 Respiratory Rate 15 Blood Pressure 148/106 H Blood Pressure Mean 120 Pulse Ox 99 Oxygen Delivery Method Room Air Positive well nourished and well developed General Appearance ED: well developed HEENT Reports moist mucous membranes HEENT Narrative: Uvula is edematous. Uvula is midline. He is tolerating secretions well and speaks with a strong voice. Eyes PERRL and EOMs intact bilaterally Neck supple Chest Wall inspection of chest normal and palpation of chest normal Resp normal respiratory effort and clear to auscultation bilaterally Cardio regular rate and regular rhythm GI non-tender Palpation: soft Extremity normal to inspection Neuro oriented x3 Sensorium / Orientation: alert Psych mental status grossly normal Skin no rashes or lesions noted MDM MDM MDM Narrative Medical decision making narrative: Patient is given IV Benadryl, Solu-Medrol, Pepcid. He is observed for a total of 2 hours in the emergency room. Treatment and Re-Evaluation Narrative: On H repeat check patient's symptoms seem to be improving. Uvula remains full but edema is improving. He is tolerating secretions well and is leaning back in the bed without difficulty. He will be discharged with a prednisone taper. Discharge Plan Triage Chief Complaint: Edema ED Provider: Anum Pandya Dx/Rx/DC Orders Clinical Impression: Uvulitis Instructions: ED Uvulitis Prescriptions: New prednisone 10 mg tablet See Taper mg PO DAILY Qty: 63 RF: 0 No Action omeprazole 40 MG capsule 40 mg PO DAILY RF: 0 Bupropion Hcl [Bupropion Hcl Sr] 150 MG Tab.Sr.12h 150 mg PO BID RF: 0 epinephrine 0.3 MG syringe 0.3 mg IM X1 Qty: 2 RF: 0 divalproex 500 MG tablet,delayed release (DR/EC) 500 mg PO QHS RF: 0 hydrocortisone 1 % cream 1 applic topical TID 7 Days Qty: 28.4 RF: 1 aripiprazole 15 mg tablet 15 mg PO DAILY RF: 0 doxycycline monohydrate 100 MG capsule 250 mg PO DAILY RF: 0 Stand Alone Forms: ED Work / School Excuse Primary Care Provider: Bruno Tim Referrals: Bruno Tim DO [Primary Care Provider] - 1 Week Disposition Disposition: Home, Self Care
[2021-05-07] MEDS: DiphenhydrAMINE 50 MG/ML Syringe 25 MG IV (03:20)
[2021-05-07] MEDS: MethylPREDNISolone 125 MG/2 ML Vial IV (03:21)
[2021-05-07] MEDS: Famotidine 200 MG/20 ML MDV 20 MG in 0.9% Normal Saline (Pres. free 8 ML 300 MG IV (04:17)
[2021-05-07 05:10] VITALS: PULSE 68; RESP 18; O2SAT 100
== END 2021-05-07 05:11 | disposition home or self-care (01) ==
PROVIDERS: Emergency Provider Emergency Medicine; PCP Family Medicine; Visit Provider Emergency Medicine
DX: K12.2 Cellulitis and abscess of mouth (principal); F31.9 Bipolar disorder, unspecified; K21.9 Gastro-esophageal reflux disease without esophagitis; Z79.899 Other long term (current) drug therapy; Z87.891 Personal history of nicotine dependence
CPT/HCPCS: 96374; 96375; 99283; A4216; J3490

== ENCOUNTER → 2021-08-24 | Outpatient (CLI) | payer MEDICAID, SELFPAY ==
[2021-08-24 08:52] LABS: Absolute Neutrophil Count 2.7 X10^3/uL (2.0-7.7); Basophil# 0.04 X10^3/uL; Basophil% 0.7 % (0-1); Eosinophil# 0.24 X10^3/uL; Eosinophils% 4.2 % (0-5); Hematocrit 47.5 % (40-54); Hemoglobin 16.3 g/dL (13.0-16.5); Lymphocyte % 38.5 % (19-41); Mean Corp Hgb Conc 34.3 g/dL (32-36); Mean Corpuscular Hgb 30.9 pg (27.0-32.0); Mean Corpuscular Volume 90.1 fL (80-94); Mean Platelet Vol. 9.4 fl (6.2-12.0); Monocyte# 0.56 X10^3/uL; Monocyte% 9.8 % (0-10); NRBC Flagged by Analyzer 0 % (0-5); Neutrophil # 2.65 X10^3/uL (2.7-7.7); Neutrophil % 46.3 % (47-70); Platelet Count 250 K/mm3 (150-450); RBC Distribution Width CV 12.1 % (11.6-14.6); RBC Distribution Width SD 40.1 fl (35.1-43.9); Red Blood Count 5.27 M/mm3 (4.6-6.2); White Blood Count 5.7 K/mm3 (4.4-11.0)
[2021-08-24 09:14] LABS: Valproic Acid (Depakene) Level 40 ug/mL (50-100)
[2021-08-24 09:17] LABS: ALB/GLOB Ratio 1.2 RATIO (0.9-2.4); AST(SGOT) 18 U/L (15-37); Alanine Aminotransfer ALT/SGPT 38 U/L (16-61); Alkaline Phosphatase 35 U/L (45-117); Anion Gap 5 (5-15); BUN 17 mg/dL (7-18); BUN/Creat Ratio 16.7 RATIO (10-20); Calcium,Total 9.2 mg/dL (8.5-10.1); Chloride 107 mmol/L (98-107); Creatinine, Serum 1.02 mg/dL (0.70-1.30); EST Glomerular Filtration Rate 85 mL/min (>60); Est Glom Filt Rate - Afr Amer 102 mL/min (>60); Globulin 3.3 g/dL (2.2-4.2); Glucose 109 mg/dL (74-106); Potassium 4.3 mmol/L (3.5-5.1); Protein, Total 7.3 g/dL (6.4-8.2); Sodium Level 139 mmol/L (136-145)
== END | disposition home or self-care (01) ==
LOC: LAB 08:35
PROVIDERS: PCP Family Medicine; Visit Provider Registered Nurse
DX: F39 Unspecified mood [affective] disorder (principal); Z79.899 Other long term (current) drug therapy
CPT/HCPCS: 36415; 80053; 80164; 82140; 85025

== ENCOUNTER 2022-03-09 04:24 | Emergency (ER) | payer MEDICAID, SELFPAY ==
[2022-03-09 04:28] VITALS: BP 133/94; PULSE 80; RESP 18; TEMP 36.4; O2SAT 98; BMI 31.4
--- NOTE | 2022-03-09 04:38 | EDS_ITS ---
HPI History of Present Illness Chief Complaint: Edema Narrative Narrative: 41-year-old male past medical history of bipolar disorder, anxiety and depression presents with throat pain and swelling that he has had for the last 2 days. He states his symptoms began yesterday, he has pain with swallowing and he feels the back of his throat is swollen. He denies any fevers or chills. No nausea or vomiting. Additionally, he states he usually takes allergy medication in the morning, and has not taken it again today. 6 months ago, he states he saw Dr. Santos because he had the same type of problem, and was told to take his allergy medications. He states he was not diagnosed with anything in particular. Patient presents because of pain with swallowing, sore throat, and the feeling like the back of his throat is swollen. [facility] Medical History Acid reflux disease Bipolar disorder, unspecified Depression Home Medications omeprazole 40 mg capsule,delayed release 40 mg PO DAILY GERD 03/08/13 [History Last Taken 06/04/18 22:00] Bupropion Hcl [Bupropion Hcl Sr] 150 mg PO BID anxiety 06/20/19 [History Last Taken Unknown] epinephrine 0.3 mg/0.3 mL injection, auto-injector 0.3 mg (0.3 mL) IM X1 ##2 06/27/19 [Rx Last Taken Unknown] divalproex 500 mg tablet,delayed release 500 mg PO QHS 07/10/19 [History Last Taken Unknown] hydrocortisone 1 % topical cream 1 applic topical TID 1 week #28.4 grams 02/10/21 [Rx Last Taken Unknown] aripiprazole 15 mg tablet 15 mg PO DAILY 05/07/21 [History Last Taken Unknown] doxycycline monohydrate 100 mg capsule 250 mg PO DAILY 05/07/21 [History Last Taken Unknown] Allergy/AdvReac Type Severity Reaction Status Date / Time calamine Allergy Swelling Verified 05/07/21 03:06 codeine Allergy Hives Verified 05/07/21 03:06 Environmental Allergies: Allergy Itching Verified 01/09/22 15:54 Uncoded perphenazine Allergy Swelling Verified 05/07/21 03:06 rizatriptan Allergy Anaphylaxis Verified 05/07/21 03:06 topiramate Allergy Anaphylaxis Verified 05/07/21 03:06 morphine AdvReac Nausea/Vom/ Verified 05/07/21 03:06 Diarrhea Family History Mother Hypertension Cancer Social History household members: spouse Smoking Status: Former smoker substance use type: does not use ROS ROS ED ROS Narrative Constitutional: No fever, no chills. HEENT: Positive sore throat. Feels like back of throat is swollen. Positive odynophagia. No neck pain. No loss of vision. No rhinorrhea. Cardiovascular: No chest pain. No palpitations. No pedal edema. Respiratory: No cough, no shortness of breath. Abdominal: No abdominal pain. No nausea. No vomiting. Genitourinary: No dysuria. No hematuria. Musculoskeletal: No myalgias. No arthralgias. Neurologic: No headaches. No dizziness. No lightheadedness. Skin: No rash. No change in color. Psychiatric: No depression. No anxiety. EXAM Physical Exam Narrative Exam Narrative: Afebrile. Vital signs noted. HEENT: Normocephalic. Atraumatic. PERRL, EOMI. Neck soft and supple. No point tenderness or step off. Erythematous tonsils with suspected exudate. Airway patent. No meningismus. No drooling or trismus. Slight hot potato voice. Cardiovascular: Regular rate and rhythm. No murmurs, rubs, or gallops appreciated. Respiratory: No tachypnea. Lungs clear to auscultation bilaterally. Gastrointestinal: Abdomen soft, nontender, with normoactive bowel sounds. No rebound or guarding. Neurological: Awake. Alert. Nonfocal, nonlateralizing. Skin: No rash. Normal color. No pallor. Musculoskeletal: No pedal edema. Full range of motion extremities. Const Vital Signs: 03/09/22 04:28 03/09/22 05:30 Temperature 97.6 F L Temperature Source Oral Pulse Rate 80 77 Respiratory Rate 18 16 Blood Pressure 133/94 H Blood Pressure Mean 107 Pulse Ox 98 98 Oxygen Delivery Method Room Air MDM MDM MDM Narrative Medical decision making narrative: Patient is not diabetic. He does not take any LANA inhibitor. I have low suspicion for angioedema. I think he probably has more of a viral pharyngitis. Given his tonsillar exudate, rapid strep was obtained. Pulse ox is 98% on room air without evidence of hypoxia. He is laying with the head of the bed at 70 degrees and is handling his secretions well. Rapid strep is negative. At this point in time, I feel he can be discharged safely home with follow-up. He was given Decadron 8 mg orally and will take his allergy medication as previously directed by his ENT as last time this happened. I reviewed his outpatient record and he had uvulitis before. I do not see an overtly swollen uvula at this time, but I am unable to give him Benadryl like he received last time because he drove here. Once again, I do not think that this is an allergic reaction. I do not feel antibiotics are indicated. Repeat examination at approximately 0530 shows him resting comfortably without drooling. Return instructions to the emergency department were reviewed. Disposition is discharged home in stable condition. Lab Data Attestation: I reviewed the patient's lab results. Discharge Plan Triage Chief Complaint: Edema Other Complaint: Allergic Reaction ED Provider: Alonso Pereyra Dx/Rx/DC Orders Clinical Impression: Pharyngitis, Sore throat Instructions: ED Pharyngitis, Viral Prescriptions: No Action omeprazole 40 MG capsule 40 mg PO DAILY Label Comments: REFLUX Bupropion Hcl [Bupropion Hcl Sr] 150 MG Tab.Sr.12h 150 mg PO BID epinephrine 0.3 MG syringe 0.3 mg IM X1 Qty: 2 0RF divalproex 500 MG tablet,delayed release (DR/EC) 500 mg PO QHS hydrocortisone 1 % cream 1 applic topical TID 7 Days Qty: 28.4 1RF aripiprazole 15 mg tablet 15 mg PO DAILY Label Comments: TAKE 1 TABLET BY MOUTH EVERY DAY doxycycline monohydrate 100 MG capsule 250 mg PO DAILY Stand Alone Forms: ED Work / School Excuse Primary Care Provider: Bruno Tim Referrals: Delroy Castillo MD [Med Staff - Active Staff] - 3-5 Days if not improving Bruno Tim DO [Primary Care Provider] - Disposition Disposition: Home, Self Care Discharge Date/Time: 03/09/22 05:46
[2022-03-09 05:30] VITALS: PULSE 77; RESP 16; O2SAT 98
[2022-03-09] MEDS: dexAMETHasone 4 MG Tablet 8 MG PO (05:36)
== END 2022-03-09 05:46 | disposition home or self-care (01) ==
PROVIDERS: Emergency Provider Emergency Medicine; PCP Family Medicine; Visit Provider Emergency Medicine
DX: J02.9 Acute pharyngitis, unspecified (principal); F31.9 Bipolar disorder, unspecified; F41.9 Anxiety disorder, unspecified; K21.9 Gastro-esophageal reflux disease without esophagitis; Z79.899 Other long term (current) drug therapy; Z87.891 Personal history of nicotine dependence
CPT/HCPCS: 87880; 99283

== ENCOUNTER → 2022-04-01 | Outpatient (CLI) | payer MEDICAID, SELFPAY ==
[2022-04-01 12:46] LABS: Hemoglobin A1c 5.3 % (3.8-5.6); Vitamin B12 549 pg/mL (211-911)
[2022-04-01 12:54] LABS: Cholesterol 182 mg/dL (200); High Density Lipoprotein 33 mg/dL; Triglycerides 246 mg/dL; Very Low Density Lipoprotein 49 mg/dL (5-40)
== END | disposition home or self-care (01) ==
LOC: BFHLAB 08:42
PROVIDERS: PCP Family Medicine; Visit Provider Family Medicine
DX: Z00.00 Encounter for general adult medical examination without abnormal findings (principal); R20.2 Paresthesia of skin
CPT/HCPCS: 36415; 80061; 82607; 82746; 83036; 84443

== ENCOUNTER → 2022-05-21 | Outpatient (CLI) | payer MEDICAID, SELFPAY ==
[2022-05-21 10:00] LABS: Absolute Lymphocyte Count 2.15 X10^3/uL (0.83-4.51); Absolute Neutrophil Count 3.2 X10^3/uL (2.0-7.7); Basophil# 0.05 X10^3/uL; Basophil% 0.8 % (0-1); Eosinophil# 0.34 X10^3/uL; Eosinophils% 5.3 % (0-5); Hematocrit 48.5 % (40-54); Hemoglobin 16.7 g/dL (13.0-16.5); Lymphocyte # 2.15 X10^3/ul (0.83-4.51); Lymphocyte % 33.5 % (19-41); Mean Corp Hgb Conc 34.4 g/dL (32-36); Mean Corpuscular Hgb 30.6 pg (27.0-32.0); Mean Platelet Vol. 9.2 fl (6.2-12.0); Monocyte# 0.55 X10^3/uL; Monocyte% 8.6 % (0-10); NRBC Flagged by Analyzer 0 % (0-5); Neutrophil # 3.24 X10^3/uL (2.7-7.7); Neutrophil % 50.6 % (47-70); Platelet Count 256 K/mm3 (150-450); RBC Distribution Width CV 12.2 % (11.6-14.6); RBC Distribution Width SD 39.9 fl (35.1-43.9); Red Blood Count 5.45 M/mm3 (4.6-6.2); White Blood Count 6.4 K/mm3 (4.4-11.0)
[2022-05-21 10:22] LABS: ALB/GLOB Ratio 1.3 RATIO (0.9-2.4); AST(SGOT) 19 U/L (15-37); Alanine Aminotransfer ALT/SGPT 36 U/L (16-61); Alkaline Phosphatase 44 U/L (45-117); Anion Gap 5 (5-15); BUN 15 mg/dL (7-18); BUN/Creat Ratio 14.6 RATIO (10-20); Chloride 104 mmol/L (98-107); Creatinine, Serum 1.03 mg/dL (0.70-1.30); EST Glomerular Filtration Rate 83 mL/min (>60); Est Glom Filt Rate - Afr Amer 101 mL/min (>60); Globulin 3.1 g/dL (2.2-4.2); Glucose 112 mg/dL (74-106); Potassium 4.3 mmol/L (3.5-5.1); Protein, Total 7.1 g/dL (6.4-8.2); Sodium Level 136 mmol/L (136-145); Valproic Acid (Depakene) Level 38 ug/mL (50-100)
== END | disposition home or self-care (01) ==
PROVIDERS: PCP Family Medicine; Referring Provider Registered Nurse; Visit Provider Registered Nurse
DX: F39 Unspecified mood [affective] disorder (principal); Z79.899 Other long term (current) drug therapy
CPT/HCPCS: 36415; 80053; 80164; 82140; 85025

== ENCOUNTER → 2023-01-06 | Outpatient (CLI) | payer MEDICAID, SELFPAY | END | disposition home or self-care (01) | LOC: SL 20:05 | PROVIDERS: PCP Family Medicine; Referring Provider Nurse Practitioner Family; Visit Provider Nurse Practitioner Family | DX: G47.33 Obstructive sleep apnea (adult) (pediatric) (principal) | CPT/HCPCS: 95811 ==

== ENCOUNTER → 2023-02-11 | Outpatient (CLI) | payer MEDICAID, SELFPAY ==
--- OUTSIDE RECORDS SUMMARY | 2023-02-11 12:05 | XMS RPT_ITS | CCD ---
Author Name Unknown Address [address] [place] [address] Organization [facility] Results Test Name Value Interpretation Reference Range Facil ity Summary Purpose Family History No Family History Records Found Advance Directives No Advanced Directives Records Found Additional Source Comments (unrecognized sect ion and content) No Status Records Found INFORMATION SOURCE (unrecogn ized section and content) FOR RECORDS PERTAINING TO PATIENTS WHO ARE OR HAVE BEEN ENROLLED IN A CHEMICAL DEPENDENCY/SUBSTANCEABUSE PROGRAM, SOME INFORMATION MAY BE OMITTED. This clinical summary was aggregated from multiple sources. Caution should be exercised in using it in the provision of clinical care. This summary normalizes information from multiple sources, and as a consequence, information in this document may materially change the coding, format and clinical context of patient data. In addition, data may be omitted in some cases. CLINICAL DECISIONS SHOULD BE BASED ON THE PRIMARY CLINICAL RECORDS. [employer] provides no warranty or guarantee of the accuracy or completeness of information in this document.
== END | disposition home or self-care (01) ==
LOC: SL 11:01
PROVIDERS: PCP Family Medicine; Visit Provider Family Medicine
DX: Z00.00 Encounter for general adult medical examination without abnormal findings (principal)

== ENCOUNTER → 2023-04-24 | Outpatient (CLI) | payer MEDICAID, SELFPAY ==
--- OUTSIDE RECORDS SUMMARY | 2023-04-24 08:57 | XMS RPT_ITS | CCD ---
Author Name Unknown Address [address] [place] [address] Organization [facility] Results Test Name Value Interpretation [...] BE BASED ON THE PRIMARY CLINICAL RECORDS. [employer] provides no warranty or guarantee of the accuracy or completeness of information in this document.
[2023-04-24 12:25] LABS: Absolute Lymphocyte Count 1.57 X10^3/uL (0.83-4.51); Basophil# 0.06 X10^3/uL; Eosinophil# 0.41 X10^3/uL; Eosinophils% 7.2 % (0-5); Hematocrit 46.5 % (40-54); Hemoglobin 15.5 g/dL (13.0-16.5); Lymphocyte # 1.57 X10^3/ul (0.83-4.51); Lymphocyte % 27.4 % (19-41); Mean Corp Hgb Conc 33.3 g/dL (32-36); Mean Corpuscular Hgb 29.8 pg (27.0-32.0); Mean Corpuscular Volume 89.4 fL (80-94); Mean Platelet Vol. 9.6 fl (6.2-12.0); Monocyte# 0.66 X10^3/uL; Monocyte% 11.5 % (0-10); NRBC Flagged by Analyzer 0 % (0-5); Neutrophil # 2.97 X10^3/uL (2.7-7.7); Neutrophil % 51.9 % (47-70); Platelet Count 247 K/mm3 (150-450); RBC Distribution Width CV 12.4 % (11.6-14.6); RBC Distribution Width SD 40.7 fl (35.1-43.9); White Blood Count 5.7 K/mm3 (4.4-11.0)
[2023-04-24 14:45] LABS: ALB/GLOB Ratio 1.1 RATIO (0.9-2.4); AST(SGOT) 19 U/L (15-37); Alanine Aminotransfer ALT/SGPT 32 U/L (16-61); Albumin, Serum 3.9 g/dL (3.2-5.0); Alkaline Phosphatase 40 U/L (45-117); Anion Gap 7 (5-15); BUN 18 mg/dL (7-18); BUN/Creat Ratio 18.1 RATIO (10-20); Calcium,Total 8.9 mg/dL (8.5-10.1); Chloride 108 mmol/L (98-107); Cholesterol 159 mg/dL (200); EST Glomerular Filtration Rate 86 mL/min (>60); Est Glom Filt Rate - Afr Amer 105 mL/min (>60); Globulin 3.4 g/dL (2.2-4.2); Glucose 108 mg/dL (74-106); High Density Lipoprotein 37 mg/dL; Magnesium 2.1 mg/dL (1.6-2.6); Potassium 4.1 mmol/L (3.5-5.1); Protein, Total 7.3 g/dL (6.4-8.2); Sodium Level 139 mmol/L (136-145); Thyroid Stim Hormone (TSH) 1.69 uIU/mL (0.358-3.74); Triglycerides 176 mg/dL; Very Low Density Lipoprotein 35 mg/dL (5-40)
== END | disposition home or self-care (01) ==
LOC: BFHLAB 08:35
PROVIDERS: PCP Family Medicine; Visit Provider Family Medicine
DX: Z00.00 Encounter for general adult medical examination without abnormal findings (principal); R25.2 Cramp and spasm
CPT/HCPCS: 36415; 80053; 80061; 83735; 84443; 85025

== ENCOUNTER 2023-11-25 12:28 | Emergency (ER) | payer MEDICAID, SELFPAY ==
[2023-11-25 12:29] VITALS: BP 137/103; PULSE 98; RESP 16; TEMP 36.1; O2SAT 98; BMI 34.5
--- NOTE | 2023-11-25 14:45 | EDS_ITS ---
HPI History of Present Illness Chief Complaint: Dental Informant: patient and family Narrative Narrative: 43-year-old male presenting to the emergency room with dental pain. Patient states that he has had pain over the past week that has progressively gotten worse and last night he is unable to sleep. He states that the feeling that was on the molar on the right upper side has come off. He has an appointment but not till December dentistry as his insurance changed he denies any fevers. [facility] Medical History Acid reflux disease Bipolar disorder, unspecified Depression Home Medications ?Medication ?Instructions ?Recorded ?Last Taken ?Type omeprazole 40 mg capsule,delayed 40 mg PO DAILY GERD 03/08/13 06/04/18 22:00 History release Bupropion Hcl [Bupropion Hcl Sr] 150 mg PO BID anxiety 06/20/19 Unknown History epinephrine 0.3 mg/0.3 mL 0.3 mg (0.3 mL) IM X1 ##2 06/27/19 Unknown Rx injection, auto-injector divalproex 500 mg tablet,delayed 500 mg PO QHS 07/10/19 Unknown History release hydrocortisone 1 % topical cream 1 applic topical TID 1 week #28.4 02/10/21 Unknown Rx grams aripiprazole 15 mg tablet 15 mg PO DAILY 05/07/21 Unknown History doxycycline monohydrate 100 mg 250 mg PO DAILY 05/07/21 Unknown History capsule ibuprofen 600 mg tablet 600 mg PO Q6H PRN PRN pain #20 11/25/23 Unknown Rx TABLETS oxycodone-acetaminophen 5 mg-325 1 tab PO Q6H PRN PRN Pain 3 days 11/25/23 Unknown Rx mg tablet #12 TABLETS penicillin V potassium 250 mg 500 mg (2 x 250 mg) PO 4X/DAY #40 11/25/23 Unknown Rx tablet tabs Allergy/AdvReac Type Severity Reaction Status Date / Time calamine Allergy Swelling Verified 11/25/23 12:29 codeine Allergy Hives Verified 11/25/23 12:29 Environmental Allergies: Allergy Itching Verified 11/25/23 12:29 Uncoded perphenazine Allergy Swelling Verified 11/25/23 12:29 rizatriptan Allergy Anaphylaxis Verified 11/25/23 12:29 topiramate Allergy Anaphylaxis Verified 11/25/23 12:29 morphine AdvReac Nausea/Vom/ Verified 11/25/23 12:29 Diarrhea Family History Mother Hypertension Cancer Social History household members: spouse Smoking Status: Former smoker substance use type: does not use ROS ROS ED Constitutional Constitutional ED: Denies chills or weight loss Eyes Eyes: Denies change in vision or diplopia ENT ENT ED: Reports other Details: See history of present illness ; Denies ear pain, rhinorrhea or sore throat Cardiovascular Cardiovascular: Denies chest pain, orthopnea, palpitations or racing heartbeat Respiratory/Chest Respiratory/Chest: Denies cough, dyspnea or orthopnea Gastrointestinal Gastrointestinal: Denies abdominal pain, diarrhea, nausea or vomiting Genitourinary Genitourinary ED: Denies dysuria, hematuria or urinary frequency Musculoskeletal Musculoskeletal: Denies arthralgias or myalgias Integumentary Denies abscess or rash Neurologic Neurologic: Denies headache(s) or weakness Psychiatric Psychiatric: Denies anxiety, depression, suicidal ideation or suicidal thoughts Endocrine Endocrinology: Denies polydipsia, polyphagia or polyuria Allergic/Immunologic Allergic/Immunologic ED: Denies mouth swelling, tongue swelling or urticaria EXAM Physical Exam Const Vital Signs: 11/25/23 12:29 Temperature 96.9 F L Temperature Source Temporal Pulse Rate 98 Respiratory Rate 16 Blood Pressure 137/103 H Blood Pressure Mean 114 Pulse Ox 98 Oxygen Delivery Method Room Air Positive well nourished and well developed General Appearance ED: well developed HEENT Reports normocephalic, head/scalp atraumatic and moist mucous membranes HEENT Narrative: Right upper posterior most molar shows loss of the filling. There is no significant gum swelling or obvious abscess. No facial swelling or erythema. No trismus. There is tenderness on tooth percussion. No evidence of gingivitis or ANUG. Eyes PERRL and EOMs intact bilaterally Neck no lymphadenopathy, supple and no JVD Resp normal respiratory effort and clear to auscultation bilaterally Cardio regular rate, regular rhythm and no murmurs GI normal to inspection, nondistended, normoactive bowel sounds and non-tender Palpation: soft Back/Spine no CVA tenderness and normal ROM Extremity normal to inspection General Extremety ED: Negative for edema General Extremity: Negative for edema Neuro oriented x3 and CN's II-XII intact bilaterally Sensorium / Orientation: alert Motor Exam: strength 5/5 throughout Psych mental status grossly normal Mood & Affect: Negative for depressed or tearful Skin no rashes or lesions noted and no wounds MDM MDM MDM Narrative Medical decision making narrative: Differential diagnosis includes but not limited to dental fracture dental caries dental abscess ANUG Neville's angina. Patient will be started on some penicillin and pain control. Would recommend dental follow-up as soon as possible. History & Record Review Discussion w/independent historian: Patient Discharge Plan Triage Chief Complaint: Dental ED Provider: Esequiel Shearer Dx/Rx/DC Orders Clinical Impression: Pain, dental, Dental caries Instructions: ED Dental Cavity Prescriptions: New penicillin V potassium 250 mg tablet 500 mg PO 4X/DAY Qty: 40 0RF oxycodone-acetaminophen 5-325 mg tablet 1 tab PO Q6H PRN PRN (Reason: Pain) 3 Days Qty: 12 0RF ibuprofen 600 mg tablet 600 mg PO Q6H PRN PRN (Reason: pain) Qty: 20 0RF No Action omeprazole 40 MG capsule 40 mg PO DAILY Patient Comments: REFLUX Bupropion Hcl [Bupropion Hcl Sr] 150 MG Tab.Sr.12h 150 mg PO BID epinephrine 0.3 MG syringe 0.3 mg IM X1 Qty: 2 0RF divalproex 500 MG tablet,delayed release (DR/EC) 500 mg PO QHS hydrocortisone 1 % cream 1 applic topical TID 7 Days Qty: 28.4 1RF aripiprazole 15 mg tablet 15 mg PO DAILY Patient Comments: TAKE 1 TABLET BY MOUTH EVERY DAY doxycycline monohydrate 100 MG capsule 250 mg PO DAILY Primary Care Provider: Bruno Tim Referrals: Bruno Tim DO [Primary Care Provider] - Activity Restrictions/Additional Instructions: Please follow-up with dentistry as soon as possible. Print Language: Chinese Disposition Disposition: Home, Self Care Discharge Date/Time: 11/25/23 14:55
== END 2023-11-25 14:55 | disposition home or self-care (01) ==
LOC: ED 14:53
PROVIDERS: Emergency Provider Emergency Medicine; PCP Family Medicine; Visit Provider Emergency Medicine
DX: K08.89 Other specified disorders of teeth and supporting structures (principal); F31.9 Bipolar disorder, unspecified; K02.9 Dental caries, unspecified; K21.9 Gastro-esophageal reflux disease without esophagitis; Z79.899 Other long term (current) drug therapy; Z87.891 Personal history of nicotine dependence
CPT/HCPCS: 99282

== ENCOUNTER 2024-11-22 04:00 | Emergency (ER) | payer OTHER, SELFPAY ==
[2024-11-22 04:03] VITALS: BP 159/94; PULSE 75; RESP 18; TEMP 37; O2SAT 97; BMI 37.2
[2024-11-22] MEDS: 0.9% Normal Saline (1000mL) 1,000 ML 999 ML IV (04:40)
[2024-11-22 04:44] LABS: Hematocrit 46.4 % (40-54); Hemoglobin 16.4 g/dL (13.0-16.5); Immature Granulocytes Count 0.040 X10^3/uL (0.0-0.0); Mean Corp Hgb Conc 35.3 g/dL (32-36); Mean Corpuscular Volume 87.4 fL (80-94); Mean Platelet Vol. 9.6 fl (6.2-12.0); NRBC Flagged by Analyzer 0 % (0-5); Platelet Count 252 K/mm3 (150-450); RBC Distribution Width CV 12.3 % (11.6-14.6); RBC Distribution Width SD 39.5 fl (35.1-43.9); Red Blood Count 5.31 M/mm3 (4.6-6.2); White Blood Count 7.9 K/mm3 (4.4-11.0)
--- NOTE | 2024-11-22 05:00 | CT_ITS ---
PROCEDURE: ABDOMEN/PELVIS W IV CONT ONLY 11/22/2024 REASON FOR EXAM: ABD PAIN / ? DIVERTICULITIS TECHNIQUE: Procedure Code: [id number] Modality: CT Procedure: ABDOMEN/PELVIS W IV CONT ONLY Coronal and Sagittal reconstruction series were provided. CONTRAST: OMNIPAQUE 350 VOLUME: 100 mL One or more dose reduction techniques were used (e.g., Automated exposure control, adjustment of the mA and/or kV according to patient size, use of iterative reconstruction technique. RADIATION DOSE SUMMARY: CTDlvol: 23.61 mGy DLP: 1341 mGycm COMPARISON: None. FINDINGS: Subsegmental atelectatic changes in the right lung base. Hepatomegaly with hepatic steatosis. Diffuse colonic diverticulosis. Mild thickening of the sigmoid colon. Underdistention, spasm versus mild colitis. Mild changes of central mesenteric panniculitis. Fat containing umbilical hernia without incarceration. The visualized lung bases are unremarkable. Normal gallbladder and extrahepatic biliary system. Normal spleen. Normal pancreas. Normal bilateral adrenal glands. Normal size of the right kidney. There is no right renal mass. There are no right renal calculi. There is no right hydronephrosis. Normal visualized right ureter. Normal size of the left kidney. There is no left renal mass. There are no left renal calculi. There is no left hydronephrosis. Normal visualized left ureter. Normal visualized stomach. Normal small intestine. The appendix is visualized and appears normal. There is no demonstrated peritoneal fluid. Normal abdominal aorta. Normal inferior vena cava. Normal retroperitoneum. Normal urinary bladder. There is no pelvic mass lesion or lymphadenopathy. There is no pelvic fluid. Normal osseous structures. CT/Abdomen/Pelvis W IV Cont ONLY IMPRESSION: Subsegmental atelectatic changes in the right lung base. Hepatomegaly with hepatic steatosis. Diffuse colonic diverticulosis. Mild thickening of the sigmoid colon. Underdistention, spasm versus mild coliti s. Mild changes of central mesenteric panniculitis. Fat containing umbilical hernia without incarceration. Reading Location: [place] [id number]
[2024-11-22 05:07] LABS: AST(SGOT) 23 U/L (<=37); Alanine Aminotransfer ALT/SGPT 28 U/L (<=46); Albumin, Serum 4.2 g/dL (3.5-5.0); Alkaline Phosphatase 53 U/L (40-129); Anion Gap 11 (5-15); BUN 21 mg/dL (4-19); BUN/Creat Ratio 19.1 RATIO (10-20); Bilirubin, Direct 0.12 mg/dL (0.00-0.30); Calcium,Total 8.9 mg/dL (7.6-11.0); Carbon Dioxide 22.0 mmol/L (21.0-32.0); Chloride 103 mmol/L (98-108); Estimated Creatinine Clearance 122.12 ml/min (50-250); Globulin 2.9 g/dL (2.2-4.2); Glucose 110 mg/dL (70-99); Lipase 36 U/L (13-75); Potassium 4.1 mmol/L (3.3-5.1)
[2024-11-22 06:00] VITALS: BP 162/97; PULSE 71; RESP 18; O2SAT 96
[2024-11-22 06:49] VITALS: BP 167/62; PULSE 75; RESP 18; TEMP 36.6; O2SAT 97
--- NOTE | 2024-11-22 06:49 | EDS_ITS ---
HPI History of Present Illness Chief Complaint: Abd Pain [facility] Medical History Acid reflux disease Bipolar disorder, unspecified Depression Home Medications ?Medication ?Instructions ?Recorded ?Last Taken ?Type omeprazole 40 mg capsule,delayed 40 mg PO DAILY GERD 0 03/08/13 06/04/18 22:00 History release Bupropion Hcl [Bupropion Hcl Sr] 150 mg PO BID anxiety 06/20/19 Unknown History epinephrine 0.3 mg/0.3 mL 0.3 mg (0.3 mL) IM X1 ##2 Unknown Rx injection, auto-injector divalproex 500 mg tablet,delayed 500 mg PO QHS 0 Unknown History release aripiprazole 15 mg tablet 15 mg PO DAILY 05/07/21 Unkn own History amoxicillin 875 mg-potassium 1 tab PO BID 7 days #14 t abs 11/22/24 Unknown Rx clavulanate 125 mg tablet divalproex 250 mg tablet,delayed 750 mg PO DAILY 11/22 Unknown History release famotidine 40 mg tablet 40 mg PO DAILY 11/22/24 Unkn own History hydroxyzine HCl 25 mg tablet 25 mg PO DAILY 11/22/24 U nknown History rosuvastatin 10 mg tablet 10 mg PO DAILY 11/22/24 Unkn own History valbenazine 40 mg capsule 40 mg PO DAILY 11/22/24 Unkn own History (Ingrezza) Allergy/AdvReac Type Severity Reaction Status Date / Time calamine Allergy Swelling Verified 11/22/24 04:01 codeine Allergy Hives Verified 11/22/24 04:01 Environmental Allergies: Allergy Itching Verified 11/22/24 04:01 Uncoded perphenazine Allergy Swelling Verified 11/22/24 04:01 rizatriptan Allergy Anaphylaxis Verified 11/22/24 04:01 topiramate Allergy Anaphylaxis Verified 11/22/24 04:01 morphine AdvReac Nausea/Vom/ Verified 11/22/24 04:01 Diarrhea Family History Mother Hypertension Cancer Social History household members: spouse Smoking Status: Former smoker substance use type: does not use EXAM Physical Exam Const Vital Signs: 11/22/24 04:03 11/22/24 06:00 Temperature 98.6 F Temperature Source Oral Pulse Rate 75 71 Respiratory Rate 18 18 Blood Pressure 159/94 H 162/97 H Blood Pressure Mean 115 118 Pulse Ox 97 96 Oxygen Delivery Method Room Air Room Air [facility] Lab Data Labs: Laboratory Results - last 24 hr 11/22/24 04:05 WBC 7.9 RBC 5.31 Hgb 16.4 Hct 46.4 MCV 87.4 MCH 30.9 MCHC 35.3 RDW Std Deviation 39.5 RDW Coeff of Martin 12.3 Plt Count 252 MPV 9.6 Immature Gran % (Auto) 0.500 Neut % (Auto) 51.4 Lymph % (Auto) 32.2 Parker % (Auto) 9.3 Eos % (Auto) 5.8 H Baso % (Auto) 0.8 Absolute Neuts (auto) 4.1 Absolute Lymphs (auto) 2.55 Nucleated RBC % 0 Sodium 137 Potassium 4.1 Chloride 103 Carbon Dioxide 22.0 Anion Gap 11 BUN 21 H Creatinine 1.09 Estim Creat Clear Calc 122.12 Est GFR (MDRD) Non-Af 85 BUN/Creatinine Ratio 19.1 Glucose 110 H Calcium 8.9 Total Bilirubin 0.35 Direct Bilirubin 0.12 AST 23 ALT 28 Alkaline Phosphatase 53 Total Protein 7.1 Albumin 4.2 Globulin 2.9 Lipase 36 Radiography Diagnostic Testing: Clinical Impression(s) from Imaging Studies Abdomen/Pelvis CT 11/22/24 05:00 IMPRESSION: Subsegmental atelectatic changes in the right lung base. Hepatomegaly with hepatic steatosis. Diffuse colonic diverticulosis. Mild thickening of the sigmoid colon. Underdistention, spasm versus mild colitis. Mild changes of central mesenteric panniculitis. Fat containing umbilical hernia without incarceration. Reading Location: [place] [address] Discharge Plan Triage Chief Complaint: Abd Pain ED Provider: Billy Stewart Dx/Rx/DC Orders Clinical Impression: Colitis Instructions: ED Understanding Colitis Prescriptions: New amoxicillin-pot clavulanate 875-125 mg tablet 1 tab PO BID 7 Days Qty: 14 0RF No Action omeprazole 40 MG capsule 40 mg PO DAILY Patient Comments: REFLUX Bupropion Hcl [Bupropion Hcl Sr] 150 MG Tab.Sr.12h 150 mg PO BID epinephrine 0.3 MG syringe 0.3 mg IM X1 Qty: 2 0RF divalproex 500 MG tablet,delayed release (DR/EC) 500 mg PO QHS aripiprazole 15 mg tablet 15 mg PO DAILY Patient Comments: TAKE 1 TABLET BY MOUTH EVERY DAY divalproex 250 mg tablet,delayed release (DR/EC) 750 mg PO DAILY famotidine 40 mg tablet 40 mg PO DAILY hydroxyzine HCl 25 mg tablet 25 mg PO DAILY rosuvastatin 10 mg tablet 10 mg PO DAILY Ingrezza 40 mg capsule 40 mg PO DAILY Primary Care Provider: Bruno Tim Referrals: Bruno Tim DO [Primary Care Provider, Family Practice] Activity Restrictions/Additional Instructions: Your blood work revealed no clinically significant findings. Your CT scan showed a ventral hernia as well as inflammation along the colon known as colitis. This is most likely viral and should resolve spontaneously but in order to ensure it is not an early bacterial infection please take the antibiotic as directed. It will typically take 3 to 5 days for symptoms to improve. Return to the ER should you have any further concerns Print Language: Northern Irish Disposition Disposition: Home, Self Care
--- NOTE | 2024-11-22 06:49 | EX.ED.DYSGE1 ---
HPI History of Present Illness Chief Complaint: Abd Pain Informant: patient and spouse/S.O. Narrative Narrative: Patient is a 44-year-old male with past medical history of depression and bipolar disorder. He states over the last 1 to 2 days he has noticed pain mainly in the left lower abdomen. He states that it seems to worsen when he eats. He states he feels like the pain will shoot from the left to right lower abdomen. He states however there has been no associated nausea vomiting diarrhea dysuria or constipation. He does state that there has been a bug going around work. He is unsure if his symptoms are related to potential infection from work or other complication and with this presents for evaluation. [facility] Medical History Acid reflux disease Bipolar disorder, unspecified Depression Home Medications ?Medication ?Instructions ?Recorded ?Last Taken ?Type omeprazole 40 mg capsule,delayed 40 mg PO DAILY GERD 03/08/13 06/04/18 22:00 History release Bupropion Hcl [Bupropion Hcl Sr] 150 mg PO BID anxiety 06/20/19 Unknown History epinephrine 0.3 mg/0.3 mL 0.3 mg (0.3 mL) IM X1 ##2 06/27/19 Unknown Rx injection, auto-injector divalproex 500 mg tablet,delayed 500 mg PO QHS 07/10/19 Unknown History release aripiprazole 15 mg tablet 15 mg PO DAILY 05/07/21 Unknown History amoxicillin 875 mg-potassium 1 tab PO BID 7 days #14 tabs 11/22/24 Unknown Rx clavulanate 125 mg tablet divalproex 250 mg tablet,delayed 750 mg PO DAILY 11/22/24 Unknown History release famotidine 40 mg tablet 40 mg PO DAILY 11/22/24 Unknown History hydroxyzine HCl 25 mg tablet 25 mg PO DAILY 11/22/24 Unknown History rosuvastatin 10 mg tablet 10 mg PO DAILY 11/22/24 Unknown History valbenazine 40 mg capsule 40 mg PO DAILY 11/22/24 Unknown History (Ingrezza) Allergy/AdvReac Type Severity Reaction Status Date / Time calamine Allergy Swelling Verified 11/22/24 04:01 codeine Allergy Hives Verified 11/22/24 04:01 Environmental Allergies: Allergy Itching Verified 11/22/24 04:01 Uncoded perphenazine Allergy Swelling Verified 11/22/24 04:01 rizatriptan Allergy Anaphylaxis Verified 11/22/24 04:01 topiramate Allergy Anaphylaxis Verified 11/22/24 04:01 morphine AdvReac Nausea/Vom/ Verified 11/22/24 04:01 Diarrhea Family History Mother Hypertension Cancer Social History household members: spouse Smoking Status: Former smoker substance use type: does not use ROS ROS ED Constitutional Constitutional ED: Denies chills or fever(s) ENT ENT ED: Denies sore throat Cardiovascular Cardiovascular: Denies chest pain Respiratory/Chest Respiratory/Chest: Denies cough or dyspnea Gastrointestinal Gastrointestinal: Reports abdominal pain; Denies constipation, diarrhea, nausea or vomiting Genitourinary Genitourinary ED: Denies dysuria Musculoskeletal Musculoskeletal: Denies back pain or myalgias Integumentary Denies rash Neurologic Neurologic: Denies headache(s) Hematologic/Lymphatic Hematologic/Lymphatic: Denies easy bleeding or easy bruising EXAM Physical Exam Const Vital Signs: 11/22/24 04:03 11/22/24 06:00 11/22/24 06:49 Temperature 98.6 F 98 F Temperature Source Oral Pulse Rate 75 71 75 Respiratory Rate 18 18 18 Blood Pressure 159/94 H 162/97 H 167/62 H Blood Pressure Mean 115 118 97 Pulse Ox 97 96 97 Oxygen Delivery Method Room Air Room Air Positive well nourished, well developed and obese General Appearance ED: well developed; Negative for pallor Nutritional Appearance: obese HEENT HEENT Narrative: Normocephalic atraumatic No tongue or lip swelling no oral lesions no airway edema or compromise; no secondary findings in the posterior pharynx to suggest infection Eyes PERRL and EOMs intact bilaterally General Eye ED: Negative for scleral icterus Neck supple Resp normal respiratory effort and clear to auscultation bilaterally Cardio regular rate and regular rhythm Rate: other Other Details: Heart is regular rate and rhythm without murmurs rubs or gallop Radial and carotid pulses are equal and symmetric GI non-distended and no masses GI Narrative: Abdomen is soft and nondistended with normal active bowel sounds. There is mild pain with palpation in the lower abdomen diffusely greatest in the left lower quadrant. No associated voluntary guarding or rigidity. No pulsatile mass. No peritoneal signs Auscultation: normoactive bowel sounds Palpation: soft Back/Spine no CVA tenderness Extremity normal to inspection Neuro oriented x3, CN's II-XII intact bilaterally and no sensory deficits noted Sensorium / Orientation: alert Motor Exam: strength 5/5 throughout Psych mental status grossly normal Skin no rashes or lesions noted, no wounds and skin turgor normal General Skin Exam: Negative for jaundice or pallor MDM MDM MDM Narrative Medical decision making narrative: Patient arrived to the ER hypertensive otherwise with stable vitals. He reported pain in the lower abdomen that he states worsened with eating but denied any associated constipation or diarrhea or dysuria. He does admit to known sick contacts at work. With pain greatest in the left lower quadrant there is concern for colitis versus diverticulitis. Patient could also have atypical presentation for kidney stone versus abnormal presentation for acute appendicitis biliary colic or pancreatitis. Secondary to this I elected to perform basic laboratory studies with CT scan of the abdomen and pelvis. Labs revealed no leukocytosis or left shift going against secondary infection. Lipase is normal going against pancreatitis and liver enzymes are also normal going against biliary colic/acute cholecystitis. CT scan showed colonic diverticulosis without obvious diverticulitis. It did document inflammation in the colon consistent with colitis. Otherwise there is no signs of acute appendicitis cholecystitis bowel obstruction or perforation. On reevaluation the patient is resting comfortably. With the CT scan showing changes concerning for colitis and his history of known sick contacts at work I feel this is most likely viral or inflammatory. However as he has only had symptoms for a day or so and there is also diverticulosis this could be early diverticulitis and therefore in order to ensure no progression of symptoms I will place him on a 7-day course of Augmentin. However as he does not have findings concerning for sepsis acute kidney injury and CT scan is not showing a surgical abdomen such as acute appendicitis or acute cholecystitis or signs of bowel obstruction or intestinal abscess or perforation he is otherwise safe for discharge History & Record Review Discussion w/independent historian: Patient and Significant other Lab Data Attestation: I reviewed the patient's lab results. Labs: Laboratory Results - last 24 hr 11/22/24 04:05 WBC 7.9 RBC 5.31 Hgb 16.4 Hct 46.4 MCV 87.4 MCH 30.9 MCHC 35.3 RDW Std Deviation 39.5 RDW Coeff of Martin 12.3 Plt Count 252 MPV 9.6 Immature Gran % (Auto) 0.500 Neut % (Auto) 51.4 Lymph % (Auto) 32.2 [place] % (Auto) 9.3 Eos % (Auto) 5.8 H Baso % (Auto) 0.8 Absolute Neuts (auto) 4.1 Absolute Lymphs (auto) 2.55 Nucleated RBC % 0 Sodium 137 Potassium 4.1 Chloride 103 Carbon Dioxide 22.0 Anion Gap 11 BUN 21 H Creatinine 1.09 Estim Creat Clear Calc 122.12 Est GFR (MDRD) Non-Af 85 BUN/Creatinine Ratio 19.1 Glucose 110 H Calcium 8.9 Total Bilirubin 0.35 Direct Bilirubin 0.12 AST 23 ALT 28 Alkaline Phosphatase 53 Total Protein 7.1 Albumin 4.2 Globulin 2.9 Lipase 36 Radiography Diagnostic Testing: Clinical Impression(s) from Imaging Studies Abdomen/Pelvis CT 11/22/24 05:00 IMPRESSION: Subsegmental atelectatic changes in the right lung base. Hepatomegaly with hepatic steatosis. Diffuse colonic diverticulosis. Mild thickening of the sigmoid colon. Underdistention, spasm versus mild colitis. Mild changes of central mesenteric panniculitis. Fat containing umbilical hernia without incarceration. Reading Location: [place] [id number] Discharge Plan Triage Chief Complaint: Abd Pain ED Provider: Billy Stewart Dx/Rx/DC Orders Clinical Impression: Colitis, Bipolar disorder, unspecified, Depression Instructions: ED Understanding Colitis Prescriptions: New amoxicillin-pot clavulanate 875-125 mg tablet 1 tab PO BID 7 Days Qty: 14 0RF No Action omeprazole 40 MG capsule 40 mg PO DAILY Patient Comments: REFLUX Bupropion Hcl [Bupropion Hcl Sr] 150 MG Tab.Sr.12h 150 mg PO BID epinephrine 0.3 MG syringe 0.3 mg IM X1 Qty: 2 0RF divalproex 500 MG tablet,delayed release (DR/EC) 500 mg PO QHS aripiprazole 15 mg tablet 15 mg PO DAILY Patient Comments: TAKE 1 TABLET BY MOUTH EVERY DAY divalproex 250 mg tablet,delayed release (DR/EC) 750 mg PO DAILY famotidine 40 mg tablet 40 mg PO DAILY hydroxyzine HCl 25 mg tablet 25 mg PO DAILY rosuvastatin 10 mg tablet 10 mg PO DAILY Ingrezza 40 mg capsule 40 mg PO DAILY Primary Care Provider: Bruno Tim Referrals: Bruno Tim DO [Primary Care Provider, [facility]] Activity Restrictions/Additional Instructions: Your blood work revealed no clinically significant findings. Your CT scan showed a ventral hernia as well as inflammation along the colon known as colitis. This is most likely viral and should resolve spontaneously but in order to ensure it is not an early bacterial infection please take the antibiotic as directed. It will typically take 3 to 5 days for symptoms to improve. Return to the ER should you have any further concerns Print Language: Maori Disposition Disposition: Home, Self Care Discharge Date/Time: 11/22/24 07:03
== END 2024-11-22 07:03 | disposition home or self-care (01) ==
PROVIDERS: Emergency Provider Emergency Medicine; PCP Family Medicine; Visit Provider Emergency Medicine
DX: R10.32 Left lower quadrant pain (principal); F31.9 Bipolar disorder, unspecified; K52.9 Noninfective gastroenteritis and colitis, unspecified; Z87.891 Personal history of nicotine dependence; R10.31 Right lower quadrant pain; K21.9 Gastro-esophageal reflux disease without esophagitis; Z79.899 Other long term (current) drug therapy
CPT/HCPCS: 74177; 80048; 80076; 83690; 85025; 96360; 96361; 99283; Q9967; A4216